=== PATIENT | male | born 1965 | race Caucasian/White ===

== ENCOUNTER → 2019-10-01 08:10 | Outpatient (BNVA) | payer OTHER, SELFPAY | PROVIDERS: Family Provider Family Medicine; PCP Emergency Medicine Emergency Medical Services; Visit Provider Internal Medicine Critical Care Medicine | DX: J45.909 Unspecified asthma, uncomplicated (principal); R91.1 Solitary pulmonary nodule | CPT/HCPCS: 80061; 82947; 83036 ==

== ENCOUNTER 2019-10-04 10:37 | Emergency (ER) | payer OTHER, SELFPAY ==
[2019-10-04 10:44] VITALS: BMI 28.1
[2019-10-04 10:47] VITALS: BP 113/90; PULSE 105; RESP 20; TEMP 37.3; O2SAT 94
[2019-10-04 11:00] VITALS: O2SAT 94
--- NOTE | 2019-10-04 11:06 | ED_ITS ---
HPI - General Adult General: Chief complaint: General Medical Stated complaint: cp/sob Time Seen by Provider: 10/04/19 10:46 History of Present Illness: HPI narrative: 54-year-old male comes in complaining of flulike symptoms for last couple days temp up to 100.9 he said nausea vomiting and diarrhea denies any hematochezia melena hematemesis or coffee-ground emesis is not had any ill contacts a little bit of pressure pressure associated with it as well. He has some asthma and states he has a chronic nocturnal cough but slightly worse the last few days but he has not been coughing anything up. He works in [employer] at [employer] [facility] [place]. Denies any radiation of chest pressure into the neck or arms. Onset (ago): day(s) Location: chest and abdomen Radiation: non-radiation Severity: mild Pain Consistency: intermittent Associated symptoms: Reports cough, decreased appetite, fevers/chills, malaise, nausea, vomiting and weakness; Deny chest pain, dyspnea or rash Treatments prior to arrival: none Review of Systems Const: Reports: malaise ENMT: Denies: throat pain, ear or mastoid pain, nasal discharge or nasal congestion Card: Denies: chest pain, edema, dyspnea on exertion or orthopnea Resp: Denies: dyspnea, productive cough or non-productive cough GI: Reports: nausea and vomiting : Denies: flank pain, dysuria, urinary frequency or urinary urgency Skin/Breast: Denies: rash or pruritus PFSH ED PFSH: Medical History Asthma Essential (primary) hypertension Hyperlipemia Lung nodule Major depressive disorder Pericarditis PTSD (post-traumatic stress disorder) Surgical History H/O eye surgery Social History Smoking and tobacco status: never smoked Alcohol intake: current Alcohol intake frequency: few times a month Alcohol type: beer Lives independently: Yes Household members: significant other and family Marital status: Single service: Yes Current occupational status: employed Current occupation: [employer] [place] History of recent travel: No Current gender identity: Male Physical Exam Const: COMMON NORMALS: no acute distress GENERAL APPEARANCE: cooperative and comfortable ORIENTATION/CONSCIOUSNESS: Yes awake, Yes oriented to person, Yes oriented to place and Yes oriented to time HENMT: COMMON NORMALS: normocephalic, atraumatic, hearing grossly normal bilaterally, external ears normal, EAC's normal, TM's normal bilaterally, Normal nasal mucous membranes and turbinates present, moist oral mucous membranes and oropharynx normal HEAD & SCALP: normocephalic and atraumatic NOSE: Normal nasal mucous membranes and turbinates present EXTERNAL EAR: Yes external ears normal EXTERNAL AUDITORY CANAL: EAC's normal TYMPANIC MEMBRANE: TM's normal bilaterally Eye: COMMON NORMALS: Equal, round and reactive pupils present, EOMs intact bilaterally, conjunctivae normal and no scleral icterus CONJUNCTIVA: Yes conjunctivae normal PUPIL: Yes Equal, round and reactive pupils present Neck/C-Spine: COMMON NORMALS: full ROM, no lymphadenopathy, supple and no JVD Lymph: LYMPHATIC: no lymphadenopathy noted and no lymphedema noted Resp: COMMON NORMALS: normal respiratory effort, No retractions, No use of accessory muscles and clear to auscultation bilaterally AUSCULTATION: clear to auscultation bilaterally Cardio: COMMON NORMALS: no JVD, regular rate, regular rhythm and No murmurs present (Cardio) RATE: regular rate RHYTHM: regular rhythm GI: COMMON NORMALS: Soft to palpation and No hepatosplenomegaly present AUSCULTATION: Yes normoactive bowel sounds PALPATION: Yes Soft to palpation, No Tenderness to palpation present (GI), No Guarding due to palpation present (GI) and Yes No hepatosplenomegaly present Extremity: COMMON NORMALS: normal to inspection, capillary refill normal, no clubbing, cyanosis or edema, no calf tenderness and no pedal edema Neuro: SENSORIUM/ORIENTATION: Yes oriented to person, Yes oriented to place and Yes oriented to time Skin: COMMON NORMALS: no rashes or lesions noted GENERAL SKIN EXAM: no rashes or lesions noted Course Vital Signs: Vital signs: Vital Signs Temperature 99.2 F 10/04/19 10:47 Pulse Rate 107 H 10/04/19 14:04 Respiratory Rate 20 H 10/04/19 10:47 Blood Pressure 107/71 10/04/19 14:04 Pulse Oximetry 93 10/04/19 14:04 MDM - General Adult MDM Narrative: Medical decision making narrative: Patient is of concern because 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 He is not been associated with anyone at home or any known positive cases of COVID. His sats are a little bit on the low side but he maintains and we did ambulate him and he maintained around the 93 to 95% range. Discussed it with him working to go ahead and discharge him home we will put him on doxycycline and have him use albuterol aggressively. Little bit concerned with his elevated white count but finding no other source. We did do a COVID swab on him we should have that back this evening and made arrangements for him to be contacted he is to remain in quarantine until he gets his results back. Lab Data: Labs: Lab Results 10/04/19 10/04/19 10/04/19 Range/Units 10:55 10:55 10:55 WBC 23.1 H (4.0-10.0) 10^3/ uL RBC 5.24 (4.1-5.3) 10^6/u L Hgb 16.1 (11.7-16.6) g/dL Hct 47.2 (42.0-52.0) % MCV 90.1 (80-94) fL MCH 30.7 (28.0-34.0) pg MCHC 34.1 (30.0-36.0) g/dL RDW 12.0 L (12.1-15.1) % Plt Count 231 (130-400) 10^3/c mm MPV 10.3 (7.4-10.4) fL Neut % (Auto) 93.3 % Lymph % (Auto) 1.3 % [place] % (Auto) 4.5 % Eos % (Auto) 0.0 % Baso % (Auto) 0.3 % Neut # (Auto) 21.5 H (1.8-7.7) 10^3/u L Lymph # (Auto) 0.3 L (0.8-4.8) 10^3/u L [place] # (Auto) 1.1 H (0.2-0.9) 10^3/u L Eos # (Auto) 0.0 (0.0-0.8) 10^3/u L Baso # (Auto) 0.1 (0.0-0.1) 10^3/u L Nucleated RBC % (a uto) 0 % Nucleated RBCs # 0.0 /100WBC Sodium 133 L (136-145) mmol/L Potassium 4.2 (3.5-5.1) mmol/L Chloride 95 L (98-107) mmol/L Carbon Dioxide 24 (22-29) mmol/L Anion Gap 18.2 (5-19) BUN 20 (6-20) mg/dL Creatinine 1.2 (0.7-1.2) mg/dL GFR Calculation 63.1 L (90-130) mL/min Glucose 137 H (65-115) mg/dL Calculated Osmolal ity 275 L (285-295) mOsm/k g Lactate 1.8 (0.5-2.2) mmol/L Calcium 10.1 (8.5-10.5) mg/dL Total Bilirubin 0.5 (0.15-1.2) mg/dL AST 20 (0-40) U/L ALT 25 (0-41) U/L Alkaline Phosphata se 96 (40-130) IU/L Total Protein 7.2 (6.6-8.7) g/dL Albumin 5.0 (3.5-5.2) g/dL Globulin 2.2 (1.3-4.6) g/dL Lipase 13 (13-60) U/L Urine Color (Yellow) Urine Appearance (CLEAR) Urine pH (5-7) Ur Specific Gravit y (1.005-1.030) Urine Protein (Negative) Urine Glucose (UA) (Normal) Urine Ketones (Negative) Urine Blood (Negative) Urine Nitrate (Negative) Urine Bilirubin (NEGATIVE) Urine Urobilinogen (Negative) mg/dL Ur Leukocyte Romina ase (Negative) Urine RBC (0-2) /hpf Urine WBC (0-5) /hpf Ur Squamous Epith Cells (0-5) Urine Bacteria (NONE) Urine Mucus Influenza Type A A g (Negative) Influenza Type B A g (Negative) 10/04/19 10/04/19 Range/Units 12:24 13:12 WBC (4.0-10.0) 10^3/ uL RBC (4.1-5.3) 10^6/u L Hgb (11.7-16.6) g/dL Hct (42.0-52.0) % MCV (80-94) fL MCH (28.0-34.0) pg MCHC (30.0-36.0) g/dL RDW (12.1-15.1) % Plt Count (130-400) 10^3/c mm MPV (7.4-10.4) fL Neut % (Auto) % Lymph % (Auto) % [place] % (Auto) % Eos % (Auto) % Baso % (Auto) % Neut # (Auto) (1.8-7.7) 10^3/u L Lymph # (Auto) (0.8-4.8) 10^3/u L [place] # (Auto) (0.2-0.9) 10^3/u L Eos # (Auto) (0.0-0.8) 10^3/u L Baso # (Auto) (0.0-0.1) 10^3/u L Nucleated RBC % (a uto) % Nucleated RBCs # /100WBC Sodium (136-145) mmol/L Potassium (3.5-5.1) mmol/L Chloride (98-107) mmol/L Carbon Dioxide (22-29) mmol/L Anion Gap (5-19) BUN (6-20) mg/dL Creatinine (0.7-1.2) mg/dL GFR Calculation (90-130) mL/min Glucose (65-115) mg/dL Calculated Osmolal ity (285-295) mOsm/k g Lactate (0.5-2.2) mmol/L Calcium (8.5-10.5) mg/dL Total Bilirubin (0.15-1.2) mg/dL AST (0-40) U/L ALT (0-41) U/L Alkaline Phosphata se (40-130) IU/L Total Protein (6.6-8.7) g/dL Albumin (3.5-5.2) g/dL Globulin (1.3-4.6) g/dL Lipase (13-60) U/L Urine Color Yellow (Yellow) Urine Appearance Clear (CLEAR) Urine pH 5 (5-7) Ur Specific Gravit y 1.020 (1.005-1.030) Urine Protein Neg (Negative) Urine Glucose (UA) Norm (Normal) Urine Ketones 1+ H (Negative) Urine Blood 2+ H (Negative) Urine Nitrate Negative (Negative) Urine Bilirubin 1+ H (NEGATIVE) Urine Urobilinogen Norm (Negative) mg/dL Ur Leukocyte Romina ase Negative (Negative) Urine RBC 0-4 H (0-2) /hpf Urine WBC None (0-5) /hpf Ur Squamous Epith Cells 0-4 H (0-5) Urine Bacteria 1+ H (NONE) Urine Mucus 1+ Influenza Type A A g Negative (Negative) Influenza Type B A g Negative (Negative) Discharge Plan Discharge Patient Disposition: Home, Self-Care Clinical Impression: Bronchitis Condition: Stable Prescriptions: New doxycycline hyclate 100 mg capsule 100 mg PO BID 10 Days Qty: 20 RF: 0 No Action albuterol sulfate [ProAir HFA] 90 mcg/actuation HFA aerosol inhaler 2 puff INHALATION Q6H PRN (Reason: Shortness Of Breath) RF: 0 Complete Multivitamin Tablet 1 tab PO DAILY RF: 0 Symbicort 160-4.5 mcg/actuation HFA aerosol inhaler 2 puff INHALATION BID RF: 0 trazodone 150 mg tablet 150 mg PO DAILY RF: 0 bupropion HCl 75 mg tablet 75 mg PO DAILY RF: 0 ibuprofen 200 mg tablet 800 mg PO Q6H PRN (Reason: Pain) RF: 0 montelukast [Singulair] 10 mg tablet 10 mg PO DAILY 90 Days Qty: 90 RF: 3 fluticasone propionate [Flonase Allergy Relief] 50 mcg/actuation spray,suspension 1 spray INTRANASAL BID 90 Days Qty: 18.2 RF: 3 Discharge Orders: Discharge Order (Routine); Ordered 10/04/19 Ordered By: Christ Almanza Discharge Diet: Advance as tolerated Discharge Activity: Increase activity as tolerated Activity Restrictions/Additional Instructions: You should self quarantine until the results of your COVID-19 test are available. Use albuterol as needed for shortness of breath or wheezing and start on the antibiotic doxycycline twice daily until it is resolved. Discharge Date/Time: 10/04/19 14:04 Coding Level of Care Code ED Business Reporting Developer for Tahir Fwd Exam Comprehensive
--- NOTE | 2019-10-04 11:08 | XR_ITS ---
WS: [id number] CHEST XRAY TECHNIQUE: Portable chest. CLINICAL INFORMATION: dyspnea/cough COMPARISON: March 17, 2019 FINDINGS: Heart: Normal cardiac silhouette. Lungs: Lungs are clear. No consolidation or pleural effusion. Bones: Normal visualized bony structures. XR/XR chest 1V portable [id number] IMPRESSION: No acute chest findings
[2019-10-04 11:24] LABS: Basophils # 0.1 10^3/uL (0.0-0.1); Basophils % 0.3 %; Hematocrit 47.2 % (42.0-52.0); Hemoglobin 16.1 g/dL (11.7-16.6); Lymphocytes # 0.3 10^3/uL (0.8-4.8); Lymphocytes % 1.3 %; Mean Corpuscular HGB Conc 34.1 g/dL (30.0-36.0); Mean Corpuscular Hemoglobin 30.7 pg (28.0-34.0); Mean Corpuscular Volume 90.1 fL (80-94); Mean Platelet Volume 10.3 fL (7.4-10.4); Monocytes # 1.1 10^3/uL (0.2-0.9); Monocytes % 4.5 %; Neutrophils # 21.5 10^3/uL (1.8-7.7); Neutrophils % 93.3 %; Nucleated Red Blood Cells % 0 %; Platelet Count 231 10^3/cmm (130-400); Red Blood Count 5.24 10^6/uL (4.1-5.3); White Blood Count 23.1 10^3/uL (4.0-10.0)
[2019-10-04 11:37] LABS: Alanine Aminotransferase 25 U/L (0-41); Alkaline Phosphatase 96 IU/L (40-130); Anion Gap 18.2 (5-19); Aspartate Amino Transferase 20 U/L (0-40); Blood Urea Nitrogen 20 mg/dL (6-20); Calcium 10.1 mg/dL (8.5-10.5); Carbon Dioxide 24 mmol/L (22-29); Chloride 95 mmol/L (98-107); Globulin 2.2 g/dL (1.3-4.6); Glomerular Filtration Rate 63.1 mL/min (90-130); Glucose 137 mg/dL (65-115); Lipase 13 U/L (13-60); Osmolality Calculated 275 mOsm/kg (285-295); Potassium 4.2 mmol/L (3.5-5.1); Sodium 133 mmol/L (136-145); Total Bilirubin 0.5 mg/dL (0.15-1.2); Total Protein 7.2 g/dL (6.6-8.7)
[2019-10-04 11:38] LABS: Lactate (Lactic Acid level) 1.8 mmol/L (0.5-2.2)
[2019-10-04] MEDS: ondansetron 2 mg/ML SDV 2 mL 4 MG IVP (11:47)
[2019-10-04 11:53] VITALS: BP 129/70; PULSE 98; O2SAT 96
[2019-10-04 12:54] LABS: Influenza A by IFA Negative (Negative); Influenza B by IFA Negative (Negative)
[2019-10-04] MEDS: sodium chloride 0.9% 1,000 ML 999 ML IV (13:11)
[2019-10-04 13:13] VITALS: BP 130/82; PULSE 119; O2SAT 93
--- NOTE | 2019-10-04 13:51 | PC.NURSE ---
pt ambulating in [place] with RT to complete Home O2 eval
[2019-10-04 13:59] LABS: Urine Appearance Clear (CLEAR); Urine Color Yellow (Yellow); pH Urine 5 (5-7)
[2019-10-04 14:00] LABS: Add Urine Microscopic? YES; Bilirubin Urine 1+ (NEGATIVE); Blood Urine 2+ (Negative); Glucose Urine UA Norm (Normal); Ketones Urine 1+ (Negative); Leukocyte Esterase Urine Negative (Negative); Nitrate Urine Negative (Negative); Protein Urine Neg (Negative); Urobilinogen Urine Norm (Negative)
[2019-10-04 14:04] VITALS: BP 107/71; PULSE 107; O2SAT 93
[2019-10-04 14:13] LABS: Add Urine Culture? No; Bacteria Urine 1+; Mucus Urine 1+; RBC Urine 0-4 /hpf (0-2); Squamous Epithelial Cell Urine 0-4 (0-5)
[2019-10-05 12:49] LABS: Coronavirus Lab Test PTC NOT DETECTED
--- NOTE | 2019-10-05 13:11 | PC.NURSE ---
pt was contacted by Lissa Medina and given the results of his COVID test
== END 2019-10-04 14:04 | disposition home or self-care (01) ==
PROVIDERS: Emergency Provider Family Medicine
DX: J40 Bronchitis, not specified as acute or chronic (principal); I10 Essential (primary) hypertension; E78.5 Hyperlipidemia, unspecified
CPT/HCPCS: 12345; 71045; 80053; 81001; 83605; 83690; 85025; 87635; 87804; 96360; 96361; 96374; 96375; 99283; 99284; J2405; J7030

== ENCOUNTER 2019-11-13 12:54 | Emergency (ER) | payer OTHER, SELFPAY ==
[2019-11-13 13:10] VITALS: BP 146/92; PULSE 80; RESP 14; TEMP 36.8; O2SAT 96; BMI 27.3
--- NOTE | 2019-11-13 14:46 | XRR_ITS ---
PROCEDURE INFORMATION: Exam: XR Chest, 1 View Exam date and time: 11/13/2019 3:01 PM Age: 54 years old Clinical indication: Dyspnea; Patient HX: Pain in chest and upper back with deep breath, dry cough TECHNIQUE: Imaging protocol: XR of the chest Views: 1 view. COMPARISON: CR XR chest 1V portable [id number] 10/04/2019 11:18 AM FINDINGS: Lungs: Unremarkable. No consolidation. Pleural space: Unremarkable. No pleural effusion. No pneumothorax. Heart/Mediastinum: Unremarkable. No cardiomegaly. Bones/joints: Unremarkable. XR/XR chest 1V portable [id number] IMPRESSION: No acute findings.
--- NOTE | 2019-11-13 14:48 | ECG_ITS ---
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 Measurements Intervals [place] Rate: 65 P: 42 NE: 209 QRS: 26 QRSD: 113 T: 35 QT: 406 QTc: 423 Interpretive Statements SINUS RHYTHM INDETERMINATE AXIS PATTERN CONSISTENT WITH PULMONARY DISEASE MODERATE INTRAVENTRICULAR CONDUCTION DELAY [110+ ms QRS DURATION] Compared to ECG 03/17/2019 20:12:05 Indeterminate axis now present Intraventricular conduction delay now present Electronically Signed On 11-13-2019 19:33:32 CDT by Johnnie Esposito M.D. [id number]
[2019-11-13 14:57] LABS: Basophils # 0.1 10^3/uL (0.0-0.1); Basophils % 0.5 %; Eosinophils # 0.5 10^3/uL (0.0-0.8); Eosinophils % 3.6 %; Hematocrit 40.9 % (42.0-52.0); Hemoglobin 13.8 g/dL (11.7-16.6); Lymphocytes # 1.3 10^3/uL (0.8-4.8); Lymphocytes % 10.7 %; Mean Corpuscular HGB Conc 33.7 g/dL (30.0-36.0); Mean Corpuscular Hemoglobin 30.6 pg (28.0-34.0); Mean Corpuscular Volume 90.7 fL (80-94); Mean Platelet Volume 10.1 fL (7.4-10.4); Monocytes # 0.9 10^3/uL (0.2-0.9); Monocytes % 7.5 %; Neutrophils # 9.6 10^3/uL (1.8-7.7); Neutrophils % 77.1 %; Nucleated Red Blood Cells % 0 %; Platelet Count 242 10^3/cmm (130-400); Red Blood Count 4.51 10^6/uL (4.1-5.3); Red Cell Distribution Width 12.2 % (12.1-15.1); White Blood Count 12.4 10^3/uL (4.0-10.0)
[2019-11-13 15:14] LABS: Alanine Aminotransferase 21 U/L (0-41); Albumin Level 4.7 g/dL (3.5-5.2); Alkaline Phosphatase 94 IU/L (40-130); Anion Gap 16.1 (5-19); Aspartate Amino Transferase 21 U/L (0-40); Blood Urea Nitrogen 16 mg/dL (6-20); Calcium 9.6 mg/dL (8.5-10.5); Carbon Dioxide 25 mmol/L (22-29); Chloride 101 mmol/L (98-107); Globulin 1.7 g/dL (1.3-4.6); Glomerular Filtration Rate 87.9 mL/min (90-130); Glucose 92 mg/dL (65-115); Osmolality Calculated 282 mOsm/kg (285-295); Potassium 4.1 mmol/L (3.5-5.1); Sodium 138 mmol/L (136-145); Total Bilirubin 0.2 mg/dL (0.15-1.2); Total Protein 6.4 g/dL (6.6-8.7)
--- NOTE | 2019-11-13 15:23 | W.ED.SOB ---
HPI - SOB/Dyspnea General: Chief Complaint: Shortness of Breath/Dyspnea Stated Complaint: sob Time Seen by Provider: 11/13/19 14:46 History of Present Illness: HPI Narrative: 54-year-old male comes in complaining of shortness of breath he said this popping sensation in his chest when he takes a deep breath for last 4 days. Is a cough at night that is nonproductive. He is not had a fever at all he is not had any chest pain really last couple days is just this popping sensation in the back of his chest states he feels like some is putting in the in his chest when he takes a deep breath he does get acid reflux at times time will wake him up middle of the night has not been taking anything for it. He has a known history of asthma is not been on any course of steroids or anything for exacerbation recently. MD elicited complaint: shortness of breath Pertinent past history: asthma Onset (ago): day(s) (4) Context: other (Occurs with deep breath) Timing: intermittent Severity: mild Exacerbating factors: inspiration Relieving factors: rest Known history of: asthma Associated symptoms: Reports no associated symptoms; Deny abdominal pain, chest pain, fever(s), nausea, orthopnea or vomiting Treatment prior to arrival: none Review of Systems Const: Denies: fever(s), chills, body aches, change in appetite, fatigue or malaise ENMT: Denies: throat pain, ear or mastoid pain, nasal discharge or nasal congestion Card: Denies: chest pain, edema, dyspnea on exertion or orthopnea Resp: Denies: dyspnea, productive cough or non-productive cough GI: Denies: abdominal pain, nausea, vomiting, hematemesis, coffee ground emesis, diarrhea, constipation, bloating, hematochezia or melena : Denies: flank pain, dysuria, urinary frequency or urinary urgency Skin/Breast: Denies: rash or pruritus PFSH ED PFSH: Medical History Asthma Essential (primary) hypertension Hyperlipemia Lung nodule Major depressive disorder Pericarditis PTSD (post-traumatic stress disorder) Surgical History H/O eye surgery Social History (Reviewed 11/16/19 @ 13:51 by LOW [place] Smoking and tobacco status: never smoked Alcohol intake: current Alcohol intake frequency: few times a month Alcohol type: beer Lives independently: Yes Household members: significant other and family Marital status: Single service: Yes Current occupational status: employed Current occupation: [employer] [place] History of recent travel: No Current gender identity: Male Physical Exam Const: COMMON NORMALS: no acute distress GENERAL APPEARANCE: cooperative and comfortable ORIENTATION/CONSCIOUSNESS: Yes awake, Yes oriented to person, Yes oriented to place and Yes oriented to time HENMT: COMMON NORMALS: normocephalic, atraumatic, hearing grossly normal bilaterally, external ears normal, EAC's normal, TM's normal bilaterally, Normal nasal mucous membranes and turbinates present, moist oral mucous membranes and oropharynx normal HEAD & SCALP: normocephalic and atraumatic NOSE: Normal nasal mucous membranes and turbinates present EXTERNAL EAR: Yes external ears normal EXTERNAL AUDITORY CANAL: EAC's normal TYMPANIC MEMBRANE: TM's normal bilaterally Eye: COMMON NORMALS: Equal, round and reactive pupils present, EOMs intact bilaterally, conjunctivae normal and no scleral icterus CONJUNCTIVA: Yes conjunctivae normal PUPIL: Yes Equal, round and reactive pupils present Neck/C-Spine: COMMON NORMALS: full ROM, no lymphadenopathy, supple and no JVD Lymph: LYMPHATIC: no lymphadenopathy noted and no lymphedema noted Resp: COMMON NORMALS: normal respiratory effort, No retractions, No use of accessory muscles and clear to auscultation bilaterally AUSCULTATION: clear to auscultation bilaterally Cardio: COMMON NORMALS: no JVD, regular rate, regular rhythm and No murmurs present (Cardio) RATE: regular rate RHYTHM: regular rhythm GI: COMMON NORMALS: Soft to palpation and No hepatosplenomegaly present AUSCULTATION: Yes normoactive bowel sounds PALPATION: Yes Soft to palpation, No Tenderness to palpation present (GI), No Guarding due to palpation present (GI) and Yes No hepatosplenomegaly present Extremity: COMMON NORMALS: normal to inspection, capillary refill normal, no clubbing, cyanosis or edema, no calf tenderness and no pedal edema Neuro: SENSORIUM/ORIENTATION: Yes oriented to person, Yes oriented to place and Yes oriented to time Skin: COMMON NORMALS: no rashes or lesions noted GENERAL SKIN EXAM: no rashes or lesions noted Course Vital Signs: Vital signs: Vital Signs Temperature 98.3 F 11/13/19 13:10 Pulse Rate 70 11/13/19 15:36 Respiratory Rate 15 11/13/19 15:36 Blood Pressure 144/85 11/13/19 15:36 Pulse Oximetry 98 11/13/19 15:36 MDM - SOB/Dyspnea MDM Narrative: Medical decision making narrative: Due to findings with the patient we will go and discharge home not really finding anything respiratory vale phlegm follow-up with primary care may need to refer to pulmonology for numbness start him on some PPI seems to have this mostly at night is waking him up. Lab Data: Labs: Lab Results 11/13/19 11/13/19 Range/Units 14:50 14:50 WBC 12.4 H (4.0-10.0) 10^3/ uL RBC 4.51 (4.1-5.3) 10^6/u L Hgb 13.8 (11.7-16.6) g/dL Hct 40.9 L (42.0-52.0) % MCV 90.7 (80-94) fL MCH 30.6 (28.0-34.0) pg MCHC 33.7 (30.0-36.0) g/dL RDW 12.2 (12.1-15.1) % Plt Count 242 (130-400) 10^3/c mm MPV 10.1 (7.4-10.4) fL Neut % (Auto) 77.1 % Lymph % (Auto) 10.7 % [place] % (Auto) 7.5 % Eos % (Auto) 3.6 % Baso % (Auto) 0.5 % Neut # (Auto) 9.6 H (1.8-7.7) 10^3/u L Lymph # (Auto) 1.3 (0.8-4.8) 10^3/u L [place] # (Auto) 0.9 (0.2-0.9) 10^3/u L Eos # (Auto) 0.5 (0.0-0.8) 10^3/u L Baso # (Auto) 0.1 (0.0-0.1) 10^3/u L Nucleated RBC % (a uto) 0 % Nucleated RBCs # 0.0 /100WBC Sodium 138 (136-145) mmol/L Potassium 4.1 (3.5-5.1) mmol/L Chloride 101 (98-107) mmol/L Carbon Dioxide 25 (22-29) mmol/L Anion Gap 16.1 (5-19) BUN 16 (6-20) mg/dL Creatinine 0.9 (0.7-1.2) mg/dL GFR Calculation 87.9 L (90-130) mL/min Glucose 92 (65-115) mg/dL Calculated Osmolal ity 282 L (285-295) mOsm/k g Calcium 9.6 (8.5-10.5) mg/dL Total Bilirubin 0.2 (0.15-1.2) mg/dL AST 21 (0-40) U/L ALT 21 (0-41) U/L Alkaline Phosphata se 94 (40-130) IU/L Total Protein 6.4 L (6.6-8.7) g/dL Albumin 4.7 (3.5-5.2) g/dL Globulin 1.7 (1.3-4.6) g/dL Discharge Plan Discharge Patient Disposition: Home, Self-Care Clinical Impression: Asthma, Gastro-esophageal reflux Condition: Stable Prescriptions: New omeprazole 20 mg capsule,delayed release(DR/EC) 20 mg PO DAILY 84 Days RF: 1 No Action montelukast [Singulair] 10 mg tablet 10 mg PO DAILY 30 Days Qty: 30 RF: 3 albuterol sulfate [ProAir HFA] 90 mcg/actuation HFA aerosol inhaler 2 puff INHALATION Q6H PRN (Reason: Shortness Of Breath) RF: 0 Complete Multivitamin Tablet 1 tab PO DAILY RF: 0 Symbicort 160-4.5 mcg/actuation HFA aerosol inhaler 2 puff INHALATION BID RF: 0 trazodone 150 mg tablet 300 mg PO BEDTIME RF: 0 bupropion HCl 150 mg tablet sustained-release 12 hr 150 mg PO DAILY RF: 0 Discharge Orders: Discharge Order (Routine); Ordered 11/13/19 Ordered By: Christ Almanza Referrals: Christiano Whitt DO [Primary Care Provider] - Discharge Date/Time: 11/13/19 15:37 Coding Level of Care Code ED 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
[2019-11-13 15:36] VITALS: BP 144/85; PULSE 70; RESP 15; O2SAT 98
== END 2019-11-13 15:37 | disposition home or self-care (01) ==
PROVIDERS: Emergency Provider Family Medicine; PCP Emergency Medicine Emergency Medical Services
DX: J45.909 Unspecified asthma, uncomplicated (principal); K21.9 Gastro-esophageal reflux disease without esophagitis; I10 Essential (primary) hypertension; E78.5 Hyperlipidemia, unspecified
CPT/HCPCS: 12345; 71045; 80053; 85025; 93005; 99283

== ENCOUNTER 2019-11-14 12:26 | Outpatient (CLI) | payer OTHER, SELFPAY ==
[2019-11-14 12:49] LABS: Basophils # 0.1 10^3/uL (0.0-0.1); Basophils % 0.5 %; Eosinophils # 0.5 10^3/uL (0.0-0.8); Eosinophils % 3.7 %; Hematocrit 43.8 % (42.0-52.0); Hemoglobin 14.9 g/dL (11.7-16.6); Lymphocytes # 1.2 10^3/uL (0.8-4.8); Lymphocytes % 9.7 %; Mean Corpuscular Hemoglobin 30.7 pg (28.0-34.0); Mean Corpuscular Volume 90.1 fL (80-94); Mean Platelet Volume 9.8 fL (7.4-10.4); Monocytes # 0.9 10^3/uL (0.2-0.9); Monocytes % 7.5 %; Neutrophils # 9.7 10^3/uL (1.8-7.7); Nucleated Red Blood Cells % 0 %; Platelet Count 282 10^3/cmm (130-400); Red Blood Count 4.86 10^6/uL (4.1-5.3); Red Cell Distribution Width 12.3 % (12.1-15.1); White Blood Count 12.5 10^3/uL (4.0-10.0)
== END 2019-11-14 12:27 | disposition home or self-care (01) ==
PROVIDERS: PCP Emergency Medicine Emergency Medical Services; Visit Provider Internal Medicine Critical Care Medicine
DX: J45.909 Unspecified asthma, uncomplicated (principal)
CPT/HCPCS: 85025

== ENCOUNTER 2020-02-17 06:57 | Emergency (ER) | payer OTHER, SELFPAY ==
--- NOTE | 2020-02-17 07:00 | XRR_ITS ---
PROCEDURE INFORMATION: Exam: XR Chest, 1 View Exam date and time: 02/17/2020 7:01 AM Age: 54 years old Clinical indication: Chest pain; Additional info: Cp TECHNIQUE: Imaging protocol: XR of the chest Views: 1 view. COMPARISON: Most recent CR XR chest 1V portable [id number] 11/13/2019 2:51 PM FINDINGS: Lungs: Mild diffuse interstitial prominence likely accentuated by low lung volumes. No focal consolidation. Subcentimeter right basilar nodule unchanged since at least July 27, 2018, most likely representing a granuloma. Pleural space: Unremarkable. No evidence of pleural effusion or pneumothorax. Heart/Mediastinum: Unremarkable. No cardiomegaly. Bones/joints: Unremarkable. XR/XR chest 1V portable [id number] IMPRESSION: No acute findings.
--- NOTE | 2020-02-17 07:00 | ECG_ITS ---
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 Measurements Intervals [place] Rate: 78 P: 63 GA: 191 QRS: 106 QRSD: 99 T: 35 QT: 358 QTc: 410 Interpretive Statements SINUS RHYTHM INDETERMINATE AXIS PATTERN CONSISTENT WITH PULMONARY DISEASE Compared to ECG 11/13/2019 15:13:56 Intraventricular conduction delay no longer present Electronically Signed On 02-17-2020 20:24:38 CDT by Daniel Ochoa M.D. [id number]
[2020-02-17 07:09] VITALS: BP 143/107; PULSE 88; RESP 18; O2SAT 94; BMI 28.1
--- NOTE | 2020-02-17 07:25 | W.ED.GENADLT ---
HPI - General Adult General: Chief complaint: General Medical Stated complaint: chest pressure/covid symptoms Time Seen by Provider: 02/17/20 07:04 Source: patient Mode of arrival: ambulatory Limitations: no limitations History of Present Illness: MD complaint: 54-year-old male patient presents to the emergency department complaining of chest pressure and shortness of breath. Patient states this is not chest pain more like a cold in his chest. 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 Patient complains of cough patient states he has this chest pressure when he coughs. Patient denies any fever patient denies any neck pain. Patient denies any body aches. Patient does state he feels rundown. Onset (ago): day(s) (2) Associated symptoms: Reports chest pain (Pt c/o chest pressure); Deny dyspnea, headache(s), nausea, rash or vomiting Review of Systems General: Reports: 10 or more systems reviewed and unremarkable except in HPI and below Const: Reports: fatigue; Denies: fever(s), chills or body aches Eyes: Denies: change in vision or blurry vision ENMT: Denies: throat pain, mouth pain or ear or mastoid pain Card: Reports: chest pain (Pt c/o chest pressure) Resp: Denies: dyspnea, non-productive cough, wheezing or stridor GI: Denies: abdominal pain, nausea, vomiting, diarrhea or constipation : Denies: flank pain, difficulty urinating, dysuria or urinary frequency Musc: Denies: neck pain, back pain or extremity pain Skin/Breast: Denies: rash Neuro: Denies: headache(s), numbness in extremities or weakness in extremities Psych: Denies: anxiety, suicidal ideation or homicidal ideation PFSH ED PFSH: Medical History Asthma Essential (primary) hypertension Hyperlipemia Lung nodule Major depressive disorder Pericarditis PTSD (post-traumatic stress disorder) Surgical History H/O eye surgery Social History Smoking and tobacco status: never smoked Alcohol intake: current Alcohol intake frequency: few times a month Alcohol type: beer Lives independently: Yes Household members: significant other and family Marital status: Single service: Yes Current occupational status: employed Current occupation: [employer] [place] History of recent travel: No Current gender identity: Male Physical Exam Const: COMMON NORMALS: no acute distress, average body habitus, patient oriented x3, no limitations, healthy appearing, alert and well nourished HENMT: COMMON NORMALS: normocephalic, atraumatic, hearing grossly normal bilaterally, external ears normal, EAC's normal, TM's normal bilaterally, Normal external nose present, Normal nasal mucous membranes and turbinates present, moist oral mucous membranes, oropharynx normal, dentition normal and gingiva normal HEAD & SCALP: normocephalic and atraumatic NOSE: Normal external nose present and Normal nasal mucous membranes and turbinates present EXTERNAL EAR: Yes external ears normal EXTERNAL AUDITORY CANAL: EAC's normal TYMPANIC MEMBRANE: TM's normal bilaterally Eye: COMMON NORMALS: Equal, round and reactive pupils present, EOMs intact bilaterally, conjunctivae normal, no scleral icterus, no papilledema, normal visual kumari by confrontation and fundi normal bilaterally CONJUNCTIVA: Yes conjunctivae normal PUPIL: Yes Equal, round and reactive pupils present DIRECT OPHTHALMOSCOPY: Yes no papilledema and Yes fundi normal bilaterally Neck/C-Spine: COMMON NORMALS: full ROM, no lymphadenopathy, supple, no meningeal signs, no JVD and Thyroid normal THYROID: Thyroid normal Chest: COMMONS NORMALS: normal inspection of the chest, normal palpation of entire chest wall, normal inspection of the breasts and normal palpation of the breasts Resp: COMMON NORMALS: normal respiratory effort, No retractions, No use of accessory muscles, clear to auscultation bilaterally and percussion normal AUSCULTATION: clear to auscultation bilaterally PERCUSSION: percussion normal Cardio: COMMON NORMALS: no JVD, regular rate and regular rhythm RATE: regular rate RHYTHM: regular rhythm GI: COMMON NORMALS: Normal to inspection, nondistended, normoactive bowel sounds present, Soft to palpation, non-tender, No hepatosplenomegaly present, no masses and no bruits PALPATION: Yes Soft to palpation and Yes No hepatosplenomegaly present : COMMON NORMALS: Yes no CVA tenderness BLADDER/KIDNEY EXAM: Yes no CVA tenderness Back/Pelvis: COMMON NORMALS: no CVA tenderness, thoracic and lumbar spine normal to inspection, no thoracic nor lumbar tenderness, thoraco-lumbar ROM normal and straight leg raise negative bilaterally Extremity: COMMON NORMALS: normal to inspection, full ROM, capillary refill normal, no joint enlargement, no clubbing, cyanosis or edema, no calf tenderness and no pedal edema Neuro: COMMON NORMALS: patient oriented x3, CN's II-XII intact bilaterally, moves all extremities, no focal motor deficits, no sensory deficits noted and gait normal SENSORIUM/ORIENTATION: Yes alert MENINGEAL SIGNS: Yes no meningeal signs Psych: COMMON NORMALS: mental status grossly normal, Normal thought process present, cooperative, normal affect, speech normal, activity/motor behavior normal, denies hallucinations, denies homicidal ideation and denies suicidal ideation SPEECH: Yes normal speech THOUGHT PROCESS: Normal thought process present Skin: COMMON NORMALS: no rashes or lesions noted, no wounds, turgor normal, no jaundice, no petechiae and no mottling GENERAL SKIN EXAM: no rashes or lesions noted and turgor normal Course Vital Signs: Vital signs: Vital Signs Temperature 98.2 F 02/17/20 12:22 Pulse Rate 81 02/17/20 12:22 Respiratory Rate 20 H 02/17/20 12:22 Blood Pressure 136/74 02/17/20 12:22 Pulse Oximetry 94 02/17/20 12:22 MDM - General Adult MDM Narrative: Medical decision making narrative: Patient is well-appearing nontoxic and in no acute distress. Patient's vital signs are stable. 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 Patient's chest x-ray is as follows [address] [address] XRay Report Signed Patient: Charles Looney #: [id number] : 1965Acct#:[id number] Age/Sex: 54 / MADM Date: 02/17/20 Loc: ERRoom/Bed: Attending Dr: Ordering Provider/Ordering MD: Josue Chaney MD Date of Service: 02/17/20 Procedure(s): XR chest 1V portable [id number] Accession Number(s): [id number] Report Number: [id number] PROCEDURE INFORMATION: Exam: XR Chest, 1 View Exam date and time: 02/17/2020 7:01 AM Age: 54 years old Clinical indication: Chest pain; Additional info: Cp TECHNIQUE: Imaging protocol: XR of the chest Views: 1 view. COMPARISON: Most recent CR XR chest 1V portable [id number] 11/13/2019 2:51 PM FINDINGS: Lungs: Mild diffuse interstitial prominence likely accentuated by low lung volumes. No focal consolidation. Subcentimeter right basilar nodule unchanged since at least July 27, 2018, most likely representing a granuloma. Pleural space: Unremarkable. No evidence of pleural effusion or pneumothorax. Heart/Mediastinum: Unremarkable. No cardiomegaly. Bones/joints: Unremarkable. XR/XR chest 1V portable [id number] IMPRESSION: No acute findings. Patient did have a slightly elevated troponin initially repeat troponin was normal patient's EKG showed sinus rhythm 78 bpm there is no ST elevation or depression noted given this cardiac ischemia is very unlikely. Patient was given an albuterol inhaler and states he did have some improvement with this. Patient does not have evidence of hypoxia. There is no evidence of respiratory distress. I have advised patient that he will need to self quarantine into the results of his COVID test is back. I advised patient to rest and hydrate. At this time I do not feel any further testing is needed. I have advised patient to follow-up with primary care physician return to the emergency department as needed patient is medically cleared and appropriate for discharge Lab Data: Labs: Lab Results 02/17/20 02/17/20 02/17/20 Range/Units 08:17 08:17 08:17 WBC 14.3 H (4.0-10.0) 10^3/ uL RBC 5.00 (4.1-5.3) 10^6/u L Hgb 15.4 (11.7-16.6) g/dL Hct 44.9 (42.0-52.0) % MCV 89.8 (80-94) fL MCH 30.8 (28.0-34.0) pg MCHC 34.3 (30.0-36.0) g/dL RDW 12.0 L (12.1-15.1) % Plt Count 241 (130-400) 10^3/c mm MPV 10.0 (7.4-10.4) fL Neut % (Auto) 83.5 % Lymph % (Auto) 6.7 % [place] % (Auto) 6.7 % Eos % (Auto) 2.2 % Baso % (Auto) 0.4 % Neut # (Auto) 11.98 H (1.8-7.7) 10^3/u L Lymph # (Auto) 1.0 (0.8-4.8) 10^3/u L [place] # (Auto) 1.0 H (0.2-0.9) 10^3/u L Eos # (Auto) 0.3 (0.0-0.8) 10^3/u L Baso # (Auto) 0.1 (0.0-0.1) 10^3/u L Nucleated RBC % (a uto) 0 % Nucleated RBCs # 0.0 /100WBC Sodium 139 (136-145) mmol/L Potassium 4.7 (3.5-5.1) mmol/L Chloride 100 (98-107) mmol/L Carbon Dioxide 27 (22-29) mmol/L Anion Gap 16.7 (5-19) BUN 23 H (6-20) mg/dL Creatinine 1.0 (0.7-1.2) mg/dL GFR Calculation 77.9 L (90-130) mL/min Glucose 88 (65-115) mg/dL Calculated Osmolal ity 291 (285-295) mOsm/k g Calcium 10.3 (8.5-10.5) mg/dL Total Bilirubin 0.4 (0.15-1.2) mg/dL AST 28 (0-40) U/L ALT 32 (0-41) U/L Alkaline Phosphata se 95 (40-130) IU/L Troponin T Gen 5 n g/L 18 H (0-15) ng/L Total Protein 6.2 L (6.6-8.7) g/dL Albumin 4.8 (3.5-5.2) g/dL Globulin 1.4 (1.3-4.6) g/dL 02/17/20 Range/Units 11:00 WBC (4.0-10.0) 10^3/ uL RBC (4.1-5.3) 10^6/u L Hgb (11.7-16.6) g/dL Hct (42.0-52.0) % MCV (80-94) fL MCH (28.0-34.0) pg MCHC (30.0-36.0) g/dL RDW (12.1-15.1) % Plt Count (130-400) 10^3/c mm MPV (7.4-10.4) fL Neut % (Auto) % Lymph % (Auto) % [place] % (Auto) % Eos % (Auto) % Baso % (Auto) % Neut # (Auto) (1.8-7.7) 10^3/u L Lymph # (Auto) (0.8-4.8) 10^3/u L [place] # (Auto) (0.2-0.9) 10^3/u L Eos # (Auto) (0.0-0.8) 10^3/u L Baso # (Auto) (0.0-0.1) 10^3/u L Nucleated RBC % (a uto) % Nucleated RBCs # /100WBC Sodium (136-145) mmol/L Potassium (3.5-5.1) mmol/L Chloride (98-107) mmol/L Carbon Dioxide (22-29) mmol/L Anion Gap (5-19) BUN (6-20) mg/dL Creatinine (0.7-1.2) mg/dL GFR Calculation (90-130) mL/min Glucose (65-115) mg/dL Calculated Osmolal ity (285-295) mOsm/k g Calcium (8.5-10.5) mg/dL Total Bilirubin (0.15-1.2) mg/dL AST (0-40) U/L ALT (0-41) U/L Alkaline Phosphata se (40-130) IU/L Troponin T Gen 5 n g/L 15 (0-15) ng/L Total Protein (6.6-8.7) g/dL Albumin (3.5-5.2) g/dL Globulin (1.3-4.6) g/dL Discharge Plan Discharge Patient Disposition: Home Clinical Impression: Close exposure to COVID-19 virus Condition: Stable Prescriptions: No Action nitroglycerin 0.4 mg tablet, sublingual 0.4 mg SUBLINGUAL Q5M PRN (Reason: chest pain) Qty: 25 RF: 3 albuterol sulfate [ProAir HFA] 90 mcg/actuation HFA aerosol inhaler 2 puff INHALATION Q6H PRN (Reason: Shortness Of Breath) RF: 0 Complete Multivitamin Tablet 1 tab PO DAILY RF: 0 Symbicort 160-4.5 mcg/actuation HFA aerosol inhaler 2 puff INHALATION BID RF: 0 trazodone 150 mg tablet 300 mg PO BEDTIME RF: 0 bupropion HCl 150 mg tablet sustained-release 12 hr 150 mg PO DAILY RF: 0 Discharge Orders: Discharge Order (Routine); Ordered 02/17/20 Ordered By: Melania Barragan Referrals: Christiano Whitt DO [Primary Care Provider] - Discharge Diet: Advance as tolerated Discharge Activity: Resume usual activity Activity Restrictions/Additional Instructions: Please self quarantine until Covid test results are known Please return to ER with Shortness of breath chest pain or any other concerning symptom Discharge Date/Time: 02/17/20 12:24 Coding Level of Care Code ED Licensed Marriage And Family Therapist for Anandg Fwd Exam Comprehensive
[2020-02-17 08:34] LABS: Basophils # 0.1 10^3/uL (0.0-0.1); Basophils % 0.4 %; Eosinophils # 0.3 10^3/uL (0.0-0.8); Eosinophils % 2.2 %; Hematocrit 44.9 % (42.0-52.0); Hemoglobin 15.4 g/dL (11.7-16.6); Lymphocytes % 6.7 %; Mean Corpuscular HGB Conc 34.3 g/dL (30.0-36.0); Mean Corpuscular Hemoglobin 30.8 pg (28.0-34.0); Mean Corpuscular Volume 89.8 fL (80-94); Monocytes % 6.7 %; Neutrophils # 11.98 10^3/uL (1.8-7.7); Neutrophils % 83.5 %; Nucleated Red Blood Cells % 0 %; Platelet Count 241 10^3/cmm (130-400); White Blood Count 14.3 10^3/uL (4.0-10.0)
[2020-02-17] MEDS: albuterol 8 gm MDI 2 PUFF INHALATION (08:53)
[2020-02-17 08:54] VITALS: PULSE 77; RESP 17; O2SAT 96
[2020-02-17 08:56] LABS: Alanine Aminotransferase 32 U/L (0-41); Albumin Level 4.8 g/dL (3.5-5.2); Alkaline Phosphatase 95 IU/L (40-130); Anion Gap 16.7 (5-19); Aspartate Amino Transferase 28 U/L (0-40); Blood Urea Nitrogen 23 mg/dL (6-20); Calcium 10.3 mg/dL (8.5-10.5); Carbon Dioxide 27 mmol/L (22-29); Chloride 100 mmol/L (98-107); Globulin 1.4 g/dL (1.3-4.6); Glomerular Filtration Rate 77.9 mL/min (90-130); Glucose 88 mg/dL (65-115); Osmolality Calculated 291 mOsm/kg (285-295); Potassium 4.7 mmol/L (3.5-5.1); Sodium 139 mmol/L (136-145); Total Bilirubin 0.4 mg/dL (0.15-1.2); Total Protein 6.2 g/dL (6.6-8.7)
[2020-02-17 09:00] LABS: Troponin T (5th) Once 18 ng/L (0-15)
[2020-02-17 11:42] LABS: Troponin T (5th) Once 15 ng/L (0-15)
[2020-02-17 12:21] VITALS: BP 136/74; PULSE 81; RESP 20; O2SAT 94
[2020-02-17 12:22] VITALS: BP 136/74; PULSE 81; RESP 20; TEMP 36.8; O2SAT 94
[2020-02-19 21:08] LABS: Quest SARS-CoV-2 RNA NOT DETECTED (NOT DETECTED)
--- NOTE | 2020-02-20 09:26 | PC.NURSE ---
Pt called and notified of negative COVID result.
== END 2020-02-17 12:24 | disposition home or self-care (01) ==
PROVIDERS: Emergency Provider Registered Nurse; PCP Emergency Medicine Emergency Medical Services
DX: Z20.828 Contact with and (suspected) exposure to other viral communicable diseases (principal); I10 Essential (primary) hypertension; E78.5 Hyperlipidemia, unspecified
CPT/HCPCS: 12345; 71045; 80053; 84484; 85025; 87635; 93005; 94640; 99283; J3535

== ENCOUNTER → 2020-03-14 12:44 | Outpatient (BNVA) | payer OTHER, SELFPAY | PROVIDERS: PCP Emergency Medicine Emergency Medical Services; Visit Provider Internal Medicine Critical Care Medicine | DX: J45.909 Unspecified asthma, uncomplicated (principal) | CPT/HCPCS: 87635 ==

== ENCOUNTER → 2020-08-28 09:58 | Outpatient (BNVA) | payer OTHER, SELFPAY | PROVIDERS: PCP Emergency Medicine Emergency Medical Services; Visit Provider Surgery | DX: Z20.822 Contact with and (suspected) exposure to COVID-19 (principal); Z11.52 Encounter for screening for COVID-19; R11.2 Nausea with vomiting, unspecified; R19.7 Diarrhea, unspecified | CPT/HCPCS: 87635 ==

== ENCOUNTER 2020-09-01 06:46 | Day surgery (SDC) | payer OTHER, SELFPAY ==
[2020-08-27 10:01] LABS: Basophils # 0.1 10^3/uL (0.0-0.1); Basophils % 0.5 %; Eosinophils # 0.3 10^3/uL (0.0-0.8); Eosinophils % 2.2 %; Hematocrit 40.1 % (42.0-52.0); Hemoglobin 13.4 g/dL (11.7-16.6); Lymphocytes # 0.9 10^3/uL (0.8-4.8); Lymphocytes % 7.1 %; Mean Corpuscular HGB Conc 33.4 g/dL (30.0-36.0); Mean Corpuscular Hemoglobin 30.6 pg (28.0-34.0); Mean Corpuscular Volume 91.6 fL (80-94); Mean Platelet Volume 9.8 fL (7.4-10.4); Monocytes % 7.6 %; Neutrophils # 10.18 10^3/uL (1.8-7.7); Neutrophils % 81.8 %; Nucleated Red Blood Cells % 0 %; Platelet Count 260 10^3/cmm (130-400); Red Blood Count 4.38 10^6/uL (4.1-5.3); Red Cell Distribution Width 12.2 % (12.1-15.1); White Blood Count 12.5 10^3/uL (4.0-10.0)
[2020-08-27 10:35] LABS: Alanine Aminotransferase 30 U/L (0-41); Albumin Level 4.3 g/dL (3.5-5.2); Alkaline Phosphatase 92 IU/L (40-130); Anion Gap 11.2 (5-19); Aspartate Amino Transferase 29 U/L (0-40); Blood Urea Nitrogen 17 mg/dL (6-20); C Reactive Protein 2.1 mg/L (0.0-4.9); Calcium 8.6 mg/dL (8.5-10.5); Carbon Dioxide 30 mmol/L (22-29); Chloride 104 mmol/L (98-107); Globulin 1.5 g/dL (1.3-4.6); Glomerular Filtration Rate 77.6 mL/min (90-130); Glucose 91 mg/dL (65-115); Osmolality Calculated 293 mOsm/kg (285-295); Potassium 4.2 mmol/L (3.5-5.1); Sodium 141 mmol/L (136-145); Thyroid Stimulating Hormone 2.23 uIU/mL (0.27-4.20); Total Bilirubin 0.4 mg/dL (0.15-1.2); Total Protein 5.8 g/dL (6.6-8.7)
[2020-08-27 10:55] LABS: Erythrocyte Sedimentation Rate 9 mm/hr (0-10)
[2020-08-28 14:15] VITALS: BMI 28.1
--- NOTE | 2020-09-01 07:04 | ANES.PREANE2 ---
Pre-Anesthetic Assessment Pre-Anesthetic Assessment: Height/Weight: Height 1.73 m Weight 83.915 kg Preop Diagnosis: Chronic diarrhea Proposed Procedure: Operation Date: 09/01/20 08:15 Proposed Procedures p EGD/colon [id number] R11.2 R19.7(Not Applicable) - Stepan Saldana MD s Colonoscopy(Not Applicable) - Stepan Saldana MD Was Beta Marilin taken within 24 hours: N/A Was Clonidine taken within 24 hours: N/A Social: Social History: No alcohol and No tobacco Exam: Pre-Anes Outpt Exam: alert, oriented x 3, clear to auscultation bilaterally and regular rate & rhythm Airway: Submandibular: WNL Cervical ROM: WNL MP: 2 Additional comments: Missing several Pulmonary: Pulmonary: Asthma Neuropsych: Neuropsych: Anxiety and Depression Anesthetic Plan: ASA status: 2 Anesthesia: MAC Risk of > 500 ml blood loss (7ml/kg in children): No PFSH Anesthesia PFSH: Medical History Asthma Essential (primary) hypertension Hyperlipemia Lung nodule Major depressive disorder Pericarditis PTSD (post-traumatic stress disorder) Surgical History H/O eye surgery Social History Smoking and tobacco status: never smoked Alcohol intake: current Alcohol intake frequency: few times a month Alcohol type: beer Lives independently: Yes Household members: significant other and family Marital status: Single service: Yes Current occupational status: employed Current [place]: [employer] [place] of recent travel: No Current gender identity: Male Data Anesthesia CBC & Chem 7: 08/27/20 09:50 08/27/20 09:50 Cardiac Studies: No Data to Display
[2020-09-01 07:36] VITALS: BP 110/83; PULSE 73; RESP 18; TEMP 36.7; O2SAT 95
[2020-09-01] MEDS: sodium chloride 0.9% 1,000 ML 30 ML IV (07:52)
--- NOTE | 2020-09-01 08:32 | W.PM.OPSUD ---
Surgery/Procedure H&P Update DATE OF PROCEDURE: September 01, 2020 DATE H&P PERFORMED: 08/13/20 H&P UPDATE INFORMATION: I have reviewed H&P completed within last 30 days, I have examined patient prior to procedure and No changes to prior documentation PREOP DIAGNOSIS: Chronic diarrhea PRIMARY INDICATION FOR PROCEDURE: The same PLANNED PROCEDURE: Operation Date: 09/01/20 08:15 Proposed Procedures p EGD/colon [id number] R11.2 R19.7(Not Applicable) - Stepan Saldana MD s Colonoscopy(Not Applicable) - Stepan Saldana MD
--- NOTE | 2020-09-01 08:35 | W.PM.OPSUD ---
Surgery/Procedure H&P Update DATE OF PROCEDURE: September 01, 2020 DATE H&P PERFORMED: 08/13/20 H&P UPDATE INFORMATION: I have reviewed H&P completed within last 30 days, I have examined patient prior to procedure and No changes to prior documentation PREOP DIAGNOSIS: Chronic diarrhea PRIMARY INDICATION FOR PROCEDURE: The same PLANNED PROCEDURE: Operation Date: 09/01/20 08:15 Proposed Procedures p EGD/colon [id number] R11.2 R19.7(Not Applicable) - Stepan Saldana MD s Colonoscopy(Not Applicable) - Stepan Saldana MD
[2020-09-01 09:03] VITALS: BP 117/78; PULSE 66; RESP 12; TEMP 36.2; O2SAT 98
--- NOTE | 2020-09-01 09:06 | ANE.PACU2 ---
Inpatient post-anesthesia follow up: Airway intact: Yes Vital signs: Temperature 98.1 F Pulse Rate 73 Respiratory Rate 18 Blood Pressure 110/83 Pulse Oximetry 95 Oxygen Delivery Me thod Room Air Oxygen Flow Rate Fraction of Inspir ed Oxygen Hydration adequate: Yes Nausea and vomiting: No Pain level: 1 Mental status: Baseline
[2020-09-01 09:18] VITALS: BP 122/85; PULSE 71; RESP 16; TEMP 36.6; O2SAT 96
[2020-09-02 14:10] LABS: H. Pylori / CLO Test Negative
== END 2020-09-01 09:50 | disposition home or self-care (01) ==
PROVIDERS: PCP Emergency Medicine Emergency Medical Services; Visit Provider Surgery
PROC: 0DJ08ZZ Inspection of Upper Intestinal Tract, Via Natural or Artificial Opening Endoscopic (ICD-10-PCS; CPT 43235; principal; 2020-09-01 08:15)
PROC: 0DJD8ZZ Inspection of Lower Intestinal Tract, Via Natural or Artificial Opening Endoscopic (ICD-10-PCS; CPT 45378; 2020-09-01 08:15)
DX: K52.9 Noninfective gastroenteritis and colitis, unspecified (principal); K21.00 Gastro-esophageal reflux disease with esophagitis, without bleeding; K29.70 Gastritis, unspecified, without bleeding; J45.909 Unspecified asthma, uncomplicated; E78.5 Hyperlipidemia, unspecified; I10 Essential (primary) hypertension; F32.9 Major depressive disorder, single episode, unspecified
CPT/HCPCS: 36415; 43239; 45380; 80053; 83630; 84311; 84443; 85025; 85651; 86140; 87077; 87493; 87506; 88305; 96360; 96361; J2704; J7030

== ENCOUNTER → 2020-10-31 16:29 | Outpatient (BNVA) | payer OTHER, SELFPAY | PROVIDERS: PCP Emergency Medicine Emergency Medical Services; Visit Provider Internal Medicine Critical Care Medicine | DX: Z01.812 Encounter for preprocedural laboratory examination (principal); Z20.822 Contact with and (suspected) exposure to COVID-19 | CPT/HCPCS: 87635 ==

== ENCOUNTER 2020-11-03 09:00 | Outpatient (CLI) | payer OTHER, SELFPAY ==
--- NOTE | 2020-11-03 10:54 | PFTS_ITS ---
Date of Study:11/03/20 Date of Dictation: MECHANICS: Forced vital capacity (FVC) is normal. Forced expiratory volume in one second (FEV1) is normal. FEV1/FVC is normal. FLOW VOLUME LOOP: Normal. LUNG VOLUMES: Total lung capacity (TLC) is normal. Residual volume (RV) is increased. DIFFUSING CAPACITY FOR CARBON MONOXIDE: Normal. INTERPRETATION: The prebronchodilator spirometry is normal. The postbronchodilator spirometry is also normal. There is no significant postbronchodilator response. Lung volumes are consistent with mild air trapping. Gas exchange (DLCO) is normal. MTDD
== END 2020-11-03 09:01 | disposition home or self-care (01) ==
PROVIDERS: PCP Emergency Medicine Emergency Medical Services; Visit Provider Internal Medicine Critical Care Medicine
DX: J45.909 Unspecified asthma, uncomplicated (principal)
CPT/HCPCS: 94060; 94726; 94729; J7611

== ENCOUNTER → 2021-03-20 16:17 | Outpatient (BNVA) | payer OTHER, SELFPAY | PROVIDERS: PCP Emergency Medicine Emergency Medical Services; Visit Provider Nurse Practitioner | DX: R53.83 Other fatigue (principal) | CPT/HCPCS: 85025 ==

== ENCOUNTER 2021-03-21 07:15 | Emergency (ER) | payer OTHER, SELFPAY ==
[2021-03-21 07:23] VITALS: BP 141/82; PULSE 94; RESP 28; TEMP 37.2; O2SAT 97; BMI 24.7
--- NOTE | 2021-03-21 07:28 | ED_ITS ---
HPI - Chest Pain General: Chief Complaint: Chest Pain Stated Complaint: cp, sob, cough Time Seen by Provider: 03/21/21 07:18 History of Present Illness: HPI narrative: Mr. Looney is a 55-year-old gentleman with significant past medical history of hypertension, hyperlipidemia, asthma who presents emergency department due to chest discomfort associated with respiratory symptoms. Symptom onset was gradual approximately 1 week ago. He endorses increased shortness of breath, cough with productive yellow sputum, and generalized malaise. He has mild associated congestion and sore throat from coughing. He describes chest pressure throughout his entire chest without other typical cardiac features. He has not measured fever but has had night sweats. In addition he has diarrhea with mild abdominal cramping but no nausea or vomiting. Overall the course of symptoms has been persistent. Intensity is moderate. He was seen at urgent care yesterday and told that he likely has a viral syndrome however continued to feel worse so he decided to come to the e mergency department. He denies sick contacts. He is vaccinated against Covid. No other specific exacerbating or relieving factors identified. Review of Systems General: Reports: 10 or more systems reviewed and unremarkable except in HPI and below PFSH ED PFSH: Medical History Asthma Chronic diarrhea Colitis Essential (primary) hypertension Hyperlipemia Lung nodule Major depressive disorder Pericarditis PTSD (post-traumatic stress disorder) Surgical History H/O eye surgery Social History Smoking and tobacco status: never smoked Alcohol intake: current Alcohol intake frequency: few times a month Alcohol type: beer Lives independently: Yes Household members: significant other and family Marital status: Single service: Yes Current occupational status: employed Current occupation: [employer] [place] History of recent travel: No Current gender identity: Male Physical Exam Narrative: EXAM NARRATIVE: GENERAL/CONSTITUTIONAL -mildly ill-appearing. No acute distress. Eyes -no scleral icterus, no conjunctival injection ENMT - Atraumatic external nose and ears. Moist mucous membranes NECK - supple. trachea midline CARDIOVASCULAR - regular rate and rhythm. No peripheral edema RESPIRATORY -coarse to auscultation bilaterally, left greater than right. Mild tachypnea no retractions or accessory muscle use. ABDOMEN/GI - Nontender/Nondistended. MSK - Extremities without obvious deformity or tenderness to palpation SKIN - Warm, Dry NEURO - alert and appropriately oriented. Moves all extremities equally. Course ED course: - Patient was seen and evaluated by me at bedside - Patient placed on cardiac monitors, IV access obtained - Initial evaluation notable for as noted above, no oxygen requirement. Chest pain mildly reproducible with physical exam maneuvers. -Symptom treatment ordered - Labs notable for leukocytosis, and increased from yesterday. No significant metabolic abnormalities to explain patient's symptoms. Delta troponin negative. Procalcitonin negative - Imaging notable for no lobar consolidation - Upon serial reexamination after treatment the patient was somewhat improved - Based on patient history, evaluation, labs, and imaging as interpreted the most likely cause of the patient's condition is viral versus atypical infectious pneumonia. Patient is low risk by heart score and has better explanation for symptoms - The results of ED evaluation were discussed with the patient including prescriptions and/or symptomatic cares (if applicable) including appropriate and responsible use, followup plan, and return precautions. The patient verbalized understanding and felt safe for discharge. - Patient discharged in satisfactory condition. Vital Signs: Vital signs: Vital Signs Temperature 98.9 F 03/21/21 07:23 Pulse Rate 68 03/21/21 10:32 Respiratory Rate 18 03/21/21 10:32 Blood Pressure 115/57 03/21/21 10:32 Pulse Oximetry 97 03/21/21 10:32 MDM - Chest Pain Medical Records: Attestation: I reviewed the patient's medical records. Lab Data: Attestation: I reviewed the patient's lab results. Labs: Lab Results 03/21/21 03/21/21 03/21/21 07:30 07:30 07:30 WBC 16.9 10^3/uL H 10 ^3/uL (4.0-10.0) RBC 4.22 10^6/uL 10^6 /uL (4.1-5.3) Hgb 12.4 g/dL g/dL (11.7-16.6) Hct 37.6 % L % (42.0-52.0) MCV 89.1 fl fl (80-94) MCH 29.4 pg pg (28.0-34.0) MCHC 33.0 g/dL g/dL (30.0-36.0) RDW 12.2 % % (12.1-15.1) Plt Count 358 10^3/cmm 10^3 /cmm (130-400) MPV 9.6 fL fL (7.4-10.4) Neut % (Auto) 84.9 % % Lymph % (Auto) 3.6 % % Dukes % (Auto) 8.6 % % Eos % (Auto) 1.7 % % Baso % (Auto) 0.5 % % Neut # (Auto) 14.34 10^3/uL H 1 0^3/uL (1.8-7.7) Lymph # (Auto) 0.6 10^3/uL L 10^ 3/uL (0.8-4.8) Dukes # (Auto) 1.5 10^3/uL H 10^ 3/uL (0.2-0.9) Eos # (Auto) 0.3 10^3/uL 10^3/ uL (0.0-0.8) Baso # (Auto) 0.1 10^3/uL 10^3/ uL (0.0-0.1) Nucleated RBC % (a uto) 0 % % Nucleated RBCs # 0.0 /100WBC /100W BC Sodium 136 mmol/L mmol/L (136-145) Potassium 3.8 mmol/L mmol/L (3.5-5.1) Chloride 101 mmol/L mmol/L (98-107) Carbon Dioxide 22 mmol/L mmol/L (22-29) Anion Gap 16.8 (5-19) BUN 16 mg/dL mg/dL (6-20) Creatinine 0.8 mg/dL mg/dL (0.7-1.2) GFR Calculation 100.4 mL/min mL/m in (90-130) Glucose 119 mg/dL H mg/dL (65-115) Calculated Osmolal ity 284 mOsm/kg L mOs m/kg (285-295) Calcium 8.7 mg/dL mg/dL (8.5-10.5) Total Bilirubin 0.3 mg/dL mg/dL (0.15-1.2) AST 19 U/L U/L (0-40) ALT 17 U/L U/L (0-41) Alkaline Phosphata se 117 IU/L IU/L (40-130) Troponin T Baselin e 17 ng/L H ng/L (0-15) Troponin T 120 Min [place] Delta Troponin T C-Reactive Protein 117.8 mg/L H mg/L (0.0-4.9) Total Protein 6.1 g/dL L g/dL (6.6-8.7) Albumin 3.8 g/dL g/dL (3.5-5.2) Globulin 2.3 g/dL g/dL (1.3-4.6) Lipase Procalcitonin 0.06 ng/mL ng/mL (0-0.5) Influenza Type A A g Influenza Type B A g SARS-CoV-2 Ag (Rap id) 03/21/21 03/21/21 03/21/21 07:30 07:55 07:55 WBC RBC Hgb Hct MCV MCH MCHC RDW Plt Count MPV Neut % (Auto) Lymph % (Auto) Dukes % (Auto) Eos % (Auto) Baso % (Auto) Neut # (Auto) Lymph # (Auto) Dukes # (Auto) Eos # (Auto) Baso # (Auto) Nucleated RBC % (a uto) Nucleated RBCs # Sodium Potassium Chloride Carbon Dioxide Anion Gap BUN Creatinine GFR Calculation Glucose Calculated Osmolal ity Calcium Total Bilirubin AST ALT Alkaline Phosphata se Troponin T Baselin e Troponin T 120 Min [place] Delta Troponin T C-Reactive Protein Total Protein Albumin Globulin Lipase 21 U/L U/L (13-60) Procalcitonin Influenza Type A A g Negative (Negative) Influenza Type B A g Negative (Negative) SARS-CoV-2 Ag (Rap id) Negative (Negative) 03/21/21 09:28 WBC RBC Hgb Hct MCV MCH MCHC RDW Plt Count MPV Neut % (Auto) Lymph % (Auto) Dukes % (Auto) Eos % (Auto) Baso % (Auto) Neut # (Auto) Lymph # (Auto) Dukes # (Auto) Eos # (Auto) Baso # (Auto) Nucleated RBC % (a uto) Nucleated RBCs # Sodium Potassium Chloride Carbon Dioxide Anion Gap BUN Creatinine GFR Calculation Glucose Calculated Osmolal ity Calcium Total Bilirubin AST ALT Alkaline Phosphata se Troponin T Baselin e Troponin T 120 Min [place] 12.88 ng/L ng/L (0-15) Delta Troponin T -4.12 ABS# L ABS# (0-10) C-Reactive Protein Total Protein Albumin Globulin Lipase Procalcitonin Influenza Type A A g Influenza Type B A g SARS-CoV-2 Ag (Rap id) EKG Data^: EKG 1: Attestation: I personally reviewed and interpreted this EKG as follows: EKG interpretation date: 03/21/21 EKG interpretation time: 07:26 Interpretation: Twelve-lead EKG shows an slightly irregular rhythm at a rate of 89. MT interval 186, QRS duration 92, QTc 400. Normal axis. Interpretation: Sinus rhythm. Ectopy. EKG 2: Attestation: I personally reviewed and interpreted this EKG as follows: EKG interpretation date: 03/21/21 EKG interpretation time: 09:30 Interpretation: Twelve-lead EKG shows a regular rhythm at a rate of 70. MT interval 200, QRS duration 81, QTc 399. Normal axis. Interpretation: Sinus rhythm. Discharge Plan Discharge Patient Disposition: Home Clinical Impression: Chest pain, Pneumonia Condition: Stable Prescriptions: New prednisone 20 mg tablet 40 mg PO DAILY 5 Days Qty: 10 RF: 0 Augmentin 875-125 mg tablet 1 tab PO BID Qty: 14 RF: 0 No Action Breo Ellipta 100-25 mcg/dose blister with device 1 inh inhalation DAILY 30 Days Qty: 60 RF: 2 venlafaxine [Effexor XR] 37.5 mg capsule,extended release 24hr 37.5 mg PO DAILY RF: 0 albuterol sulfate [ProAir HFA] 90 mcg/actuation HFA aerosol inhaler 2 puff INHALATION Q6H PRN (Reason: Shortness Of Breath) RF: 0 Complete Multivitamin Tablet 1 tab PO DAILY RF: 0 trazodone 150 mg tablet 300 mg PO BEDTIME RF: 0 Discharge Orders: Discharge ED (Routine); Ordered 03/21/21 Ordered By: Niko Noble Referrals: Christiano Whitt DO [Primary Care Provider] - Discharge Diet: Usual diet Discharge Activity: Resume usual activity Patient Instructions: Chest Pain (ED), Bacterial Pneumonia (ED), Wheezing (ED) Activity Restrictions/Additional Instructions: Thank you for visiting the emergency department. You were seen and evaluated for respiratory symptoms. The exact cause of your symptoms is unclear though is likely related to pneumonia. And additionally you have a component of wheezing which is likely secondary to your asthma. You will be given prescriptions for treatment of both. I would expect in the next few days that your symptoms improve. Please follow-up with your primary care provider. Please return to the emergency department for worsening symptoms or anything else that you are concerned about and feel needs emergency department evaluation. Stand Alone Forms: Work/School Release Coding Level of Care Code ED Sheet Finisher for Tahir Gloria
--- NOTE | 2021-03-21 07:34 | XRR_ITS ---
PROCEDURE INFORMATION: Exam: XR Chest Exam date and time: 03/21/2021 7:34 AM Age: 55 years old Clinical indication: Cough and shortness of breath; Additional info: Cough, SOB TECHNIQUE: Imaging protocol: XR of the chest. Views: 1 view. Total images: 1 COMPARISON: CR XR chest 1V portable [id number] 02/17/2020 7:23 AM FINDINGS: Lungs: Unremarkable. No consolidation. Pleural spaces: Unremarkable. No pleural effusion. No pneumothorax. Heart/Mediastinum: Unremarkable. No cardiomegaly. Bones/joints: Unremarkable. XR/XR chest 1V portable [id number] IMPRESSION: No acute findings. Radiation Dose CTDIVOL = (mGy): DLP = (mGy-cm)
--- NOTE | 2021-03-21 07:35 | ECG_ITS ---
[facility] Test Date: 2021-03-21 Pat Name: Charles Looney Department: Room: Gender: Male Manager Filter: : 1965 Requested By: Niko Noble Order Number: [id number] Mimi MD: Daniel Ochoa M.D. Measurements Intervals [place] Rate: 89 P: 65 NC: 186 QRS: 87 QRSD: 92 T: 32 QT: 353 QTc: 432 Interpretive Statements SINUS RHYTHM WITH OCCASIONAL VENTRICULAR PREMATURE COMPLEXES WITH OCCASIONAL SUPRAVENTRICULAR PREMATURE COMPLEXES Compared to ECG 02/17/2020 07:30:14 Ventricular premature complex(es) now present Indeterminate axis no longer present Electronically Signed On 03-22-2021 21:57:53 SURGERY AID by Daniel Ochoa M.D. [id number] f
[2021-03-21] MEDS: sodium chloride 0.9% 1,000 ML 999 ML IV (07:52)
[2021-03-21 07:53] LABS: Basophils # 0.1 10^3/uL (0.0-0.1); Basophils % 0.5 %; Eosinophils # 0.3 10^3/uL (0.0-0.8); Eosinophils % 1.7 %; Hematocrit 37.6 % (42.0-52.0); Hemoglobin 12.4 g/dL (11.7-16.6); Lymphocytes # 0.6 10^3/uL (0.8-4.8); Lymphocytes % 3.6 %; Mean Corpuscular Hemoglobin 29.4 pg (28.0-34.0); Mean Corpuscular Volume 89.1 fl (80-94); Mean Platelet Volume 9.6 fL (7.4-10.4); Monocytes # 1.5 10^3/uL (0.2-0.9); Monocytes % 8.6 %; Neutrophils # 14.34 10^3/uL (1.8-7.7); Neutrophils % 84.9 %; Nucleated Red Blood Cells % 0 %; Platelet Count 358 10^3/cmm (130-400); Red Blood Count 4.22 10^6/uL (4.1-5.3); Red Cell Distribution Width 12.2 % (12.1-15.1); White Blood Count 16.9 10^3/uL (4.0-10.0)
[2021-03-21 07:55] VITALS: BP 126/76; PULSE 87; RESP 18; O2SAT 98
[2021-03-21 07:57] LABS: Troponin(5th) Baseline 17 ng/L (0-15)
[2021-03-21 07:58] LABS: Alanine Aminotransferase 17 U/L (0-41); Albumin Level 3.8 g/dL (3.5-5.2); Alkaline Phosphatase 117 IU/L (40-130); Anion Gap 16.8 (5-19); Aspartate Amino Transferase 19 U/L (0-40); Blood Urea Nitrogen 16 mg/dL (6-20); C Reactive Protein 117.8 mg/L (0.0-4.9); Calcium 8.7 mg/dL (8.5-10.5); Carbon Dioxide 22 mmol/L (22-29); Chloride 101 mmol/L (98-107); Globulin 2.3 g/dL (1.3-4.6); Glomerular Filtration Rate 100.4 mL/min (90-130); Glucose 119 mg/dL (65-115); Osmolality Calculated 284 mOsm/kg (285-295); Potassium 3.8 mmol/L (3.5-5.1); Sodium 136 mmol/L (136-145); Total Bilirubin 0.3 mg/dL (0.15-1.2); Total Protein 6.1 g/dL (6.6-8.7)
[2021-03-21 08:00] VITALS: PULSE 80; RESP 18; O2SAT 96
[2021-03-21 08:05] LABS: Procalcitonin 0.06 ng/mL (0-0.5)
[2021-03-21] MEDS: ipratropium-albuterol 3 mL Neb INHALATION (08:24)
[2021-03-21 08:29] LABS: Influenza A by IFA Negative (Negative); Influenza B by IFA Negative (Negative); SARS Covid-2 Antigen Negative (Negative)
[2021-03-21 08:43] VITALS: BP 127/68; PULSE 78; RESP 20; O2SAT 97
[2021-03-21] MEDS: lidocaine 2% viscous 15 ML, aluminum-mag hydrox-simethicon 30 ML, sucralfate oral liq 1 GM PO (08:59)
[2021-03-21] MEDS: ketorolac 30 mg/mL INJ 15 MG IVP (09:00)
[2021-03-21 09:33] VITALS: BP 119/67; PULSE 72; RESP 17; O2SAT 97
[2021-03-21 09:34] LABS: Lipase 21 U/L (13-60)
--- NOTE | 2021-03-21 09:35 | ECG_ITS ---
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 Measurements Intervals [place] Rate: 70 P: 62 [place]: 200 QRS: 74 QRSD: 81 T: 32 QT: 379 QTc: 409 Interpretive Statements SINUS RHYTHM Compared to ECG 03/21/2021 07:24:21 Ventricular premature complex(es) no longer present Electronically Signed On 03-22-2021 22:00:19 ELECTRONIC TESTER by Daniel Ochoa M.D. [id number]
[2021-03-21 09:56] LABS: Troponin 5 2HR 12.88 ng/L (0-15)
[2021-03-21 10:14] LABS: Troponin 5 2HR Delta -4.12 ABS# (0-10)
[2021-03-21 10:32] VITALS: BP 115/57; PULSE 68; RESP 18; O2SAT 97
--- NOTE | 2021-03-23 12:27 | DCPLANNER ---
automotive internet sales manager had message to schedule a follow up appointment for patient with [facility]. automotive internet sales manager called [facility], spoke with Atiya, gave clinic patients information. A follow up appointment was scheduled for Tuesday, April 15, 2021 at 3;[address] Oswald. automotive internet sales manager called patient and gave patient the appointment information. Patient has [facility] insurance, patient case coordinator emailed patients information to August with [facility], so that the authorization process could be started.
--- NOTE | 2021-05-13 14:39 | DCPLANNER ---
Patient had a follow up appointment scheduled for 04.15.21 with [facility] - patient did attend appointment.
== END 2021-03-21 10:33 | disposition home or self-care (01) ==
PROVIDERS: Emergency Provider Emergency Medicine; PCP Emergency Medicine Emergency Medical Services
DX: J18.9 Pneumonia, unspecified organism (principal); R07.9 Chest pain, unspecified; I10 Essential (primary) hypertension; E78.5 Hyperlipidemia, unspecified; Z20.822 Contact with and (suspected) exposure to COVID-19
CPT/HCPCS: 71045; 80053; 83690; 84145; 84484; 85025; 86140; 87426; 87804; 93005; 94640; 96361; 96374; 99284; J1885; J7030

== ENCOUNTER 2021-04-24 12:37 | Inpatient (IN) | payer OTHER, SELFPAY ==
[2021-04-24] VITALS (11 sets, daily range): BP systolic 105–133; BP diastolic 63–95; PULSE 86–170; RESP 16–42; TEMP 36.7–37.2; O2SAT 91–96; BMI 26.1
--- NOTE | 2021-04-24 12:42 | PC.NURSE ---
PT TAKEN DIRECTLY TO ROOM 11.
--- NOTE | 2021-04-24 12:50 | ECG_ITS ---
[facility] Test Date: 2021-04-24 Pat Name: Charles Looney Department: Room: Gender: Male Clothing Consultant: : 1965 Requested By: Christ Mendoza Order Number: [id number] Mimi MD: Daniel Ochoa M.D. Measurements Intervals [place] Rate: 171 P: AL: QRS: 109 QRSD: 77 T: 38 QT: 244 QTc: 413 Interpretive Statements ATRIAL FIBRILLATION WITH RAPID VENTRICULAR RESPONSE POSSIBLE RIGHT VENTRICULAR HYPERTROPHY [SOME/ALL OF: PROMINENT R IN V1, LATE TRANSITION, RAD, FERMIN, SSS] CRITICAL TEST RESULT Compared to ECG 03/21/2021 09:29:12 Atrial abnormality now present Sinus rhythm no longer present Electronically Signed On 04-25-2021 7:37:33 BICYCLE I ASSEMBLER by Daniel Ochoa M.D. [id number]
--- NOTE | 2021-04-24 12:50 | XR_ITS ---
WS: [id number] Exam: XR chest 1V portable [id number] Date/Time of Exam: 04/24/2021 1:03 PM Reason For Exam: chest pain Comparison 03/21/2021. Left lower lobe infiltrate in the left pleural effusion noted. Right lung is clear. Normal cardiomedi astinal silhouette. Bony structures are intact. Monitoring leads superimpose the chest. XR/XR chest 1V portable [id number] IMPRESSION: 1. Left lower lobe infiltrate suggesting pneumonia. Left basal pleural effusion .
[2021-04-24] MEDS: aspirin 81 mg Chew Tablet 324 MG PO (13:02)
[2021-04-24 13:08] LABS: Hematocrit 42.4 % (42.0-52.0); Hemoglobin 13.8 g/dL (11.7-16.6); Mean Corpuscular HGB Conc 32.5 g/dL (30.0-36.0); Mean Corpuscular Hemoglobin 28.8 pg (28.0-34.0); Mean Corpuscular Volume 88.3 fl (80-94); Mean Platelet Volume 9.7 fL (7.4-10.4); Platelet Count 352 10^3/cmm (130-400); Red Cell Distribution Width 13.6 % (12.1-15.1)
[2021-04-24 13:21] LABS: INR 1.25 (0.8-1.2)
[2021-04-24 13:22] LABS: Partial Thromboplastin Time 32.3 SECONDS (23.9-36.7)
[2021-04-24 13:29] LABS: Troponin(5th) Baseline 26 ng/L (0-15)
[2021-04-24 13:37] LABS: Alanine Aminotransferase 18 U/L (0-41); Albumin Level 4.2 g/dL (3.5-5.2); Alkaline Phosphatase 97 IU/L (40-130); Anion Gap 18.6 (5-19); Aspartate Amino Transferase 21 U/L (0-40); Blood Urea Nitrogen 20 mg/dL (6-20); Calcium 8.3 mg/dL (8.5-10.5); Carbon Dioxide 24 mmol/L (22-29); Chloride 95 mmol/L (98-107); Creatine Phosphokinase 256 U/L (39-308); Globulin 1.8 g/dL (1.3-4.6); Glomerular Filtration Rate 69.5 mL/min (90-130); Glucose 182 mg/dL (65-115); NT Pro B Type Natriuretic Pept 2582 pg/mL (0-125); Osmolality Calculated 285 mOsm/kg (285-295); Potassium 3.6 mmol/L (3.5-5.1); Sodium 134 mmol/L (136-145); Total Bilirubin 0.8 mg/dL (0.15-1.2)
[2021-04-24 13:42] LABS: White Blood Count 39.6 10^3/uL (4.0-10.0)
[2021-04-24 13:44] LABS: Absolute Neutrophil 37.6 10^3/cmm (1.4-6.5); Absolute Segmented Neutrophil 36.8 10/cmm (1.6-7.1); Band Neutrophils Absolute 0.8 10^3/cmm (0.0-1.2); Eosinophils 0 %; Lymphocytes 0 %; Lymphocytes Absolute 0.4 10^3/cmm (1.2-3.4); Monocytes Absolute 1.6 10^3/cmm (0.1-0.6); Platelet Estimate Normal (Normal); Segmented Neutrophils 93 %; Total Cells Counted 100 (0-100)
--- NOTE | 2021-04-24 13:56 | ED_ITS ---
HPI - Chest Pain General: Chief Complaint: Chest Pain Stated Complaint: cp Time Seen by Provider: 04/24/21 12:50 History of Present Illness: HPI narrative: 55-year-old male presents emergency room complaining of chest discomfort (worse with deep inspiration was (and rapid heart rate and palpitations. This is evidently been going on for some time. He has been seen for previously was not any any arrhythmias at the time. Today represents his heart rate is in the 170 and 80 range and irregularly irregular. He has never had an episode quite this intense. Previous evaluations for similar symptoms but less intense were negative. This current episode is been ongoing for several days. Patient denies any anosmia or diarrhea. MD complaint: chest discomfort Onset (ago): day(s) Timing of current episode: episodic and increasing Onset: during rest Pain location: substernal and left chest Pain radiation: right arm and left arm Quality: tightness and aching Relieving factors: nothing Exacerbating factors: nothing Associated symptoms: Reports diaphoresis and palpitations; Deny abdominal pain, dyspnea, fever(s), leg edema or sense of impending doom Treatment prior to arrival: none Review of Systems Const: Reports: diaphoresis; Denies: fever(s) ENMT: Denies: throat pain, ear or mastoid pain, nasal discharge or nasal congestion Card: Reports: palpitations Resp: Denies: dyspnea GI: Denies: abdominal pain or diarrhea : Denies: flank pain, dysuria, urinary frequency or urinary urgency Skin/Breast: Denies: rash or pruritus PFSH ED PFSH: Medical History Asthma Chronic diarrhea Colitis Essential (primary) hypertension Hyperlipemia Lung nodule Major depressive disorder Pericarditis PTSD (post-traumatic stress disorder) Surgical History H/O eye surgery Family History Father CAD (coronary artery disease), Onset Age: 59 Sister Arrhythmia Family/Other CAD (coronary artery disease) Social History (Updated 04/24/21 @ 17:52 by Dnoald Miguel MD) Smoking and tobacco status: never smoked Alcohol intake: current Alcohol intake frequency: few times a month Alcohol type: beer Substance/Drug Use: never Lives independently: Yes Household members: significant other and family Marital status: Single service: Yes Current occupational status: employed Current occupation: [employer] [place] History of recent travel: No Current gender identity: Male Physical Exam Const: COMMON NORMALS: no acute distress GENERAL APPEARANCE: cooperative and comfortable ORIENTATION/CONSCIOUSNESS: Yes awake, Yes oriented to person, Yes oriented to place and Yes oriented to time HENMT: COMMON NORMALS: normocephalic and atraumatic HEAD & SCALP: normocephalic and atraumatic Neck/C-Spine: COMMON NORMALS: full ROM, no lymphadenopathy, supple and no JVD Lymph: LYMPHATIC: no lymphadenopathy noted and no lymphedema noted Resp: COMMON NORMALS: normal respiratory effort, No retractions, No use of accessory muscles and clear to auscultation bilaterally AUSCULTATION: clear to auscultation bilaterally Cardio: COMMON NORMALS: no JVD and No murmurs present (Cardio) RATE: tachycardic RHYTHM: abnormal rhythm irregularly irregular GI: COMMON NORMALS: Soft to palpation and No hepatosplenomegaly present AUSCULTATION: Yes normoactive bowel sounds PALPATION: Yes Soft to palpation, No Tenderness to palpation present (GI), No Guarding due to palpation present (GI) and Yes No hepatosplenomegaly present Extremity: COMMON NORMALS: normal to inspection, capillary refill normal, no clubbing, cyanosis or edema, no calf tenderness and no pedal edema Neuro: SENSORIUM/ORIENTATION: Yes oriented to person, Yes oriented to place and Yes oriented to time Skin: COMMON NORMALS: no rashes or lesions noted GENERAL SKIN EXAM: no rashes or lesions noted Course Vital Signs: Vital signs: Vital Signs Temperature 98.9 F 04/24/21 19:11 Pulse Rate 84 04/25/21 08:00 Respiratory Rate 20 H 04/25/21 08:00 Blood Pressure 115/87 04/25/21 08:00 Pulse Oximetry 97 04/25/21 08:00 MDM - Chest Pain MDM Narrative: Medical decision making narrative: New onset A. fib with RVR. Initially responded somewhat to Cardizem with digoxin resolved. Patient also has a left lower lobe pneumonia leukocytosis. Antibiotics started the cultures done we added digoxin that seem to have improved with rate continue on a Cardizem drip at this time. He does have some chest discomfort but it seems more pleuritic waiting troponins discussed with hospitalist orders written Lab Data: Labs: Lab Results 04/24/21 04/24/21 04/24/21 12:50 12:50 12:50 WBC 39.6 10^3/uL H* 1 0^3/uL (4.0-10.0) RBC 4.80 10^6/uL 10^6 /uL (4.1-5.3) Hgb 13.8 g/dL g/dL (11.7-16.6) Hct 42.4 % % (42.0-52.0) MCV 88.3 fl fl (80-94) MCH 28.8 pg pg (28.0-34.0) MCHC 32.5 g/dL g/dL (30.0-36.0) RDW 13.6 % % (12.1-15.1) Plt Count 352 10^3/cmm 10^3 /cmm (130-400) MPV 9.7 fL fL (7.4-10.4) Neut % (Auto) Patient Accounting Representative Lymph % (Auto) Patient Accounting Representative [place] % (Auto) Patient Accounting Representative Eos % (Auto) Patient Accounting Representative Baso % (Auto) Patient Accounting Representative Neut # (Auto) Patient Accounting Representative Lymph # (Auto) Patient Accounting Representative [place] # (Auto) Patient Accounting Representative Eos # (Auto) Patient Accounting Representative Baso # (Auto) Patient Accounting Representative Nucleated RBC % (a uto) Patient Accounting Representative Total Counted 100 (0-100) Atypical Lymphs % 1.0 % % (0-5) Absolute Neutrophi ls 37.6 10^3/cmm H 1 0^3/cmm (1.4-6.5) Segmented Neutroph ils 93 % % Abs Segm Neuts (Ma n) 36.8 10/cmm H 10/ cmm (1.6-7.1) Band Neutrophils 2.0 % % Abs Band Neuts (Ma n) 0.8 10^3/cmm 10^3 /cmm (0.0-1.2) Absolute Lymphocyt es 0.4 10^3/cmm L 10 ^3/cmm (1.2-3.4) Lymphocytes (Manua l) 0 % % Monocytes (Manual) 4.0 % % Absolute Monocytes 1.6 10^3/cmm H 10 ^3/cmm (0.1-0.6) Eosinophils (Manua l) 0 % % Absolute Eosinophi ls 0.0 10^3/cmm 10^3 /cmm (0.0-0.7) Basophils (Manual) 0.0 % % Absolute Basophils 0.0 10^3/cmm 10^3 /cmm (0.0-0.2) Nucleated RBCs # Patient Accounting Representative Platelet Estimate Normal (Normal) PT 16.10 SECONDS H S ECONDS (12.1-14.9) INR 1.25 H (0.8-1.2) APTT 32.3 SECONDS SECO NDS (23.9-36.7) Sodium 134 mmol/L L mmol /L (136-145) Potassium 3.6 mmol/L mmol/L (3.5-5.1) Chloride 95 mmol/L L mmol/ L (98-107) Carbon Dioxide 24 mmol/L mmol/L (22-29) Anion Gap 18.6 (5-19) BUN 20 mg/dL mg/dL (6-20) Creatinine 1.1 mg/dL mg/dL (0.7-1.2) GFR Calculation 69.5 mL/min L mL/ min (90-130) Glucose 182 mg/dL H mg/dL (65-115) Calculated Osmolal ity 285 mOsm/kg mOsm/ kg (285-295) Calcium 8.3 mg/dL L mg/dL (8.5-10.5) Total Bilirubin 0.8 mg/dL mg/dL (0.15-1.2) AST 21 U/L U/L (0-40) ALT 18 U/L U/L (0-41) Alkaline Phosphata se 97 IU/L IU/L (40-130) Creatine Kinase 256 U/L U/L (39-308) Troponin T Baselin e Troponin T 120 Min [place] Delta Troponin T NT-Pro-B Natriuret Pep 2582 pg/mL H pg/m L (0-125) Total Protein 6.0 g/dL L g/dL (6.6-8.7) Albumin 4.2 g/dL g/dL (3.5-5.2) Globulin 1.8 g/dL g/dL (1.3-4.6) 04/24/21 04/24/21 12:50 15:24 WBC RBC Hgb Hct MCV MCH MCHC RDW Plt Count MPV Neut % (Auto) Lymph % (Auto) [place] % (Auto) Eos % (Auto) Baso % (Auto) Neut # (Auto) Lymph # (Auto) [place] # (Auto) Eos # (Auto) Baso # (Auto) Nucleated RBC % (a uto) Total Counted Atypical Lymphs % Absolute Neutrophi ls Segmented Neutroph ils Abs Segm Neuts (Ma n) Band Neutrophils Abs Band Neuts (Ma n) Absolute Lymphocyt es Lymphocytes (Manua l) Monocytes (Manual) Absolute Monocytes Eosinophils (Manua l) Absolute Eosinophi ls Basophils (Manual) Absolute Basophils Nucleated RBCs # Platelet Estimate PT INR APTT Sodium Potassium Chloride Carbon Dioxide Anion Gap BUN Creatinine GFR Calculation Glucose Calculated Osmolal ity Calcium Total Bilirubin AST ALT Alkaline Phosphata se Creatine Kinase Troponin T Baselin e 26 ng/L H ng/L (0-15) Troponin T 120 Min [place] 20.74 ng/L H ng/L (0-15) Delta Troponin T -5.26 ABS# L ABS# (0-10) NT-Pro-B Natriuret Pep Total Protein Albumin Globulin Discharge Plan Discharge Patient Disposition: Admitted As Inpatient Admit Provider: Donald Miguel Coding Level of Care Code ED Supervisor Vendor Quality for Chg Fwd Exam Comprehensive
[2021-04-24] MEDS: digoxin 250 mcg/ml INJ 2 mL 500 MCG IVP (14:10)
[2021-04-24] MEDS: sodium chloride 0.9% 500 ML 999 ML IV (14:11)
--- NOTE | 2021-04-24 14:50 | ECG_ITS ---
[facility] Test Date: 2021-04-24 Pat Name: Charles Looney Department: Room: Gender: Male Photonics Engineering Technician: : 1965 Requested By: Christ Mendoza Order Number: [id number] Mimi MD: Daniel Ochoa M.D. Measurements Intervals [place] Rate: 105 P: ND: QRS: 12 QRSD: 97 T: 30 QT: 341 QTc: 452 Interpretive Statements ATRIAL FIBRILLATION WITH RAPID VENTRICULAR RESPONSE ABNORMAL RHYTHM ECG Compared to ECG 04/24/2021 12:43:04 Atrial abnormality no longer present Electronically Signed On 04-25-2021 7:45:25 RETAIL LOSS PREVENTION SPECIALIST by Daniel Ochoa M.D. [id number]
[2021-04-24] MEDS: levofloxacin-dextrose 5 % 750 MG/150 ML PREMIX 100 MG IV (15:12)
[2021-04-24 15:50] LABS: Troponin 5 2HR 20.74 ng/L (0-15)
[2021-04-24 15:52] LABS: Troponin 5 2HR Delta -5.26 ABS# (0-10)
--- NOTE | 2021-04-24 17:36 | PC.NURSE ---
This Rn attempted to call report, advised by floor physician office secretary there are no nurses available to take report. Adelia advised
--- NOTE | 2021-04-24 17:47 | PM.HP ---
Providers/Chief Complaint Admitting Physician: Donald Miguel Primary Care Provider: Christiano Whitt DO Chief Complaint: cp History of Present Illness Pleasant 55-year-old gentleman with history of asthma, remote history of atrial fibrillation, remote history of pericarditis, has been dealing with left chest pain with inspiration, cough, feeling congestion in his chest, but unable to bring up phlegm. Also reports headache, and diarrhea. Denies any immobilization, in fact has been working up until today when he finally told his employer he had to go to the hospital. Denies any lower extremity edema. Denies hemoptysis. History of VTE. In ER was noted to be in atrial fibrillation with RVR presentation, heart rates into the 160s-170s. Troponin 26-20.74. NT proBNP 2582. Chest x-ray with left lower lobe infiltrate suggestive of pneumonia. Left basal pleural effusion. Noted leukocytosis 39.6. Review of Systems Const: Reports: malaise; Denies: fever(s), chills or body aches Eyes: Denies: change in vision or eye redness ENMT: Denies: throat pain, oral sores or ear or mastoid pain Card: Reports: chest pain; Denies: edema, pre-syncope or dyspnea on exertion Resp: Reports: dyspnea, non-productive cough, pain on inspiration and chest congestion; Denies: hemoptysis GI: Denies: abdominal pain, nausea, vomiting, diarrhea, constipation, hematochezia or melena : Denies: flank pain, difficulty urinating, urinary frequency or hematuria Musc: Denies: back pain, joint swelling or joint redness Skin/Breast: Denies: rash, sores or new lesions Neuro: Denies: headache(s), numbness in extremities, weakness in extremities, dizziness, confusion or seizure-like activity Endo: Denies: polyuria or polydipsia Shady/Lymph: Denies: easy bleeding or purpura All/Imm: Denies: urticaria, throat swelling or tongue swelling Medications/Allergies Home Medications Medication Instructions Recorded Confirmed Last Taken Type albuterol sulfate 90 mcg/actuation 2 puff INHALATION Q6H PRN 08/08/19 04/24/21 Unknown History aerosol inhaler multivitamin,gc-rekc-mjcrgnux 1 tab PO DAILY 08/08/19 04/24/21 04/23/21 History trazodone 150 mg tablet 300 mg PO BEDTIME tab 08/08/19 04/24/21 04/23/21 History fluticasone furoate 100 1 inh INHALATION DAILY 30 Days #60 07/07/20 04/24/21 08/31/20 Rx mcg-vilanterol 25 mcg/dose ea inhalation powder venlafaxine 37.5 mg 37.5 mg PO DAILY 03/20/21 04/24/21 04/23/21 History capsule,extended release 24 hr Allergies Allergy/AdvReac Type Severity Reaction Status Date / Time No Known Allergies Allergy Verified 04/15/21 15:31 PFSH Acute PFSH: Medical History Asthma Chronic diarrhea Colitis Essential (primary) hypertension Hyperlipemia Lung nodule Major depressive disorder Pericarditis PTSD (post-traumatic stress disorder) Surgical History H/O eye surgery Family History Father CAD (coronary artery disease), Onset Age: 59 Sister Arrhythmia Family/Other CAD (coronary artery disease) Social History (Updated 04/24/21 @ 17:52 by Donald Miguel MD) Smoking and tobacco status: never smoked Alcohol intake: current Alcohol intake frequency: few times a month Alcohol type: beer Substance/Drug Use: never Lives independently: Yes Household members: significant other and family Marital status: Single service: Yes Current occupational status: employed Current occupation: [employer] [place] History of recent travel: No Current gender identity: Male Vitals/I&O/Wt Last Vital Signs Temp 98.1 F 04/24/21 12:55 Pulse 88 04/24/21 17:33 Resp 31 H 04/24/21 17:33 BP 113/73 04/24/21 17:33 Pulse Ox 96 04/24/21 17:33 Weight last 48 hrs Weight 78.018 kg Physical Exam Const: COMMON NORMALS: no acute distress, patient oriented x3 and alert GENERAL APPEARANCE: cooperative; not comfortable ORIENTATION/CONSCIOUSNESS: Yes awake HENMT: COMMON NORMALS: oropharynx normal Neck/C-Spine: COMMON NORMALS: no JVD Resp: COMMON NORMALS: normal respiratory effort and clear to auscultation bilaterally AUSCULTATION: clear to auscultation bilaterally, wheezes left lower and diminished lung sounds on the left in the lower lung kumari Cardio: COMMON NORMALS: no JVD, regular rhythm, S1 normal heart sound present, S2 normal heart sound present and No murmurs present (Cardio) RHYTHM: abnormal rhythm irregularly irregular HEART SOUNDS: S1 normal heart sound present and S2 normal heart sound present GI: COMMON NORMALS: Normal to inspection, nondistended, normoactive bowel sounds present, Soft to palpation and non-tender PALPATION: Yes Soft to palpation Extremity: COMMON NORMALS: no joint enlargement and no pedal edema Neuro: COMMON NORMALS: patient oriented x3 and moves all extremities Skin: COMMON NORMALS: no rashes or lesions noted GENERAL SKIN EXAM: no rashes or lesions noted Data : 04/24/21 12:50 04/24/21 12:50 Micro: Microbiology 04/24/21 16:06 Blood Culture - Preliminary Blood SPECIMEN COLLECTED 04/24/21 16:06 Blood Culture - Preliminary Blood SPECIMEN COLLECTED A&P Assessment and plan (1) Pneumonia: Left lower lobe pneumonia. Continue to biotic coverage with Levaquin, vancomycin. Collect sputum cultures, bacterial antigens including Legionella, given also headache, diarrhea, check COVID-19 PCR. Oxygen support. Status: Acute (2) Leukocytosis: Has a leukocytosis, 39.6. Possibly leukemoid reaction secondary to infection. Will request peripheral smear. Will also check C. difficile given diarrhea. Status: Acute (3) Paroxysmal atrial fibrillation with RVR: With Cardizem drip heart rates improving down to low 100s. Continue drip. Start p.o. Cardizem. Monitor on telemetry. Treat pneumonia. Check magnesium, TSH. At this time chest pain very clearly pleuritic, not suggestive of pericarditis, but will obtain CRP, ESR, monitor for any changes in symptoms. Complete troponin EKG series. Status: Acute Additional A&P Information Hx asthma Hx pericarditis HTN PTSD Attestations Medical Necessity Statement*: Admission of over 2 midnights is anticipated for assessment management of pneumonia with atrial fibrillation with RVR, severe leukocytosis, possible leukemoid reaction, in a gentleman with underlying asthma. Coding Level of Care Code Acute Physiotherapy Practice Manager for [facility] Fwd Diagnoses Pneumonia J18.9 Leukocytosis D72.829 Paroxysmal atrial fibrillation with RVR I48.0
--- NOTE | 2021-04-24 18:47 | PC.NURSE ---
Report called ot zaki, given to MAURY Bacon.
--- NOTE | 2021-04-24 18:50 | ECG_ITS ---
[facility] Test Date: 2021-04-24 Pat Name: Charles Looney Department: Room: 102 Gender: Male Preparer Samples And Repairs: : 1965 Requested By: Christ Mendoza Order Number: [id number] Mimi MD: Daniel Ochoa M.D. Measurements Intervals [place] Rate: 103 P: SC: QRS: 0 QRSD: 86 T: 28 QT: 321 QTc: 422 Interpretive Statements ATRIAL FIBRILLATION WITH RAPID VENTRICULAR RESPONSE Compared to ECG 04/24/2021 14:52:45 No significant changes Electronically Signed On 04-25-2021 7:44:09 CONSTRUCTION MANAGEMENT ASSISTANT by Daniel Ochoa M.D. [email or web address] medical [id number]
--- NOTE | 2021-04-24 19:16 | PC.NURSE ---
this nurse arrived on shift and escorted pt to [facility] after last ekg was performed by chicho davila
[2021-04-24 19:21] LABS: Troponin 5 6HR 18.52 ng/L (0-15)
[2021-04-24 19:22] LABS: Troponin 5 6HR Delta -7.48 ng/L (0-12)
[2021-04-24 19:26] LABS: LAB Peripheral Smear Sent for Review
[2021-04-24 20:03] LABS: Magnesium 1.8 mg/dL (1.7-2.3)
[2021-04-24 20:16] LABS: C Reactive Protein 548.2 mg/L (0.0-4.9)
[2021-04-24] MEDS: enoxaparin 40 mg/0.4 mL Syringe SUBCUT (20:57)
[2021-04-24] MEDS: sodium chloride 0.9% 1,000 ML 100 ML IV (20:58)
[2021-04-24] MEDS: vancomycin 1,500 MG/300 ML PIGGYBACK 200 MG IV (20:59)
[2021-04-24] MEDS: trazodone 150 mg Tablet 300 MG PO (21:00)
[2021-04-24] MEDS: dilTIAZem 60 mg Tablet PO (21:00)
[2021-04-24] MEDS: budesonide 0.5 mg/2 mL Neb INHALATION (21:27)
[2021-04-25] VITALS (14 sets, daily range): BP systolic 115–123; BP diastolic 70–87; PULSE 79–105; RESP 18–21; TEMP 36.7–37.2; O2SAT 93–97
--- NOTE | 2021-04-25 02:23 | PC.NURSE ---
Patient heartrate now 71. Turned off nitro gtt. Will monitor
[2021-04-25 05:21] LABS: Basophils # 0.1 10^3/uL (0.0-0.1); Basophils % 0.2 %; Eosinophils % 0.2 %; Hematocrit 38.6 % (42.0-52.0); Hemoglobin 12.7 g/dL (11.7-16.6); Lymphocytes # 0.5 10^3/uL (0.8-4.8); Lymphocytes % 2.1 %; Mean Corpuscular HGB Conc 32.9 g/dL (30.0-36.0); Mean Corpuscular Hemoglobin 28.8 pg (28.0-34.0); Mean Corpuscular Volume 87.5 fl (80-94); Mean Platelet Volume 9.7 fL (7.4-10.4); Monocytes # 1.2 10^3/uL (0.2-0.9); Monocytes % 5.2 %; Neutrophils # 21.23 10^3/uL (1.8-7.7); Neutrophils % 91.3 %; Nucleated Red Blood Cells % 0 %; Platelet Count 257 10^3/cmm (130-400); Red Blood Count 4.41 10^6/uL (4.1-5.3); Red Cell Distribution Width 13.7 % (12.1-15.1); White Blood Count 23.3 10^3/uL (4.0-10.0)
[2021-04-25 05:42] LABS: Alanine Aminotransferase 15 U/L (0-41); Albumin Level 3.6 g/dL (3.5-5.2); Alkaline Phosphatase 94 IU/L (40-130); Anion Gap 16.7 (5-19); Aspartate Amino Transferase 14 U/L (0-40); Blood Urea Nitrogen 17 mg/dL (6-20); Calcium 8.5 mg/dL (8.5-10.5); Carbon Dioxide 26 mmol/L (22-29); Chloride 97 mmol/L (98-107); Creatinine Clr Calc Pharmacy 106.6148; Globulin 2.8 g/dL (1.3-4.6); Glomerular Filtration Rate 100.4 mL/min (90-130); Glucose 152 mg/dL (65-115); Osmolality Calculated 287 mOsm/kg (285-295); Potassium 3.7 mmol/L (3.5-5.1); Sodium 136 mmol/L (136-145); Total Bilirubin 0.6 mg/dL (0.15-1.2); Total Protein 6.4 g/dL (6.6-8.7)
[2021-04-25] MEDS: sodium chloride 0.9% 1,000 ML 100 ML IV ×2 (05:52→16:18)
--- NOTE | 2021-04-25 06:06 | PC.NURSE ---
Frequent safety and comfort rounds continue. Orders and/or nursing care completed as indicated. Patient monitored for response to intervention and treatment(s). Education provided includes not to unhook IV.. Patient and/or promotions representative verbalizes understanding. Will continue to monitor.
[2021-04-25] MEDS: dilTIAZem 60 mg Tablet PO ×3 (08:22→21:08)
[2021-04-25] MEDS: venlafaxine ER (24HR) 37.5 mg Capsule PO (08:22)
[2021-04-25] MEDS: budesonide 0.5 mg/2 mL Neb INHALATION ×2 (09:24→19:51)
[2021-04-25] MEDS: vancomycin 1,500 MG/300 ML PIGGYBACK 200 MG IV (12:22)
[2021-04-25 15:44] LABS: Free T4 Free Thyroxine 1.16 ng/dL (0.82-1.77)
[2021-04-25] MEDS: enoxaparin 40 mg/0.4 mL Syringe SUBCUT (16:19)
[2021-04-25] MEDS: levofloxacin-dextrose 5 % 750 MG/150 ML PREMIX 100 MG IV (16:19)
--- NOTE | 2021-04-25 17:48 | CTR_ITS ---
PROCEDURE INFORMATION: Exam: CTA Chest With Contrast Exam date and time: 04/25/2021 5:48 PM Age: 55 years old Clinical indication: Pain; Dyspnea; Chest pressure; Additional info: Chest pain, hypoxia TECHNIQUE: Imaging protocol: Computed tomographic angiography of the chest with contrast. 3D rendering (Not supervised by radiologist): MIP and/or 3D reconstructed images were created by the technologist. Radiation optimization: All CT scans at this facility use at least one of these dose optimization techniques: automated exposure control; mA and/or kV adjustment per patient size (includes targeted exams where dose is matched to clinical indication); or iterative reconstruction. Contrast material: OMNI 350; Contrast volume: 95 ml; Contrast route: INTRAVENOUS (IV); COMPARISON: CT chest wo con [id number] 10/13/2017 11:18 AM RADIATION DOSE METRICS: Total DLP (mGy-cm): 617.12 FINDINGS: Pulmonary arteries: There is no evidence of filling defects within the pulmonary arterial circulation to suggest pulmonary embolism. Aorta: There is mild ectasia of the ascending thoracic aorta which measures 4 cm in diameter. Lungs: There is calcified granuloma in the right lower lobe. There is consolidation with air bronchograms involving almost all of the left lower lobe sparing some of the superior segment. These findings are worrisome for left lower lobe lobar pneumonia. Follow-up imaging is recommended after the patient's condition improves to document resolution of the findings. There is some masslike scarring in the posterior segment of the right upper lobe measuring up to 18 x 20 cm not significantly changed from 10/13/2017. This likely represents some benign scarring. There is some mild focal tree-in-bud type centrilobular nodular opacity in the periphery of the left upper lobe such as an image number 187 of series 3 and also laterally at the right lung base. This may represent some infectious bronchitis. There is some volume loss and infiltrate in the medial aspect of the right lower lobe abutting the paraspinous region and as ago esophageal recess worrisome for additional pneumonia. Follow-up suggested after treatment to document complete clearing. Pleural spaces: There is small left pleural effusion partly loculated within the upper end of the fissure. Heart: Not enlarged. There is some pericardial calcification along the right heart border not significantly changed Lymph nodes: There are calcified hilar mediastinal lymph nodes in keeping with old granulomatous disease. There are mildly prominent AP window lymph nodes measuring up to with 14 x 28 mm size node abutting the trachea previously measuring 8 x 21 mm there also some mildly prominent prevascular lymph nodes more prominent than on the previous examination and right paratracheal lymph node measuring 12 x 15 mm, previously 12 x 12 mm. Bones/joints: Unremarkable. No acute fracture. Soft tissues: Unremarkable. CT/CT angio chest PE protcl [id number] IMPRESSION: 1. No evidence of pulmonary embolism. 2. Lobar pneumonia left lower lobe 3. Findings of infectious bronchiolitis right upper lobe and right lower lobe. 4. Focal atelectasis and pneumonia medially at the right lung base. 5. Scarring in the right upper lobe not changed from 10/13/2017. 6. Mild mediastinal adenopathy possibly reactive. 7. Old granulomatous disease.
--- NOTE | 2021-04-25 17:48 | P.PN_ITS ---
Subjective Subjective: Interval history: Still having symptoms of left-sided chest pain with inspiration. Cough. Discussed with him 2/3 blood cultures positive for gram-positive cocci. Discussed possible translocation secondary to pneumonia. He denies any IV drug use. Vitals/I&O/Wt Last Vital Signs Temp 98.9 F 04/25/21 12:00 Pulse 97 04/25/21 16:00 Resp 21 H 04/25/21 16:00 BP 123/80 04/25/21 16:00 Pulse Ox 95 04/25/21 16:00 04/25/21 04/25/21 04/25/21 06:59 14:59 22:59 Intake Total 1315 / 1965 500 / 500 1300 / 1800 Balance 1315 / 1965 500 / 500 1300 / 1800 Weight last 48 hrs Weight 78.018 kg Weight 78.018 kg Physical Exam Const: COMMON NORMALS: no acute distress, patient oriented x3 and alert GENERAL APPEARANCE: cooperative; not comfortable (Appears slightly more comfortable today.) ORIENTATION/CONSCIOUSNESS: Yes awake HENMT: COMMON NORMALS: oropharynx normal Neck/C-Spine: COMMON NORMALS: no JVD Resp: COMMON NORMALS: normal respiratory effort and clear to auscultation bilaterally AUSCULTATION: clear to auscultation bilaterally, no wheezes and diminished lung sounds on the left in the lower lung kumari Cardio: COMMON NORMALS: no JVD, regular rhythm, S1 normal heart sound present, S2 normal heart sound present and No murmurs present (Cardio) RHYTHM: regular rhythm and abnormal rhythm irregularly irregular HEART SOUNDS: S1 normal heart sound present and S2 normal heart sound present GI: COMMON NORMALS: Normal to inspection, nondistended, normoactive bowel courtney nds present, Soft to palpation and non-tender PALPATION: Yes Soft to palpation Extremity: COMMON NORMALS: no joint enlargement and no pedal edema Neuro: COMMON NORMALS: patient oriented x3 and moves all extremities SENSORIUM/ORIENTATION: Yes alert Skin: COMMON NORMALS: no rashes or lesions noted GENERAL SKIN EXAM: no rashes or lesions noted Data : 04/25/21 05:13 04/25/21 05:13 Micro: Microbiology 04/25/21 17:25 Blood Culture - Preliminary Blood SPECIMEN COLLECTED 04/25/21 17:22 Blood Culture - Preliminary Blood SPECIMEN COLLECTED 04/24/21 16:06 Blood Culture - Preliminary Blood Gram positive cocci 04/24/21 16:06 Blood Culture - Preliminary Blood Gram positive cocci 04/25/21 04:40 Gram Stain - Final Sputum - Expectorated Sputum A&P Assessment and plan (1) Pneumonia: 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 Discussed with him possible sepsis with high leukocytosis, although difficult to say given tachycardia secondary to atrial fibrillation. Appears to be showing improvement in leukocytosis. Continue to biotics. In light of bacteremia we will additionally assessed by CT. With persistent le ft-sided chest pain, hypoxia will assess CTA. Discussed risk of contrast nephropathy. Continue to biotic coverage with Levaquin, vancomycin. Follow-up blood, sputum cultures, COVID-19 PCR still pending. Oxygen support. Status: Acute (2) Leukocytosis: Improving. Suspected secondary to infection. Continue treatment of pneumonia as above. Will request peripheral smear. Will also check C. difficile given diarrhea. Status: Acute (3) Paroxysmal atrial fibrillation with RVR: Wean off Cardizem drip. Continue oral Cardizem. Continue to treat pneumonia. TSH mildly elevated, 5.2. Free T4 checked and normal. K3.7, mag 1.8. Will give additional potassium, give magnesium. Monitor on telemetry. Treat pneumonia. At this time chest pain very clearly pleuritic, not suggestive of pericarditis. CRP elevated 548.2. ESR pending. Additional assessment by CT to assess pneumonia, pleural effusion. Troponin mildly elevated, without rise. Status: Acute Additional A&P Information Hx asthma Hx pericarditis HTN PTSD Attestations Medical Necessity Statement*: Continue admission for additional assessment and management of pneumonia with pleuritic chest pain, pleural effusion, bacteremia. Coding Level of Care Code Acute Compounding Pharmacy Technician for [facility] Fwd Diagnoses Pneumonia J18.9 Leukocytosis D72.829 Paroxysmal atrial fibrillation with RVR I48.0
--- NOTE | 2021-04-25 18:52 | PC.NURSE ---
Pt sitting up in bed watching tv. Pt resp even and non-labored no s/s of distress or sob noted. Pt had no c/o pain or discomfort at the present time. no needs voiced. Call light in reach.
[2021-04-25] MEDS: potassium chloride ER 20 mEq Tablet PO (19:26)
[2021-04-25] MEDS: iohexol 350 mg/mL 100 mL Btl IV (21:04)
[2021-04-25] MEDS: trazodone 150 mg Tablet 300 MG PO (21:08)
[2021-04-26] VITALS (33 sets, daily range): BP systolic 103–135; BP diastolic 77–89; PULSE 69–96; RESP 18–25; TEMP 36.1–36.4; O2SAT 93–98
[2021-04-26 06:10] LABS: Basophils % 0.3 %; Eosinophils # 0.3 10^3/uL (0.0-0.8); Eosinophils % 2.2 %; Hematocrit 33.4 % (42.0-52.0); Lymphocytes # 0.7 10^3/uL (0.8-4.8); Lymphocytes % 6.4 %; Mean Corpuscular HGB Conc 32.9 g/dL (30.0-36.0); Mean Corpuscular Hemoglobin 28.8 pg (28.0-34.0); Mean Corpuscular Volume 87.4 fl (80-94); Mean Platelet Volume 10.2 fL (7.4-10.4); Monocytes # 0.8 10^3/uL (0.2-0.9); Monocytes % 7.3 %; Neutrophils # 9.39 10^3/uL (1.8-7.7); Neutrophils % 82.9 %; Nucleated Red Blood Cells % 0 %; Platelet Count 256 10^3/cmm (130-400); Red Blood Count 3.82 10^6/uL (4.1-5.3); Red Cell Distribution Width 13.9 % (12.1-15.1); White Blood Count 11.3 10^3/uL (4.0-10.0)
[2021-04-26] MEDS: vancomycin 1,500 MG/300 ML PIGGYBACK 200 MG IV (06:15)
[2021-04-26] MEDS: sodium chloride 0.9% 1,000 ML 100 ML IV ×2 (06:17→17:12)
[2021-04-26 06:36] LABS: Alanine Aminotransferase 15 U/L (0-41); Albumin Level 3.3 g/dL (3.5-5.2); Alkaline Phosphatase 87 IU/L (40-130); Anion Gap 15.7 (5-19); Aspartate Amino Transferase 13 U/L (0-40); Blood Urea Nitrogen 14 mg/dL (6-20); Calcium 8.1 mg/dL (8.5-10.5); Carbon Dioxide 22 mmol/L (22-29); Chloride 106 mmol/L (98-107); Creatinine Clr Calc Pharmacy 106.6148; Globulin 2.1 g/dL (1.3-4.6); Glomerular Filtration Rate 100.4 mL/min (90-130); Glucose 99 mg/dL (65-115); Osmolality Calculated 291 mOsm/kg (285-295); Potassium 3.7 mmol/L (3.5-5.1); Sodium 140 mmol/L (136-145); Total Bilirubin 0.3 mg/dL (0.15-1.2); Total Protein 5.4 g/dL (6.6-8.7)
[2021-04-26] MEDS: venlafaxine ER (24HR) 37.5 mg Capsule PO (08:04)
[2021-04-26] MEDS: guaiFENesin-dextromethorphan UDC 10 mL PO ×2 (08:04→14:59)
[2021-04-26] MEDS: dilTIAZem 60 mg Tablet PO ×3 (08:04→20:13)
[2021-04-26] MEDS: acetaminophen 325 mg Tablet 650 MG PO (08:04)
[2021-04-26] MEDS: budesonide 0.5 mg/2 mL Neb INHALATION ×2 (09:17→19:10)
[2021-04-26] MEDS: levofloxacin-dextrose 5 % 750 MG/150 ML PREMIX 100 MG IV (14:59)
[2021-04-26] MEDS: enoxaparin 40 mg/0.4 mL Syringe SUBCUT (17:12)
--- NOTE | 2021-04-26 18:46 | PC.NURSE ---
Shift Note Frequent safety and comfort rounds continue. Orders and/or nursing care completed as indicated. Patient monitored for response to intervention and treatment(s). Education provided includes disease process. Patient and/or business representative verbalized understanding. Will continue to monitor.
[2021-04-26] MEDS: trazodone 150 mg Tablet 300 MG PO (20:14)
--- NOTE | 2021-04-26 20:21 | PM.PN ---
Subjective Subjective: Interval history: He is feeling perhaps mildly better, not significantly so. Pleuritic discomfort persists. Coughing slightly less. Vitals/I&O/Wt Last Vital Signs Temp 97.2 F L 04/26/21 19:56 Pulse 83 04/26/21 19:56 Resp 20 H 04/26/21 19:56 BP 128/78 04/26/21 19:56 Pulse Ox 95 04/26/21 19:56 04/26/21 04/26/21 04/26/21 06:59 14:59 22:59 Intake Total 1202 / 3402 1020 / 1020 1510 / 2530 Output Total 1500 / 1500 800 / 2300 Balance 1202 / 3402 -480 / -480 710 / 230 Weight last 48 hrs Weight 78.018 kg Physical Exam Const: COMMON NORMALS: no acute distress, patient oriented x3 and alert GENERAL APPEARANCE: cooperative; not comfortable (Appears slightly more comfortable today.) ORIENTATION/CONSCIOUSNESS: Yes awake HENMT: COMMON NORMALS: oropharynx normal Neck/C-Spine: COMMON NORMALS: no JVD Resp: COMMON NORMALS: normal respiratory effort and clear to auscultation bilaterally AUSCULTATION: clear to auscultation bilaterally, crackles Laterality: left (lower), wheezes left lower and diminished lung sounds on the left in the lower lung kumari Cardio: COMMON NORMALS: no JVD, regular rhythm, S1 normal heart sound present, S2 normal heart sound present and No murmurs present (Cardio) RHYTHM: regular rhythm and abnormal rhythm irregularly irregular HEART SOUNDS: S1 normal heart sound present and S2 normal heart sound present GI: COMMON NORMALS: Normal to inspection, nondistended, normoactive bowel sounds present, Soft to palpation and non-tender PALPATION: Yes Soft to palpation Extremity: COMMON NORMALS: no joint enlargement and no pedal edema Neuro: COMMON NORMALS: patient oriented x3 and moves all extremities SENSORIUM/ORIENTATION: Yes alert Skin: COMMON NORMALS: no rashes or lesions noted GENERAL SKIN EXAM: no rashes or lesions noted Data : 04/26/21 05:40 04/26/21 05:40 Micro: Microbiology 04/25/21 17:22 Blood Culture - Preliminary Blood NEGATIVE TO DATE 04/25/21 04:40 Gram Stain - Final Sputum - Expectorated Sputum Sputum Culture - Preliminary 04/24/21 16:06 Blood Culture - Preliminary Blood Strep species, alpha hemolytic 04/24/21 16:06 Blood Culture - Preliminary Blood Strep species, alpha hemolytic 04/25/21 21:50 Legionella Urinary Antigen - Final Urine,Voided Bacterial Antigens - Final 04/26/21 05:40 Blood Culture - Preliminary Blood SPECIMEN COLLECTED A&P Assessment and plan (1) Pneumonia: Discussed with him results of CTA. Left lower lobe findings suggestive of lobar pneumonia. Also chronic scarring. Noted additional findings suggestive of other foci of pneumonia and infectious bronchitis. Symptomatically not much better. Follow-up microbiologic studies. No significant effusion to drain. Follow-up blood, sputum cultures, COVID-19 PCR still pending. With possible bacterial translocation to blood. Discussed with him possible sepsis with high leukocytosis, although difficult to say given tachycardia secondary to atrial fibrillation. Appears to be showing improvement in leukocytosis with treatment. Urine bacterial antigens unremarkable. Continue Levaquin, vancomycin. Oxygen support. Status: Acute (2) Leukocytosis: Improving. Suspected secondary to infection. Continue treatment of pneumonia as above. Peripheral smear was requested on presentation due to severity of leukocytosis. C. difficile was requested given diarrhea on presentation, but not collected so far. Status: Acute (3) Paroxysmal atrial fibrillation with RVR: Converted to sinus rhythm. For now continue oral Cardizem. Continue to treat pneumonia. TSH mildly elevated, 5.2. Free T4 checked and normal. K3.7, mag 1.8. Will give additional potassium, give magnesium. Monitor on telemetry. Treat pneumonia. At this time chest pain very clearly pleuritic, not suggestive of pericarditis. CRP elevated 548.2. ESR pending. Additional assessment by CT to assess pneumonia, pleural effusion. Troponin mildly elevated, without rise. Status: Acute Additional A&P Information Hx asthma Hx pericarditis HTN PTSD Attestations Medical Necessity Statement*: Continue admission for assessment of management of complicated pneumonia with gram-positive cocci bacteremia. Coding Level of Care Code Acute Client Hr Manager for [facility] Fw Diagnoses Pneumonia J18.9 Leukocytosis D72.829 Paroxysmal atrial fibrillation with RVR I48.0
[2021-04-27] VITALS (13 sets, daily range): BP systolic 107–153; BP diastolic 64–107; PULSE 70–96; RESP 18–20; TEMP 36.7–37.1; O2SAT 94–97
[2021-04-27 01:00] LABS: Vancomycin Trough 5.2 ug/mL (10-15)
--- NOTE | 2021-04-27 01:15 | PC.PHAR ---
Vancomycin trough on dosage of 1500mg IVPB every 18 hours is 5.2 Increase to 1500mg IVPB every 12 hours with another trough to be obtained before the fourth dose.
[2021-04-27] MEDS: sodium chloride 0.9% 1,000 ML 100 ML IV (01:41)
[2021-04-27] MEDS: vancomycin 1,500 MG/300 ML PIGGYBACK 150 MG IV ×2 (01:51→14:29)
[2021-04-27] MEDS: guaiFENesin-dextromethorphan UDC 10 mL PO (01:56)
[2021-04-27 03:19] LABS: Basophils # 0.1 10^3/uL (0.0-0.1); Basophils % 0.4 %; Eosinophils # 0.3 10^3/uL (0.0-0.8); Eosinophils % 2.3 %; Hematocrit 31.8 % (42.0-52.0); Hemoglobin 10.4 g/dL (11.7-16.6); Lymphocytes # 0.7 10^3/uL (0.8-4.8); Lymphocytes % 6.1 %; Mean Corpuscular HGB Conc 32.7 g/dL (30.0-36.0); Mean Corpuscular Volume 88.6 fl (80-94); Monocytes % 8.5 %; Neutrophils # 9.07 10^3/uL (1.8-7.7); Neutrophils % 81.2 %; Nucleated Red Blood Cells % 0 %; Platelet Count 246 10^3/cmm (130-400); Red Blood Count 3.59 10^6/uL (4.1-5.3); Red Cell Distribution Width 14.3 % (12.1-15.1); White Blood Count 11.2 10^3/uL (4.0-10.0)
[2021-04-27 03:41] LABS: Alanine Aminotransferase 18 U/L (0-41); Albumin Level 3.1 g/dL (3.5-5.2); Alkaline Phosphatase 83 IU/L (40-130); Anion Gap 16.9 (5-19); Aspartate Amino Transferase 13 U/L (0-40); Blood Urea Nitrogen 15 mg/dL (6-20); Calcium 8.1 mg/dL (8.5-10.5); Carbon Dioxide 21 mmol/L (22-29); Chloride 104 mmol/L (98-107); Glomerular Filtration Rate 117.1 mL/min (90-130); Glucose 113 mg/dL (65-115); Osmolality Calculated 288 mOsm/kg (285-295); Potassium 3.9 mmol/L (3.5-5.1); Sodium 138 mmol/L (136-145); Total Bilirubin 0.2 mg/dL (0.15-1.2); Total Protein 5.1 g/dL (6.6-8.7)
[2021-04-27] MEDS: budesonide 0.5 mg/2 mL Neb INHALATION (08:22)
--- NOTE | 2021-04-27 08:53 | USCV_ITS ---
Charles Looney Age: 55 Gender: M : 1965 Exam Date: 04/27/2021 09:20 Ordering Phys: Harry Mina MD Technologist: Tata Gallegos [place] [facility] [place]ication: HX OF PERICARDITIS AND NOW COVID BP: 153 / 96 HR: 85 Rhythm: Sinus Technical Quality: Adequate MEASUREMENTS (Male / Female) Normal Values 2D ECHO LV Diastolic Diameter PLAX 3.1 cm 4.2 - 5.9 / 3.9 - 5.3 cm LV Systolic Diameter PLAX 1.9 cm LV Chamber Size 4.1 cm IVS Diastolic Thickness 1.1 cm 0.6 - 1.0 / 0.6 - 0.9 cm IVS Systolic Thickness 1.3 cm LVPW Diastolic Thickness 1.3 cm 0.6 - 1.0 / 0.6 - 0.9 cm LVPW Systolic Thickness 1.5 cm RV Chamber Size 3.0 cm LVOT Diameter 2.0 cm LV Ejection Fraction 2D Teich 68.9 % LV Ejection Fraction MOD 2C 53.4 % LV Ejection Fraction 2C AL 52.5 % LA Diameter 3.6 cm LA Width 3.5 cm LA Height 4.1 cm RA Width 3.8 cm RA Height 4.5 cm Aorta at Sinotubular Diameter 2.7 cm M-MODE Aortic Annulus Diameter 3.4 cm LA Ao Ratio MM 1.2 MV E Point Septal Separation 0.1 cm DOPPLER AV Peak Velocity 149.0 cm/s LVOT Peak Velocity 89.0 cm/s AV Area Cont Eq vti 2.0 cm squared AV Area Cont Eq pk 1.9 cm squared MV Area PHT 4.1 cm squared Mitral E to A Ratio 1.6 MV E' Velocity 56.0 cm/s Mitral E to MV E' Ratio 6.2 Mitral E to LV E' Lateral Ratio 5.1 Mitral E to LV E' Septal Ratio 8.1 TR Peak Velocity 202.5 cm/s TR Peak Gradient 16.4 mmHg TR Mean Velocity 153.2 cm/s TR Mean Gradient 10.6 mmHg TR Velocity Time Integral 54.3 cm TV Peak E Velocity 84.0 cm/s Right Atrial Pressure 3.0 mmHg Pulmonary Artery Systolic Pressu 19.4 mmHg PV Peak Velocity 81.0 cm/s RV Acceleration Time 0.1 s RV Ejection Time 0.3 s RV AcT/ET 0.4 FINDINGS Left Ventricle Normal left ventricular size and systolic function, EF 56 %. No regional wall motion abnormalities. Right Ventricle Possibly of normal size and ejection fraction Right Atrium Mildly increased right atrial size. Left Atrium Mildly increased left atrial size. Mitral Valve Thickened mitral valve. Aortic Valve Thickened aortic valve. Tricuspid Valve Could not be visualized well Pulmonic Valve Pulmonic valve not well visualized. Pericardium Normal pericardium without effusion. Aorta Normal ascending aorta dimension. CONCLUSIONS Normal left ventricular size and systolic function, EF 56 %. No regional wall motion abnormalities. Mild biatrial enlargement Minimally thickened aortic and mitral valves. The right-sided chambers could not be visualized well There is no pericardial effusion. There are no intracardiac masses. No previous study is available for comparison. Dr Ranjeet Acosta MD FACC (Electronically Signed) Final Date: 27 April 2021 20:28 S
--- NOTE | 2021-04-27 08:55 | XR_ITS ---
WS: [id number] XR chest 1V portable [id number] REASON FOR EXAM: pna FINDINGS: Vague increased density in the right upper lung medially which corresponds to the parenchymal abnorma lity in the right lung seen on the previous CT scan 04/25/2021. Continued consolidation in the left lower lung with left pleural effusion. Increasing loss of volume and density in the left lower hemithorax compared to 04/24/2021. No other interval change or new finding. XR/XR chest 1V portable [id number] IMPRESSION: Abnormal chest with interval change as above.
[2021-04-27 09:24] LABS: Chol HDL Ratio 12.91 mg/dL (1.0-5.00); Cholesterol 142 mg/dL (0-200); HDL Cholesterol 11 mg/dL (60-100); Iron 35 ug/dL (59-158); LDL Cholesterol Calculated 101 mg/dL (50-129); Percent Saturation 17.2 % (20-50); Total Iron Binding Capacity 203 mcg/dl; Triglycerides 151 mg/dL (0-150); Unsaturated Iron Binding 168 ug/dL (112-347); VLDL Cholestrol Calculation 30 mg/dL (0-30)
[2021-04-27] MEDS: venlafaxine ER (24HR) 37.5 mg Capsule PO (09:24)
[2021-04-27] MEDS: dilTIAZem 60 mg Tablet PO ×3 (09:24→21:34)
[2021-04-27 09:27] LABS: Troponin T (5th) Once 17 ng/L (0-15)
[2021-04-27 09:50] LABS: Estmated Average Glucose 97
--- NOTE | 2021-04-27 16:30 | P.PN_ITS ---
Subjective Subjective: Interval history: Hospital course, labs appreciated. Examination patient lying comfortably in bed on 1 L oxygen supplementation currently 94%. States he is doing well. Does not seem Giurgius. On having cough which is distressing to him. Denies any nausea vomiting, headache. Has remained hemodynamically stable and afebrile. Vitals/I&O/Wt Last Vital Signs Temp 98.7 F 04/27/21 10:16 Pulse 83 04/27/21 10:16 Resp 19 H 04/27/21 08:24 BP 153/96 04/27/21 10:16 Pulse Ox 94 04/27/21 10:16 04/27/21 04/27/21 04/27/21 06:59 14:59 22:59 Intake Total 1148.333 / 3678.333 236 / 236 Output Total 500 / 500 Balance 1148.333 / 1378.333 -264 / -264 Physical Exam Const: COMMON NORMALS: no acute distress, patient oriented x3 and alert GENERAL APPEARANCE: cooperative; not comfortable (Appears slightly more comfortable today.) ORIENTATION/CONSCIOUSNESS: Yes awake HENMT: COMMON NORMALS: oropharynx normal Neck/C-Spine: COMMON NORMALS: no JVD Resp: COMMON NORMALS: normal respiratory effort and clear to auscultation bilaterally AUSCULTATION: clear to auscultation bilaterally, crackles Laterality: left (lower), wheezes left lower and diminished lung sounds on the left in the lower lung kumari Cardio: COMMON NORMALS: no JVD, regular rhythm, S1 normal heart sound present, S2 normal heart sound present and No murmurs present (Cardio) RHYTHM: regular rhythm and abnormal rhythm irregularly irregular HEART SOUNDS: S1 normal heart sound present and S2 normal heart sound present GI: COMMON NORMALS: Normal to inspection, nondistended, normoactive bowel sounds present, Soft to palpation and non-tender PALPATION: Yes Soft to palpation Extremity: COMMON NORMALS: no joint enlargement and no pedal edema Neuro: COMMON NORMALS: patient oriented x3 and moves all extremities SEN SORIUM/ORIENTATION: Yes alert Skin: COMMON NORMALS: no rashes or lesions noted GENERAL SKIN EXAM: no rashes or lesions noted Data : 04/27/21 02:40 04/27/21 02:40 Micro: Microbiology 04/24/21 16:06 Blood Culture - Preliminary Blood Streptococcus pneumoniae 04/24/21 16:06 Blood Culture - Preliminary Blood Streptococcus pneumoniae 04/25/21 04:40 Gram Stain - Final Sputum - Expectorated Sputum Sputum Culture - Final 04/26/21 05:40 Blood Culture - Preliminary Blood NEGATIVE TO DATE 04/25/21 17:22 Blood Culture - Preliminary Blood NEGATIVE TO DATE A&P Assessment and plan (1) Bacteremia due to Streptococcus: Blood cultures from admission positive for streptococcal pneumonia. Repeat blood cultures so far negative. For now continue with IV vancomycin. Patient will most likely require antib iotics for overall 14 days since last positive blood cultures. Depending on the culture sensitivity we will plan to switch over to oral antibiotics. Status: Acute (2) Pneumonia: CT results appreciated. Suggestive of left lower lobe pneumonia along with chronic scarring. Continue with oral Levaquin for 5 days with last dose on 04/28. Continue with IV vancomycin. Follow-up sputum cultures. COVID-19 PCR still pending. Continue with isolation precautions. Oxygen supplementation keeping saturation over 88%. Status: Acute (3) Paroxysmal atrial fibrillation with RVR: Converted to sinus rhythm. Continue with oral Cardizem. Patient gives history of A. fib in the past. Juanito vas score 1 for hypertension. Start patient on aspirin 325 mg daily. Check echocardiogram to evaluate for EF, valvular abnormalities. TSH elevated, free T4 normal. Status: Acute (4) Close exposure to COVID-19 virus: Status: Acute (5) Asthma: Status: Acute Qualifiers: Asthma severity: unspecified severity (6) Essential (primary) hypertension: Goal blood pressure less than 140/90 mmHg. Depending on the blood pressure will add further antihypertensives. Status: Acute (7) Leukocytosis: Improving. Suspected secondary to infection. Continue treatment of pneumonia as above. Peripheral smear was requested on presentation due to severity of leukocytosis. C. difficile was requested given diarrhea on presentation, but not collected so far. Status: Acute Additional A&P Information Chest pain: Secondary to pericarditis versus pleuritic chest pain from pneumonia. Add troponin levels to morning blood samples to evaluate for troponin cycle as compared to on admission. Check iron panel, HbA1c, lipid panel. Hx asthma Hx pericarditis HTN PTSD Full code. Lovenox for DVT prophylaxis. Famotidine for PUD prophylaxis. Attestations Medical Necessity Statement*: Requires further hospitalization for streptococcal bacteremia, pneumonia, atrial fibrillation. Time Spent in Patient Care: Greater than 35 minutes (>than 50% of time spent in counselling and/or direct pt care on unit) . Coding Level of Care Code Acute Healthcare Technician for Chg Fwd Diagnoses Bacteremia due to Streptococcus R78.81; B95.5 Pneumonia J18.9 Paroxysmal atrial fibrillation with RVR I48.0 Close exposure to COVID-19 virus Z20.828 Asthma J45.909 Asthma severity: unspecified severity Essential (primary) hypertension I10 Leukocytosis D72.829
[2021-04-27 16:33] LABS: SARS Covid-2 Antigen Negative (Negative)
[2021-04-27] MEDS: benzonatate 100 mg Capsule 200 MG PO ×2 (17:05→22:26)
[2021-04-27] MEDS: enoxaparin 40 mg/0.4 mL Syringe SUBCUT (17:05)
[2021-04-27] MEDS: aspirin 325 mg EC Tablet PO (17:06)
[2021-04-27] MEDS: levofloxacin-dextrose 5 % 750 MG/150 ML PREMIX 100 MG IV (17:06)
[2021-04-27] MEDS: famotidine 20 mg Tablet PO (17:06)
--- NOTE | 2021-04-27 17:39 | PC.NURSE ---
Patient had reaction to IV Levaquin. One minute after IV therapy was initiated patient began complaining of burning and itching above IV site. Rash was present and appeared to be hives. Levaquin stopped, IV removed. Physician notified.
[2021-04-27] MEDS: trazodone 150 mg Tablet 300 MG PO (21:34)
[2021-04-28] VITALS (9 sets, daily range): BP systolic 98–131; BP diastolic 60–84; PULSE 72–87; RESP 16–18; TEMP 36.6–37.1; O2SAT 93–96
[2021-04-28] MEDS: vancomycin 1,500 MG/300 ML PIGGYBACK 150 MG IV (01:44)
--- NOTE | 2021-04-28 02:19 | PC.NURSE ---
Shift Note Frequent safety and comfort rounds continue. Orders and/or nursing care completed as indicated. Patient monitored for response to intervention and treatment(s). Education provided includes isolation precautions, oxygen safety. 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 Will continue to monitor.
[2021-04-28 03:47] LABS: Basophils # 0.1 10^3/uL (0.0-0.1); Basophils % 0.5 %; Eosinophils # 0.4 10^3/uL (0.0-0.8); Hematocrit 32.9 % (42.0-52.0); Hemoglobin 10.9 g/dL (11.7-16.6); Lymphocytes % 6.8 %; Mean Corpuscular HGB Conc 33.1 g/dL (30.0-36.0); Mean Corpuscular Hemoglobin 29.2 pg (28.0-34.0); Mean Corpuscular Volume 88.2 fl (80-94); Mean Platelet Volume 11.6 fL (7.4-10.4); Monocytes # 1.6 10^3/uL (0.2-0.9); Monocytes % 10.9 %; Neutrophils # 10.98 10^3/uL (1.8-7.7); Neutrophils % 74.5 %; Nucleated Red Blood Cells % 0 %; Platelet Count 320 10^3/cmm (130-400); Red Blood Count 3.73 10^6/uL (4.1-5.3); Red Cell Distribution Width 14.5 % (12.1-15.1); White Blood Count 14.8 10^3/uL (4.0-10.0)
[2021-04-28 04:11] LABS: Alanine Aminotransferase 18 U/L (0-41); Alkaline Phosphatase 95 IU/L (40-130); Anion Gap 15.8 (5-19); Aspartate Amino Transferase 11 U/L (0-40); Blood Urea Nitrogen 11 mg/dL (6-20); Calcium 8.2 mg/dL (8.5-10.5); Carbon Dioxide 21 mmol/L (22-29); Chloride 106 mmol/L (98-107); Globulin 2.3 g/dL (1.3-4.6); Glomerular Filtration Rate 117.1 mL/min (90-130); Glucose 100 mg/dL (65-115); Osmolality Calculated 287 mOsm/kg (285-295); Potassium 3.8 mmol/L (3.5-5.1); Sodium 139 mmol/L (136-145); Total Bilirubin 0.3 mg/dL (0.15-1.2); Total Protein 5.3 g/dL (6.6-8.7)
[2021-04-28] MEDS: dilTIAZem 60 mg Tablet PO ×2 (08:14→15:43)
[2021-04-28] MEDS: venlafaxine ER (24HR) 37.5 mg Capsule PO (08:14)
[2021-04-28] MEDS: famotidine 20 mg Tablet PO (08:14)
[2021-04-28] MEDS: aspirin 325 mg EC Tablet PO (08:16)
--- NOTE | 2021-04-28 11:22 | P.DS_ITS ---
Discharge Providers Date of Admission: 04/24/21 15:43 Date of Discharge: April 28, 2021 Attending Provider at Admission: Donald Miguel Attending Provider at Discharge: Harry Mina MD Primary Care Provider: Christiano Whitt DO Diagnoses at Discharge Discharge Diagnosis (1) Bacteremia due to Streptococcus: Status: Acute (2) Pneumonia: Status: Acute (3) Paroxysmal atrial fibrillation with RVR: Status: Acute (4) Close exposure to COVID-19 virus: Status: Acute (5) Asthma: Status: Acute Qualifiers: Asthma severity: unspecified severity (6) Essential (primary) hypertension: Status: Acute (7) Leukocytosis: Status: Acute Reason for Visit Reason for Visit: cp Hospital Course Hospital Course Pleasant 55-year-old gentleman with history of asthma, remote history of atrial fibrillation, remote history of pericarditis, has been dealing with left chest pain with inspiration, cough, feeling congestion in his chest, but unable to bring up phlegm. Also reports headache, and diarrhea. Denies any immobilization, in fact has been working up until today when he finally told his employer he had to go to the hospital. Denies any lower extremity edema. Denies hemoptysis. History of VTE. In ER was noted to be in atrial fibrillation with RVR presentation, heart rates into the 160s-170s. Troponin 26-20.74. NT proBNP 2582. Patient went to the hospital for further management of atrial fibrillation with rapid ventricular response and left lower lobe pneumonia. Patient was started on IV Cardizem which was later transitioned over to oral Cardizem. He was started on aspirin 325 mg daily for stroke prevention for Juanito vas score of 1. Echocardiogram was done which showed a normal EF with mildly dilated LA. CT chest was done which was consistent with left lower lobe pneumonia along with chronic scarring. COVID-19 PCR has been sent out and is pending. Patient has shown improvement in his symptoms on IV antibiotics. He has remained hemodynamically stable. His blood cultures from day of admission came back positive for streptococcal pneumonia. Repeat blood cultures from 04/25 has been negative. He has been discharged in hemodynamically stable condition with advised to take IV ceftriaxone for next 10 days for streptococcal bacteremia. He is to take oral Cardizem 180 mg daily along with aspirin 325 mg daily for stroke prevention. He is to follow-up with his primary care provider within next 1 week. Physical Exam Const: COMMON NORMALS: no acute distress, patient oriented x3 and alert GENERAL APPEARANCE: cooperative; not comfortable (Appears slightly more comfortable today.) ORIENTATION/CONSCIOUSNESS: Yes awake HENMT: COMMON NORMALS: oropharynx normal Neck/C-Spine: COMMON NORMALS: no JVD Resp: COMMON NORMALS: normal respiratory effort and clear to auscultation bilaterally AUSCULTATION: clear to auscultation bilaterally, crackles Laterality: left (lower), wheezes left lower and diminished lung sounds on the left in the lower lung kumari Cardio: COMMON NORMALS: no JVD, regular rhythm, S1 normal heart sound present, S2 normal heart sound present and No murmurs present (Cardio) RHYTHM: regular rhythm and abnormal rhythm irregularly irregular HEART SOUNDS: S1 normal heart sound present and S2 normal heart sound present GI: COMMON NORMALS: Normal to inspection, nondistended, normoactive bowel sounds present, Soft to palpation and non-tender PALPATION: Yes Soft to palpation Extremity: COMMON NORMALS: no joint enlargement and no pedal edema Neuro: COMMON NORMALS: patient oriented x3 and moves all extremities SENSORIUM/ORIENTATION: Yes alert Skin: COMMON NORMALS: no rashes or lesions noted GENERAL SKIN EXAM: no rashes or lesions noted Discharge Data Data Completed and Pending: Completed Studies During Hospitalization Category Date Time Status CT angio chest PE protcl [id number] Rout ine Cat Scan 04/25/21 17:48 Completed XR chest 1V raina ble [id number] Routine Exams 04/27/21 08:55 Completed XR chest 1V raina ble [id number] Stat Exams 04/24/21 12:50 Completed CV. echo complete * [id number] Routine Ultrasound 04/27/21 08:53 Completed Pending at discharge Category Date Time Status Blood Culture Rou gutierrez Lab 04/25/21 19:30 Results Blood Culture Sta t Lab 04/24/21 16:06 Results Blood Culture Sta t Lab 04/25/21 17:25 Results COVID [Coronaviru s Test Green Count y] Routine Lab 04/27/21 14:43 Received Clostridioides Di fficile PCR Routin e Lab 04/24/21 18:25 Uncollected Erythrocyte Sedim entation Rate Rout ine Lab 04/24/21 18:25 Received [facility] SARS-CoV-2 RNA Routine Lab 04/24/21 19:37 Received Vancomycin Trough Timed Lab 04/28/21 13:00 Ordered Labs from last 24 hours 04/28/21 04/28/21 04/27/21 02:53 02:53 Unknown WBC 14.8 H RBC 3.73 L Hgb 10.9 L Hct 32.9 L MCV 88.2 MCH 29.2 MCHC 33.1 RDW 14.5 Plt Count 320 D MPV 11.6 H Neut % (Auto) 74.5 Lymph % (Auto) 6.8 [place] % (Auto) 10.9 Eos % (Auto) 3.0 Baso % (Auto) 0.5 Neut # (Auto) 10.98 H Lymph # (Auto) 1.0 [place] # (Auto) 1.6 H Eos # (Auto) 0.4 Baso # (Auto) 0.1 Nucleated RBC % (a uto) 0 Nucleated RBCs # 0.0 Sodium 139 Potassium 3.8 Chloride 106 Carbon Dioxide 21 L Anion Gap 15.8 BUN 11 Creatinine 0.7 GFR Calculation 117.1 Glucose 100 Calculated Osmolal ity 287 Calcium 8.2 L Total Bilirubin 0.3 AST 11 ALT 18 Alkaline Phosphata se 95 Total Protein 5.3 L Albumin 3.0 L Globulin 2.3 Nasal/Oral COVID-1 9 PCR SARS-CoV-2 Ag (Rap id) Negative 04/27/21 14:43 WBC RBC Hgb Hct MCV MCH MCHC RDW Plt Count MPV Neut % (Auto) Lymph % (Auto) [place] % (Auto) Eos % (Auto) Baso % (Auto) Neut # (Auto) Lymph # (Auto) [place] # (Auto) Eos # (Auto) Baso # (Auto) Nucleated RBC % (a uto) Nucleated RBCs # Sodium Potassium Chloride Carbon Dioxide Anion Gap BUN Creatinine GFR Calculation Glucose Calculated Osmolal ity Calcium Total Bilirubin AST ALT Alkaline Phosphata se Total Protein Albumin Globulin Nasal/Oral COVID-1 9 PCR Pending SARS-CoV-2 Ag (Rap id) Addt'l Data from Hospital Stay: Laboratory Results WBC 14.8 10^3/uL (4.0 -10.0) H 04/28/21 02:53 RBC 3.73 10^6/uL (4.1 -5.3) L 04/28/21 02:53 Hgb 10.9 g/dL (11.7-1 6.6) L 04/28/21 02:53 Hct 32.9 % (42.0-52.0 ) L 04/28/21 02:53 MCV 88.2 fl (80-94) 04/28/21 02:53 MCH 29.2 pg (28.0-34. 0) 04/28/21 02:53 MCHC 33.1 g/dL (30.0-3 6.0) 04/28/21 02:53 RDW 14.5 % (12.1-15.1 ) 04/28/21 02:53 Plt Count 320 10^3/cmm (130 -400) D 04/28/21 02:53 MPV 11.6 fL (7.4-10.4 ) H 04/28/21 02:53 Neut % (Auto) 74.5 % 04/28/21 02:53 Lymph % (Auto) 6.8 % 04/28/21 02:53 [place] % (Auto) 10.9 % 04/28/21 02:53 Eos % (Auto) 3.0 % 04/28/21 02:53 Baso % (Auto) 0.5 % 04/28/21 02:53 Neut # (Auto) 10.98 10^3/uL (1. 8-7.7) H 04/28/21 02:53 Lymph # (Auto) 1.0 10^3/uL (0.8- 4.8) 04/28/21 02:53 [place] # (Auto) 1.6 10^3/uL (0.2- 0.9) H 04/28/21 02:53 Eos # (Auto) 0.4 10^3/uL (0.0- 0.8) 04/28/21 02:53 Baso # (Auto) 0.1 10^3/uL (0.0- 0.1) 04/28/21 02:53 Nucleated RBC % (a uto) 0 % 04/28/21 02:53 Total Counted 100 (0-100) 04/24/21 12:50 Atypical Lymphs % 1.0 % (0-5) 04/24/21 12:50 Absolute Neutrophi ls 37.6 10^3/cmm (1. 4-6.5) H 04/24/21 12:50 Segmented Neutroph ils 93 % 04/24/21 12:50 Abs Segm Neuts (Ma n) 36.8 10/cmm (1.6- 7.1) H 04/24/21 12:50 Band Neutrophils 2.0 % 04/24/21 12:50 Abs Band Neuts (Ma n) 0.8 10^3/cmm (0.0 -1.2) 04/24/21 12:50 Absolute Lymphocyt es 0.4 10^3/cmm (1.2 -3.4) L 04/24/21 12:50 Lymphocytes (Manua l) 0 % 04/24/21 12:50 Monocytes (Manual) 4.0 % 04/24/21 12:50 Absolute Monocytes 1.6 10^3/cmm (0.1 -0.6) H 04/24/21 12:50 Eosinophils (Manua l) 0 % 04/24/21 12:50 Absolute Eosinophi ls 0.0 10^3/cmm (0.0 -0.7) 04/24/21 12:50 Basophils (Manual) 0.0 % 04/24/21 12:50 Absolute Basophils 0.0 10^3/cmm (0.0 -0.2) 04/24/21 12:50 Nucleated RBCs # 0.0 /100WBC 04/28/21 02:53 Platelet Estimate Normal (Normal) 04/24/21 12:50 PT 16.10 SECONDS (12 .1-14.9) H 04/24/21 12:50 INR 1.25 (0.8-1.2) H 04/24/21 12:50 APTT 32.3 SECONDS (23. 9-36.7) 04/24/21 12:50 Sodium 139 mmol/L (136-1 45) 04/28/21 02:53 Potassium 3.8 mmol/L (3.5-5 .1) 04/28/21 02:53 Chloride 106 mmol/L (98-10 7) 04/28/21 02:53 Carbon Dioxide 21 mmol/L (22-29) L 04/28/21 02:53 Anion Gap 15.8 (5-19) 04/28/21 02:53 BUN 11 mg/dL (6-20) 04/28/21 02:53 Creatinine 0.7 mg/dL (0.7-1. 2) 04/28/21 02:53 GFR Calculation 117.1 mL/min (90- 130) 04/28/21 02:53 Glucose 100 mg/dL (65-115 ) 04/28/21 02:53 Estimat Average Gl ucose 97 04/27/21 02:40 Hemoglobin A1c 5.0 % (4.0-6.0) 04/27/21 02:40 Calculated Osmolal ity 287 mOsm/kg (285- 295) 04/28/21 02:53 Calcium 8.2 mg/dL (8.5-10 .5) L 04/28/21 02:53 Magnesium 1.8 mg/dL (1.7-2. 3) 04/24/21 18:50 Iron 35 ug/dL (59-158) L 04/27/21 02:40 TIBC 203 mcg/dl 04/27/21 02:40 % Saturation 17.2 % (20-50) L 04/27/21 02:40 Unsat Iron Binding 168 ug/dL (112-34 7) 04/27/21 02:40 Total Bilirubin 0.3 mg/dL (0.15-1 .2) 04/28/21 02:53 AST 11 U/L (0-40) 04/28/21 02:53 ALT 18 U/L (0-41) 04/28/21 02:53 Alkaline Phosphata se 95 IU/L (40-130) 04/28/21 02:53 Creatine Kinase 256 U/L (39-308) 04/24/21 12:50 Troponin T Gen 5 n g/L 17 ng/L (0-15) H 04/27/21 02:40 Troponin T Baselin e 26 ng/L (0-15) H 04/24/21 12:50 Troponin T 120 Min hoh 20.74 ng/L (0-15) H 04/24/21 15:24 Delta Troponin T -5.26 ABS# (0-10) L 04/24/21 15:24 Troponin T Hi Sens 6Hr 18.52 ng/L (0-15) H 04/24/21 18:50 Troponin T Hi Sens 6Hr Delta -7.48 ng/L (0-12) L 04/24/21 18:50 C-Reactive Protein 548.2 mg/L (0.0-4 .9) H 04/24/21 18:50 NT-Pro-B Natriuret Pep 2582 pg/mL (0-125 ) H 04/24/21 12:50 Total Protein 5.3 g/dL (6.6-8.7 ) L 04/28/21 02:53 Albumin 3.0 g/dL (3.5-5.2 ) L 04/28/21 02:53 Globulin 2.3 g/dL (1.3-4.6 ) 04/28/21 02:53 Triglycerides 151 mg/dL (0-150) H 04/27/21 02:40 Cholesterol 142 mg/dL (0-200) 04/27/21 02:40 LDL Cholesterol, C alc 101 mg/dL (50-129 ) 04/27/21 02:40 Total VLDL Cholest felipe 30 mg/dL (0-30) 04/27/21 02:40 HDL Cholesterol 11 mg/dL (60-100) L 04/27/21 02:40 Cholesterol/HDL Ra gaurang 12.91 mg/dL (1.0- 5.00) H 04/27/21 02:40 TSH 5.20 uIU/mL (0.27 -4.20) H 04/24/21 18:50 Free T4 1.16 ng/dL (0.82- 1.77) 04/25/21 05:13 Vancomycin Trough 5.2 ug/mL (10-15) L 04/27/21 00:24 SARS-CoV-2 Ag (Rap id) Negative (Negati ve) 04/27/21 Unknown Impressions Chest CTA 04/25/21 17:48 IMPRESSION: 1. No evidence of pulmonary embolism. 2. Lobar pneumonia left lower lobe 3. Findings of infectious bronchiolitis right upper lobe and right lower lobe. 4. Focal atelectasis and pneumonia medially at the right lung base. 5. Scarring in the right upper lobe not changed from 10/13/2017. 6. Mild mediastinal adenopathy possibly reactive. 7. Old granulomatous disease. Chest X-Ray 04/27/21 08:55 IMPRESSION: Abnormal chest with interval change as above. Microbiology 04/24/21 16:06 Blood Blood Culture - Preliminary Streptococcus pneumoniae 04/24/21 16:06 Blood Blood Culture - Preliminary Streptococcus pneumoniae 04/25/21 04:40 Sputum - Expectorated Sputum Gram Stain - Final 04/25/21 04:40 Sputum - Expectorated Sputum Sputum Culture - Final 04/26/21 05:40 Blood Blood Culture - Preliminary NEGATIVE TO DATE 04/25/21 17:22 Blood Blood Culture - Preliminary NEGATIVE TO DATE 04/25/21 21:50 Urine,Voided Legionella Urinary Antigen - Final 04/25/21 21:50 Urine,Voided Bacterial Antigens - Final Echocardiogram: CONCLUSIONS Normal left ventricular size and systolic function, EF 56 %. No regional wall motion abnormalities. Mild biatrial enlargement Minimally thickened aortic and mitral valves. The right-sided chambers could not be visualized well There is no pericardial effusion. There are no intracardiac masses. No previous study is available for comparison. Dr Ranjeet Acosta MD [facility] (Electronically Signed) Final Date: 27 April 2021 20:28 S Vitals: Last Vital Signs Temp 97.8 F 04/28/21 10:31 Pulse 79 04/28/21 10:31 Resp 18 04/28/21 10:31 BP 131/84 04/28/21 10:31 Pulse Ox 96 04/28/21 10:31 Discharge Plan Discharge Patient Disposition: Home Condition: Stable Prescriptions: New aspirin 325 mg Tablet,Delayed Release (Dr/Ec) 325 mg PO DAILY 30 Days Qty: 30 RF: 0 benzonatate 100 mg Capsule 200 mg PO TID PRN (Reason: cough) 10 Days Qty: 14 RF: 0 Cardizem CD 180 mg capsule,extended release 24hr 180 mg PO Q24H 30 Days Qty: 30 RF: 0 famotidine 20 mg Tablet 20 mg PO BID 30 Days Qty: 60 RF: 0 Continued Breo Ellipta 100-25 mcg/dose blister with device 1 inh inhalation DAILY 30 Days Qty: 60 RF: 2 venlafaxine [Effexor XR] 37.5 mg capsule,extended release 24hr 37.5 mg PO DAILY RF: 0 albuterol sulfate [ProAir HFA] 90 mcg/actuation HFA aerosol inhaler 2 puff INHALATION Q6H PRN (Reason: Shortness Of Breath) RF: 0 Complete Multivitamin Tablet 1 tab PO DAILY RF: 0 trazodone 150 mg tablet 300 mg PO BEDTIME RF: 0 Discharge Orders: Discharge Order (Routine); Ordered 04/28/21 Ordered By: Harry Mina Referrals: Christiano Whitt, DO [Primary Care Provider] - 7-10 days Discharge Diet: Cardiac Discharge Activity: Resume usual activity Patient Instructions: Opioid Safety Activity Restrictions/Additional Instructions: Please continue IV antibiotics with ceftriaxone once daily for next 10 days. Please recheck BMP at the end of treatment. Take Cardizem 180 mg once a day daily. Aspirin 325 mg daily once a day. Please follow-up with your primary care provider within next 10 days. Discharge Attestations Time Spent in Discharge Care*: greater than 30 min Specific Discharge Activities: educating patient, discussing with pcp/other providers, discussing with rn field case manager/social workers/dc planners, documenting/other paperwork and evaluating patient/reviewing data Status at Discharge: Cognitive status at discharge: cognitively intact , Behavioral status at discharge: cooperative , Functional status at discharge: independent ambulation Overall status at discharge: patient is back to baseline Quality Metrics Clinical Quality Measures During this hospital stay, did patient experience: None Coding Level of Care Code Acute [facility] DC note Diagnoses Bacteremia due to Streptococcus R78.81; B95.5 Pneumonia J18.9 Paroxysmal atrial fibrillation with RVR I48.0 Close exposure to COVID-19 virus Z20.828 Asthma J45.909 Asthma severity: unspecified severity Essential (primary) hypertension I10 Leukocytosis D72.829
[2021-04-28] MEDS: cefTRIAXone 1,000 MG in sodium chloride 0.9% (plus) 50 ML 100 MG IV (11:55)
[2021-04-28 14:23] LABS: Coronavirus Test Green County Detected
[2021-04-28] MEDS: benzonatate 100 mg Capsule 200 MG PO (15:44)
--- NOTE | 2021-04-28 16:58 | PC.NURSE ---
education provided, outpatient infusions scheduled. no questions or concerns. VS sable upon departure
[2021-04-29 09:43] LABS: Erythrocyte Sedimentation Rate 34 mm/hr (0-10)
== END 2021-04-28 16:59 | disposition home or self-care (01) | DRG 193 ==
LOC: ER 13:29 → CSU 17:14
PROVIDERS: Admitting Provider Internal Medicine; Emergency Provider Family Medicine; PCP Emergency Medicine Emergency Medical Services; Visit Provider Student in an Organized Health Care Education/Training Program
DX: J15.9 Unspecified bacterial pneumonia (principal); U07.1 COVID-19; R78.81 Bacteremia; J90 Pleural effusion, not elsewhere classified; B95.3 Streptococcus pneumoniae as the cause of diseases classified elsewhere; I48.0 Paroxysmal atrial fibrillation; D72.829 Elevated white blood cell count, unspecified; J45.909 Unspecified asthma, uncomplicated; I10 Essential (primary) hypertension; E78.5 Hyperlipidemia, unspecified; F43.10 Post-traumatic stress disorder, unspecified; Z86.79 Personal history of other diseases of the circulatory system
CPT/HCPCS: 36415; 71045; 71275; 80053; 80061; 80202; 80500; 82550; 83036; 83540; 83550; 83735; 83880; 84439; 84443; 84484; 85007; 85025; 85610; 85651; 85730; 86140; 86403; 87040; 87070; 87077; 87205; 87426; 87449; 87635; 93005; 93306; 94640; 94664; 96365; 96366; 96367; 96372; 96375; 99285; J0696; J1160; J1650; J1956; J3370; J3475; J3490; J7030; J7040; J7611; J7626; Q9967

== ENCOUNTER 2021-05-08 10:30 | Outpatient (RCR) | payer OTHER, SELFPAY ==
--- NOTE | 2021-04-29 12:15 | PC.NURSE ---
Pt to OPS for Rocepin IV infusion for next 10 days. Pt positive for COVID. Placed in isolation room 12 in OPS. IV started to left forearm and to remain in place for infusions as ordered. Pt ambulatory with Sao2 98% on RA. No difficulty breathing or SOB. Tolerated infusion without difficulty.
[2021-04-29] MEDS: cefTRIAXone 1,000 MG in sodium chloride 0.9% (plus) 50 ML 100 MG IV (12:26)
[2021-04-29 12:29] VITALS: BP 120/79; PULSE 74; RESP 18; TEMP 36.9; O2SAT 94
[2021-04-30 12:10] VITALS: BP 141/82; PULSE 77; RESP 19; TEMP 36.2; O2SAT 96
[2021-04-30] MEDS: cefTRIAXone 1,000 MG in sodium chloride 0.9% (plus) 50 ML 100 MG IV (12:20)
[2021-05-01 12:10] VITALS: BP 125/78; PULSE 58; RESP 20; TEMP 37.2; O2SAT 97
[2021-05-01] MEDS: cefTRIAXone 1,000 MG in sodium chloride 0.9% (plus) 50 ML 100 MG IV (12:20)
[2021-05-02] MEDS: cefTRIAXone 1,000 MG in sodium chloride 0.9% (plus) 50 ML 100 MG IV (10:25)
[2021-05-02 10:39] VITALS: BP 150/80; PULSE 69; RESP 18; TEMP 36.6; O2SAT 95
[2021-05-03] MEDS: cefTRIAXone 1,000 MG in sodium chloride 0.9% (plus) 50 ML 100 MG IV (10:52)
[2021-05-03 11:01] VITALS: BP 138/76; PULSE 72; RESP 20; TEMP 36.7; O2SAT 97
[2021-05-04 11:55] VITALS: BP 143/84; PULSE 73; RESP 16; TEMP 36.9; O2SAT 95
[2021-05-04] MEDS: cefTRIAXone 1,000 MG in sodium chloride 0.9% (plus) 50 ML 100 MG IV (12:20)
[2021-05-05 12:00] VITALS: BP 148/74; PULSE 75; RESP 17; TEMP 36.6; O2SAT 97
[2021-05-05] MEDS: cefTRIAXone 1,000 MG in sodium chloride 0.9% (plus) 50 ML 100 MG IV (12:05)
[2021-05-06 07:08] VITALS: BP 124/82; PULSE 72; RESP 18; TEMP 36.3; O2SAT 93
[2021-05-06] MEDS: cefTRIAXone 1,000 MG in sodium chloride 0.9% (plus) 50 ML 100 MG IV (07:14)
[2021-05-07] MEDS: cefTRIAXone 1,000 MG in sodium chloride 0.9% (plus) 50 ML 100 MG IV (12:05)
[2021-05-07 12:21] VITALS: BP 135/83; PULSE 71; RESP 16; TEMP 36.6; O2SAT 96
[2021-05-08 10:30] VITALS: BP 137/89; PULSE 75; RESP 18; TEMP 36.8; O2SAT 97
[2021-05-08] MEDS: cefTRIAXone 1,000 MG in sodium chloride 0.9% (plus) 50 ML 100 MG IV (10:39)
== END 2021-05-15 23:59 | disposition home or self-care (01) ==
LOC: OPS 10:30
PROVIDERS: PCP Emergency Medicine Emergency Medical Services; Visit Provider Student in an Organized Health Care Education/Training Program
DX: R78.81 Bacteremia (principal)
CPT/HCPCS: 96365; J0696

== ENCOUNTER 2021-06-05 12:28 | Outpatient (CLI) | payer OTHER, SELFPAY ==
--- NOTE | 2021-06-05 12:40 | XR_ITS ---
WS: [id number] Exam: XR chest 2V* [id number] Date/Time of Exam: 06/05/2021 12:44 PM Reason For Exam: Pneumonia Comparison 04/24/2021. The lungs are fully expanded and clear. No pleural effusions. Mild left basal plaque atelectasis. Nor mal cardiomediastinal silhouette. Bony structures are unremarkable. XR/XR chest 2V* [id number] IMPRESSION: 1. No acute cardiopulmonary finding.
== END 2021-06-05 12:29 | disposition home or self-care (01) ==
LOC: RAD 12:38
PROVIDERS: PCP Emergency Medicine Emergency Medical Services; Visit Provider Internal Medicine Critical Care Medicine
DX: J18.9 Pneumonia, unspecified organism (principal)
CPT/HCPCS: 71046

== ENCOUNTER → 2021-11-05 09:08 | Outpatient (BNVA) | payer OTHER, SELFPAY | PROVIDERS: PCP Emergency Medicine Emergency Medical Services; Visit Provider Internal Medicine Critical Care Medicine | DX: J45.909 Unspecified asthma, uncomplicated (principal); I48.0 Paroxysmal atrial fibrillation; E78.5 Hyperlipidemia, unspecified; J18.9 Pneumonia, unspecified organism; I10 Essential (primary) hypertension; R91.1 Solitary pulmonary nodule | CPT/HCPCS: 99214 ==

== ENCOUNTER 2022-02-09 10:43 | Emergency (ER) | payer OTHER, SELFPAY ==
[2022-02-09] VITALS (8 sets, daily range): BP systolic 128–155; BP diastolic 60–90; PULSE 50–68; RESP 5–22; TEMP 36.5; O2SAT 95–99; BMI 27.0
--- NOTE | 2022-02-09 11:59 | CT_ITS ---
WS: [id number] CT HEAD NONCONTRAST HISTORY: headache TECHNIQUE: Contiguous axial imaging performed through the brain in 2.5 mm imaging. Bone and soft tiss ue windows. Sagittal and coronal reformats reviewed. All CT scans at [facility] use at least one of these dose optimization techniques: automated exposure control; mA and/or kV adjustment per pa tient size (includes targeted exams where dose is matched to clinical indication); or iterative recon struction. DLP: 1098.04 mGy.cm COMPARISON: None available. No acute intracranial hemorrhage, midline shift or mass effect. Very mild atrophy and small vessel ischemic disease. No prior infarcts. No inferior displacement of c erebellar tonsils. Ventricles: Normal size with no hydrocephalus. Paranasal sinuses: As visualized are clear. Mastoid air cells: Well pneumatized. Calvarium and scalp: Skull is intact with no soft tissue edema or swelling. CT/CT head wo con* [id number] IMPRESSION: 1. No acute intracranial hemorrhage or edema. 2. Very minimal atrophy and small vessel ischemic disease.
--- NOTE | 2022-02-09 12:01 | ED_ITS ---
HPI - Headache General: Chief Complaint: Headache Stated Complaint: Extreme pain across his head Time Seen by Provider: 02/09/22 11:17 Source: patient Mode of arrival: ambulatory History of Present Illness: 56-year-old male presents emergency room with complaints of sudden onset of headache at 9:30 PM and on the right side of his head radiating across to frontal region. It is decreased since its initial onset he still has her sense of pressure and lightheadedness. No vomiting. Initially had some photophobia that has resolved. Speech swallowing and gait were all normal. MD elicited complaint: headache Onset (ago): hour(s) Onset description: suddenly Location: right, frontal and temporal Quality & Timing: sharp Exacerbating factors: none Relieving factors: nothing Context: occurred at rest Associated symptoms: Reports lightheadedness; Deny chest pain, confusion, cough, diaphoresis, eye pain, eye redness, fever(s), loss of vision, malaise, nausea, neck stiffness, numbness, paresthesias, photophobia, pre-syncope, rash, seizures, short of breath, sound sensitivity, syncope, vomiting or weakness Treatments prior to arrival: none Review of Systems Const: Denies: fever(s), chills, malaise or diaphoresis ENMT: Denies: throat pain, ear or mastoid pain, nasal discharge or nasal congestion Card: Reports: lightheadedness; Denies: chest pain, syncope or pre-syncope Resp: Denies: dyspnea, productive cough or non-productive cough GI: Denies: nausea or vomiting : Denies: flank pain, dysuria, urinary frequency or urinary urgency Skin/Breast: Denies: rash Neuro: Denies: confusion PFSH ED PFSH: Medical History Asthma Chronic diarrhea Close exposure to COVID-19 virus Colitis Essential (primary) hypertension Gastritis Hyperlipemia Leukocytosis Lung nodule Major depressive disorder Pericarditis PTSD (post-traumatic stress disorder) Tailor's bunion of right foot Surgical History H/O eye surgery Family History Father CAD (coronary artery disease), Onset Age: 59 Sister Arrhythmia Family/Other CAD (coronary artery disease) Social History Smoking and tobacco status: never smoked Alcohol intake: current Alcohol intake frequency: few times a month Alcohol type: beer Lives independently: Yes Household members: significant other and family Marital status: Single service: Yes Current occupational status: employed Current occupation: [employer] [place] of recent travel: No Current gender identity: Male Physical Exam Const: GENERAL APPEARANCE: cooperative and comfortable ORIENTATION/CONSCIOUSNESS: Yes awake, Yes oriented to person, Yes oriented to place and Yes oriented to time HENMT: COMMON NORMALS: normocephalic, atraumatic, hearing grossly normal bilaterally, external ears normal, EAC's normal, TM's normal bilaterally, Normal nasal mucous membranes and turbinates present, moist oral mucous membranes and oropharynx normal HEAD & SCALP: normocephalic and atraumatic NOSE: Normal nasal mucous membranes and turbinates present EXTERNAL EAR: Yes external ears normal EXTERNAL AUDITORY CANAL: EAC's normal TYMPANIC MEMBRANE: TM's normal bilaterally Eye: COMMON NORMALS: Equal, round and reactive pupils present, EOMs intact bilaterally, conjunctivae normal and no scleral icterus CONJUNCTIVA: Yes conjunctivae normal PUPIL: Yes Equal, round and reactive pupils present DIRECT OPHTHALMOSCOPY: No photophobia Neck/C-Spine: COMMON NORMALS: full ROM, no lymphadenopathy, supple and no JVD Resp: COMMON NORMALS: normal respiratory effort, No retractions, No use of accessory muscles and clear to auscultation bilaterally AUSCULTATION: clear to auscultation bilaterally Cardio: COMMON NORMALS: no JVD, regular rate, regular rhythm and No murmurs present (Cardio) RATE: regular rate RHYTHM: regular rhythm GI: COMMON NORMALS: Soft to palpation and No hepatosplenomegaly present AUSCULTATION: Yes normoactive bowel sounds PALPATION: Yes Soft to palpation, No Tenderness to palpation present (GI), No Guarding due to palpation present (GI) and Yes No hepatosplenomegaly present Extremity: COMMON NORMALS: normal to inspection, capillary refill normal, no clubbing, cyanosis or edema, no calf tenderness and no pedal edema Neuro: SENSORIUM/ORIENTATION: Yes oriented to person, Yes oriented to place and Yes oriented to time Skin: COMMON NORMALS: no rashes or lesions noted GENERAL SKIN EXAM: no rashes or lesions noted Course Vital Signs: Vital signs: Vital Signs Temperature 97.7 F 02/09/22 10:50 Pulse Rate 55 L 02/09/22 15:00 Respiratory Rate 22 H 02/09/22 15:00 Blood Pressure 155/60 02/09/22 15:00 Pulse Oximetry 98 02/09/22 15:00 Oxygen Delivery Me thod 02/09/22 10:50 MDM - Headache Medical Decision Making Labs imaging and EKG reviewed. No significant findings patient's headache is improved discharge home follow-up with primary care return if has further problems. Also recommend following up to recheck blood pressure with primary within the week. Medical Records I reviewed the patient's medical records. Lab Data I reviewed the patient's lab results. : 02/09/22 11:20 02/09/22 11:[address] 02/09/22 11:59 IMPRESSION: 1. No acute intracranial hemorrhage or edema. 2. Very minimal atrophy and small vessel ischemic disease. Laboratory Results WBC 8.7 10^3/uL (4.0-10.0) 02/09/22 11:20 RBC 4.67 10^6/uL (4.1-5.3) 02/09/22 11:20 Hgb 14.3 g/dL (11.7-16.6) 02/09/22 11:20 Hct 42.3 % (42.0-52.0) 02/09/22 11:20 MCV 90.6 fl (80-94) 02/09/22 11:20 MCH 30.6 pg (28.0-34.0) 02/09/22 11:20 MCHC 33.8 g/dL (30.0-36.0) 02/09/22 11:20 RDW 12.5 % (12.1-15.1) 02/09/22 11:20 Plt Count 226 10^3/cmm (130-400) 02/09/22 11:20 MPV 10.9 fL (7.4-10.4) H 02/09/22 11:20 Neut % (Auto) 75.2 % 02/09/22 11:20 Lymph % (Auto) 11.3 % 02/09/22 11:20 [place] % (Auto) 7.9 % 02/09/22 11:20 Eos % (Auto) 4.5 % 02/09/22 11:20 Baso % (Auto) 0.6 % 02/09/22 11:20 Neut # (Auto) 6.58 10^3/uL (1.8-7.7) 02/09/22 11:20 Lymph # (Auto) 1.0 10^3/uL (0.8-4.8) 02/09/22 11:20 [place] # (Auto) 0.7 10^3/uL (0.2-0.9) 02/09/22 11:20 Eos # (Auto) 0.4 10^3/uL (0.0-0.8) 02/09/22 11:20 Baso # (Auto) 0.1 10^3/uL (0.0-0.1) 02/09/22 11:20 Nucleated RBC % (auto) 0 % 02/09/22 11:20 Nucleated RBCs # 0.0 /100WBC 02/09/22 11:20 Sodium 141 mmol/L (136-145) 02/09/22 11:20 Potassium 4.5 mmol/L (3.5-5.1) 02/09/22 11:20 Chloride 103 mmol/L (98-107) 02/09/22 11:20 Carbon Dioxide 30 mmol/L (22-29) H 02/09/22 11:20 Anion Gap 12.5 (5-19) 02/09/22 11:20 BUN 16 mg/dL (6-20) 02/09/22 11:20 Creatinine 1.1 mg/dL (0.7-1.2) 02/09/22 11:20 GFR Calculation 69.2 mL/min (90-130) L 02/09/22 11:20 Glucose 88 mg/dL (65-115) 02/09/22 11:20 Calculated Osmolality 293 mOsm/kg (285-295) 02/09/22 11:20 Calcium 9.6 mg/dL (8.5-10.5) 02/09/22 11:20 Total Bilirubin 0.3 mg/dL (0.15-1.2) 02/09/22 11:20 AST 22 U/L (0-40) 02/09/22 11:20 ALT 24 U/L (0-41) 02/09/22 11:20 Alkaline Phosphatase 115 U/L (40-130) 02/09/22 11:20 Total Protein 6.5 g/dL (6.6-8.7) L 02/09/22 11:20 Albumin 4.6 g/dL (3.5-5.2) 02/09/22 11:20 Globulin 1.9 g/dL (1.3-4.6) 02/09/22 11:20 Discharge Plan Discharge Patient Disposition: Home Clinical Impression: Headache, Elevated blood pressure reading Condition: Stable Prescriptions: No Action Breo Ellipta 100-25 mcg/dose blister with device 1 inh inhalation DAILY 30 Days Qty: 60 2RF venlafaxine [Effexor XR] 37.5 mg capsule,extended release 24hr 37.5 mg PO DAILY albuterol sulfate [ProAir HFA] 90 mcg/actuation HFA aerosol inhaler 2 puff INHALATION Q6H PRN (Reason: Shortness Of Breath) Complete Multivitamin Tablet 1 tab PO DAILY trazodone 150 mg tablet 300 mg PO BEDTIME cholecalciferol (vitamin D3) 25 mcg (1,000 unit) capsule 25 mcg PO DAILY ascorbic acid (vitamin C) [Vitamin C] 500 mg capsule, extended release 500 mg PO DAILY Qty: 14 0RF zinc 50 mg tablet 50 mg PO DAILY Qty: 14 0RF Discharge Orders: Discharge ED (Routine); Ordered 02/09/22 Ordered By: Christ Almanza Referrals: Christiano Whitt DO [Primary Care Provider] - Discharge Diet: Usual diet Discharge Activity: Increase activity as tolerated Patient Instructions: Opioid Safety, Pain Management Activity Restrictions/Additional Instructions: Follow-up to review your blood pressure with your primary care doctor in outpatient setting. Coding Level of Care Code ED Developmental Writing Instructor for Anandg Fwd Exam Problem Focused
--- NOTE | 2022-02-09 12:13 | ECG_ITS ---
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 Measurements Intervals [place] Rate: 63 P: 66 NH: 222 QRS: 108 QRSD: 103 T: 19 QT: 430 QTc: 442 Interpretive Statements SINUS RHYTHM WITH SINUS ARRHYTHMIA WITH FIRST DEGREE AV BLOCK RIGHT AXIS DEVIATION [QRS AXIS > 100] NONSPECIFIC T-WAVE ABNORMALITY Compared to ECG 04/24/2021 18:57:28 First degree AV block now present Right-axis deviation now present T-wave abnormality now present Atrial fibrillation no longer present Electronically Signed On 02-09-2022 12:17:09 CDT by Yoselin Oswald M.D. [email or web address] [email or web address] regional [email or web address] Media Entertainmentmar[facility] [email or web address]/store/OM/[id number]
[2022-02-09 12:15] LABS: Basophils # 0.1 10^3/uL (0.0-0.1); Basophils % 0.6 %; Eosinophils # 0.4 10^3/uL (0.0-0.8); Eosinophils % 4.5 %; Hematocrit 42.3 % (42.0-52.0); Hemoglobin 14.3 g/dL (11.7-16.6); Lymphocytes % 11.3 %; Mean Corpuscular HGB Conc 33.8 g/dL (30.0-36.0); Mean Corpuscular Hemoglobin 30.6 pg (28.0-34.0); Mean Corpuscular Volume 90.6 fl (80-94); Mean Platelet Volume 10.9 fL (7.4-10.4); Monocytes # 0.7 10^3/uL (0.2-0.9); Monocytes % 7.9 %; Neutrophils # 6.58 10^3/uL (1.8-7.7); Neutrophils % 75.2 %; Nucleated Red Blood Cells % 0 %; Platelet Count 226 10^3/cmm (130-400); Red Blood Count 4.67 10^6/uL (4.1-5.3); Red Cell Distribution Width 12.5 % (12.1-15.1); White Blood Count 8.7 10^3/uL (4.0-10.0)
[2022-02-09 12:28] LABS: Alanine Aminotransferase 24 U/L (0-41); Albumin Level 4.6 g/dL (3.5-5.2); Alkaline Phosphatase 115 U/L (40-130); Anion Gap 12.5 (5-19); Aspartate Amino Transferase 22 U/L (0-40); Blood Urea Nitrogen 16 mg/dL (6-20); Calcium 9.6 mg/dL (8.5-10.5); Carbon Dioxide 30 mmol/L (22-29); Chloride 103 mmol/L (98-107); Globulin 1.9 g/dL (1.3-4.6); Glomerular Filtration Rate 69.2 mL/min (90-130); Glucose 88 mg/dL (65-115); Osmolality Calculated 293 mOsm/kg (285-295); Potassium 4.5 mmol/L (3.5-5.1); Sodium 141 mmol/L (136-145); Total Bilirubin 0.3 mg/dL (0.15-1.2); Total Protein 6.5 g/dL (6.6-8.7)
[2022-02-09] MEDS: ketorolac 30 mg/mL INJ IVP (13:00)
[2022-02-09] MEDS: promethazine 25 mg/mL SDV 1 mL IM (13:00)
== END 2022-02-09 15:12 | disposition home or self-care (01) ==
PROVIDERS: Emergency Provider Family Medicine; PCP Emergency Medicine Emergency Medical Services
DX: R51.9 Headache, unspecified (principal); I10 Essential (primary) hypertension
CPT/HCPCS: 70450; 80053; 85025; 93005; 96372; 96374; 99285; J1885; J2550

== ENCOUNTER → 2022-09-30 15:11 | Outpatient (BNVA) | payer OTHER, SELFPAY | PROVIDERS: PCP Emergency Medicine Emergency Medical Services; Referring Provider Family Medicine; Visit Provider Student in an Organized Health Care Education/Training Program | DX: S52.602A Unspecified fracture of lower end of left ulna, initial encounter for closed fracture (principal); W21.07XA Struck by softball, initial encounter | CPT/HCPCS: 73090 ==

== ENCOUNTER 2022-09-30 16:04 | Outpatient (CLI) | payer OTHER, SELFPAY | END 2022-09-30 16:05 | disposition home or self-care (01) | LOC: SPT 16:04 | PROVIDERS: PCP Emergency Medicine Emergency Medical Services; Visit Provider Student in an Organized Health Care Education/Training Program | DX: Z46.89 Encounter for fitting and adjustment of other specified devices (principal); S52.692D Other fracture of lower end of left ulna, subsequent encounter for closed fracture with routine healing; X58.XXXD Exposure to other specified factors, subsequent encounter | CPT/HCPCS: 25600; 97760; 99204; L3982 ==

== ENCOUNTER → 2022-11-04 13:20 | Outpatient (BNVA) | payer OTHER, SELFPAY | PROVIDERS: PCP Emergency Medicine Emergency Medical Services; Visit Provider Student in an Organized Health Care Education/Training Program | DX: S52.602A Unspecified fracture of lower end of left ulna, initial encounter for closed fracture (principal); X58.XXXA Exposure to other specified factors, initial encounter | CPT/HCPCS: 73110 ==

== ENCOUNTER 2022-11-04 15:17 | Outpatient (CLI) | payer OTHER, SELFPAY | END 2022-11-04 15:18 | disposition home or self-care (01) | LOC: SPT 15:17 | PROVIDERS: PCP Emergency Medicine Emergency Medical Services; Visit Provider Student in an Organized Health Care Education/Training Program | DX: Z46.89 Encounter for fitting and adjustment of other specified devices (principal); S52.692D Other fracture of lower end of left ulna, subsequent encounter for closed fracture with routine healing; X58.XXXD Exposure to other specified factors, subsequent encounter | CPT/HCPCS: 97760; 99213; L3908 ==

== ENCOUNTER → 2022-11-24 11:29 | Outpatient (BNVA) | payer OTHER, SELFPAY | PROVIDERS: PCP Emergency Medicine Emergency Medical Services; Visit Provider Internal Medicine Cardiovascular Disease | DX: I48.0 Paroxysmal atrial fibrillation (principal); E78.5 Hyperlipidemia, unspecified | CPT/HCPCS: 99213 ==

== ENCOUNTER 2022-12-07 10:12 | Inpatient (IN) | payer OTHER, SELFPAY ==
[2022-12-07] VITALS (57 sets, daily range): BP systolic 95–148; BP diastolic 63–96; PULSE 80–130; RESP 1–37; TEMP 36.9–37.8; O2SAT 88–98; BMI 30.1
--- NOTE | 2022-12-07 10:44 | XRR_ITS ---
PROCEDURE INFORMATION: Exam: XR Chest Exam date and time: 12/07/2022 10:50 AM Age: 57 years old Clinical indication: Pain; Angina pectoris; Additional info: Chest pain TECHNIQUE: Imaging protocol: Radiologic exam of the chest. Views: 1 view. COMPARISON: CR XR chest 2V* [id number] 06/05/2021 12:46 PM FINDINGS: Lungs: Right lower lobe airspace opacity suggestive of pneumonia. Pleural spaces: Unremarkable. No pleural effusion. No pneumothorax. Heart/Mediastinum: Unremarkable. No cardiomegaly. Bones/joints: Unremarkable. XR/XR chest 1V portable [id number] IMPRESSION: Right lower lobe airspace opacity. Findings are suggestive of pneumonia. Follow-up to resolution is recommended
--- NOTE | 2022-12-07 10:48 | ECG_ITS ---
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 Measurements Intervals [place] Rate: 137 P: 0 [place]: 0 QRS: 90 QRSD: 94 T: 72 QT: 290 QTc: 439 Interpretive Statements ATRIAL FIBRILLATION WITH RAPID VENTRICULAR RESPONSE Compared to ECG 02/09/2022 12:13:12 Sinus rhythm no longer present Sinus arrhythmia no longer present First degree AV block no longer present Right-axis deviation no longer present T-wave abnormality no longer present Electronically Signed On 12-07-2022 17:32:14 CDT by Daniel Ochoa M.D. [email or web address] [employer] [email or web address]/[id number] rani
[2022-12-07 11:04] LABS: Basophils # 0.1 10^3/uL (0.0-0.1); Basophils % 0.3 %; Hematocrit 47.9 % (42.0-52.0); Hemoglobin 16.3 g/dL (11.7-16.6); Lymphocytes # 0.6 10^3/uL (0.8-4.8); Lymphocytes % 1.5 %; Mean Corpuscular Volume 91.2 fl (80-94); Mean Platelet Volume 10.4 fL (7.4-10.4); Monocytes # 1.8 10^3/uL (0.2-0.9); Monocytes % 4.9 %; Neutrophils # 33.35 10^3/uL (1.8-7.7); Neutrophils % 90.4 %; Nucleated Red Blood Cells % 0 %; Platelet Count 266 10^3/cmm (130-400); Red Blood Count 5.25 10^6/uL (4.1-5.3); Red Cell Distribution Width 14.3 % (12.1-15.1)
[2022-12-07] MEDS: aspirin 81 mg Chew Tablet 324 MG PO (11:05)
--- NOTE | 2022-12-07 11:06 | ED_ITS ---
HPI - Chest Pain General: Chief Complaint: Chest Pain Stated Complaint: Chest pain Time Seen by Provider: 12/07/22 10:17 Source: patient Mode of arrival: ambulatory History of Present Illness: 57-year-old male presents emergency room with complaint of chest discomfort and rapid heart rate and palpitations. He has had this intermittently since yesterday. He has no known history of atrial fibrillation. He is not on any anticoagulants or negative Golden tropes. Denies any recent new medications. He did receive aspirin Zofran sublingual and topical nitro in route his chest discomfort is slightly improved but still present. On arrival at the bedside to see him he is noted to be in A-fib with RVR. ARELLANO complaint: chest pain Onset (ago): day(s) Onset: during rest Pain location: substernal and left chest Severity: mild Relieving factors: rest Exacerbating factors: exertion Associated symptoms: Deny abdominal pain, diaphoresis, dyspnea, fever(s), leg edema, nausea, palpitations, sense of impending doom, syncope or vomiting Review of Systems Const: Denies: fever(s) or diaphoresis Card: Denies: palpitations or syncope Resp: Denies: dyspnea GI: Denies: abdominal pain, nausea or vomiting : Denies: dysuria, urinary frequency or urinary urgency Musc: Denies: neck pain or back pain PFSH ED PFSH: Medical History Asthma Chronic diarrhea Close exposure to COVID-19 virus Colitis Essential (primary) hypertension Gastritis Hyperlipemia Leukocytosis Lung nodule Major depressive disorder Pericarditis PTSD (post-traumatic stress disorder) Tailor's bunion of right foot Surgical History H/O eye surgery Family History Father CAD (coronary artery disease), Onset Age: 59 Sister Arrhythmia Family/Other CAD (coronary artery disease) Social History Smoking and tobacco status: never smoked Alcohol intake: current Alcohol intake frequency: few times a month Alcohol type: beer Substance/Drug Use: never Lives independently: Yes Household members: significant other and family Marital status: Single service: Yes Current occupational status: employed 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 Do you think of yourself as: Straight/Heterosexual Current gender identity: Male Physical Exam Const: GENERAL APPEARANCE: cooperative and comfortable ORIENTATION/CONSCIOUSNESS: Yes awake, Yes oriented to person, Yes oriented to place and Yes oriented to time HENMT: COMMON NORMALS: normocephalic, atraumatic and hearing grossly normal bilaterally HEAD & SCALP: normocephalic and atraumatic Resp: COMMON NORMALS: normal respiratory effort, No retractions, No use of accessory muscles and clear to auscultation bilaterally AUSCULTATION: clear to auscultation bilaterally Cardio: COMMON NORMALS: No murmurs present (Cardio) RATE: tachycardic RHYTHM: abnormal rhythm irregularly irregular GI: COMMON NORMALS: Soft to palpation and No hepatosplenomegaly present AUSCULTATION: Yes normoactive bowel sounds PALPATION: Yes Soft to palpation, No Tenderness to palpation present (GI), No Guarding due to palpation present (GI) and Yes No hepatosplenomegaly present Extremity: COMMON NORMALS: normal to inspection, capillary refill normal, no clubbing, cyanosis or edema, no calf tenderness and no pedal edema Neuro: SENSORIUM/ORIENTATION: Yes oriented to person, Yes oriented to place and Yes oriented to time Skin: COMMON NORMALS: no rashes or lesions noted GENERAL SKIN EXAM: no rashes or lesions noted Course Vital Signs: Vital signs: Vital Signs Temperature 97.6 F 12/10/22 07:39 Pulse Rate 66 12/10/22 09:32 Respiratory Rate 16 12/10/22 07:57 Blood Pressure 147/89 12/10/22 07:39 Pulse Oximetry 96 12/10/22 10:15 Oxygen Delivery Me thod Room Air 12/10/22 07:57 Oxygen Flow Rate 30 12/09/22 11:26 Fraction of Inspir ed Oxygen 30 12/09/22 16:00 MDM - Chest Pain Medical Decision Making Patient had similar presentation several years ago with A-fib with a markedly elevated white count. Does appear to have pneumonia sputum and blood cultures antibiotics discussed with hospitalist orders written. Does not meet criteria for septic shock. Medical Records I reviewed the patient's medical records. Lab Data I reviewed the patient's lab results. 12/10/22 04:15 12/10/22 04:15 Radiology Impressions Chest CTA 12/07/22 13:03 IMPRESSION: 1. No CT findings to indicate pulmonary embolus. 2. Infiltrate with consolidation and partial air bronchograms lower right lung and lung base mid to posteriorly and within the posterior left lung base. Findings suggest pneumonia. Follow-up chest radiograph with treatment. 3. Chronic changes otherwise when correlated with 2020 exam as noted above. Chest X-Ray 12/07/22 19:05 IMPRESSION: Opacity or partially consolidated infiltrate lower right lung with trace effusion along with small amount of left basilar opacity and/or atelectasis. Findings suggest pneumonia, with similar appearance to exam earlier same date. Laboratory Results WBC 37.0 10^3/uL (4.0-10.0) H* 12/07/22 10:00 RBC 5.25 10^6/uL (4.1-5.3) 12/07/22 10:00 Hgb 16.3 g/dL (11.7-16.6) 12/07/22 10:00 Hct 47.9 % (42.0-52.0) 12/07/22 10:00 MCV 91.2 fl (80-94) 12/07/22 10:00 MCH 31.0 pg (28.0-34.0) 12/07/22 10:00 MCHC 34.0 g/dL (30.0-36.0) 12/07/22 10:00 RDW 14.3 % (12.1-15.1) 12/07/22 10:00 Plt Count 266 10^3/cmm (130-400) 12/07/22 10:00 MPV 10.4 fL (7.4-10.4) 12/07/22 10:00 Neut % (Auto) 90.4 % 12/07/22 10:00 Lymph % (Auto) 1.5 % 12/07/22 10:00 [place] % (Auto) 4.9 % 12/07/22 10:00 Eos % (Auto) 0.0 % 12/07/22 10:00 Baso % (Auto) 0.3 % 12/07/22 10:00 Neut # (Auto) 33.35 10^3/uL (1.8-7.7) H 12/07/22 10:00 Lymph # (Auto) 0.6 10^3/uL (0.8-4.8) L 12/07/22 10:00 [place] # (Auto) 1.8 10^3/uL (0.2-0.9) H 12/07/22 10:00 Eos # (Auto) 0.0 10^3/uL (0.0-0.8) 12/07/22 10:00 Baso # (Auto) 0.1 10^3/uL (0.0-0.1) 12/07/22 10:00 Nucleated RBC % (auto) 0 % 12/07/22 10:00 Nucleated RBCs # 0.0 /100WBC 12/07/22 10:00 PT 13.80 SECONDS (12.1-14.9) 12/07/22 10:00 INR 1.03 (0.8-1.2) 12/07/22 10:00 APTT 27.0 SECONDS (23.9-36.7) 12/07/22 10:00 Fibrinogen 516 mg/dL (174-498) H 12/07/22 10:00 Fibrin Degrad Products ug/mL (NEG) 12/07/22 10:00 D-Dimer 0.31 ug/mIFEU (0-0.59) 12/07/22 10:00 Specimen Type Arterial 12/07/22 13:26 Sample Site Radial, left 12/07/22 13:26 ABG pH 7.48 (7.35-7.45) H 12/07/22 13:26 ABG pCO2 36.2 mmHg (35-45) 12/07/22 13:26 ABG pO2 53.3 mmHg (80.0-100.0) L 12/07/22 13:26 ABG HCO3 26.7 mmol/L (22-26) H 12/07/22 13:26 ABG Base Excess 3.3 mmol/L (-2.0-2.0) H 12/07/22 13:26 Ronny Test Pos 12/07/22 13:26 Hematocrit 48.3 % (42-52) 12/07/22 13:26 O2 Delivery Device Room air 12/07/22 13:26 FiO2 21.0 % 12/07/22 13:26 Motor Builder Assembler ID [place] 12/07/22 13:26 Sodium 138 mmol/L (136-145) 12/07/22 10:00 Potassium 4.1 mmol/L (3.5-5.1) 12/07/22 10:00 Chloride 95 mmol/L (98-107) L 12/07/22 10:00 Carbon Dioxide 25 mmol/L (22-29) 12/07/22 10:00 Anion Gap 22.1 (5-19) H 12/07/22 10:00 BUN 18 mg/dL (6-20) 12/07/22 10:00 Creatinine 1.5 mg/dL (0.7-1.2) H 12/07/22 10:00 GFR Calculation 48.2 mL/min (90-130) L 12/07/22 10:00 Glucose 119 mg/dL (65-115) H 12/07/22 10:00 Estimat Average Glucose 94 12/07/22 10:00 Hemoglobin A1c 4.9 % (4.0-6.0) 12/07/22 10:00 Calculated Osmolality 289 mOsm/kg (285-295) 12/07/22 10:00 Lactic Acid 2.5 mmol/L (0.5-2.2) H 12/07/22 13:44 Lactic Acid (Sepsis) Cancelled 12/07/22 13:44 Calcium 9.3 mg/dL (8.5-10.5) 12/07/22 10:00 Magnesium 1.7 mg/dL (1.7-2.3) 12/07/22 10:00 Total Bilirubin 0.9 mg/dL (0.15-1.2) 12/07/22 10:00 AST 32 U/L (0-40) 12/07/22 10:00 ALT 31 U/L (0-41) 12/07/22 10:00 Alkaline Phosphatase 101 U/L (40-130) 12/07/22 10:00 Troponin T Baseline 21 ng/L (0-15) H 12/07/22 10:00 Troponin T 120 Minute 22.08 ng/L (0-15) H 12/07/22 12:08 Delta Troponin T 1.08 ABS# (0-10) 12/07/22 12:08 C-Reactive Protein 124.2 mg/L (0.0-4.9) H 12/07/22 10:00 NT-Pro-B Natriuret Pep 349 pg/mL (0-125) H 12/07/22 10:00 Total Protein 6.5 g/dL (6.6-8.7) L 12/07/22 10:00 Albumin 5.0 g/dL (3.5-5.2) 12/07/22 10:00 Globulin 1.5 g/dL (1.3-4.6) 12/07/22 10:00 Triglycerides 46 mg/dL (0-150) 12/07/22 10:00 Cholesterol 182 mg/dL (0-200) 12/07/22 10:00 LDL Cholesterol, Calc 115 mg/dL (50-129) 12/07/22 10:00 HDL Cholesterol 58 mg/dL (60-100) L 12/07/22 10:00 LDL/HDL Ratio 1.98 RATIO (0.00-3.22) 12/07/22 10:00 Cholesterol/HDL Ratio 3.14 mg/dL (1.0-5.00) 12/07/22 10:00 Procalcitonin 2.51 ng/mL (0-0.5) H 12/07/22 10:00 TSH 1.92 uIU/mL (0.27-4.20) 12/07/22 10:00 Hepatitis A IgM Ab Non-reactive (Nonreactive) 12/07/22 10:00 Hep Bs Antigen Non-reactive (Nonreactive) 12/07/22 10:00 Hep B Core IgM Ab Non-reactive (Nonreactive) 12/07/22 10:00 Hepatitis C Antibody Non-reactive (Nonreactive) 12/07/22 10:00 HIV 1&2 Ab & HIV 1 Ag Non-reactive (Non-Reactiv) 12/07/22 10:00 HIV 1&2 Antibody Non-reactive (Non-Reactiv) 12/07/22 10:00 Discharge Plan Discharge Patient Disposition: Admitted As Inpatient Admit Provider: Jeffrey Hector Clinical Impression: Atrial fibrillation with RVR, Chest pain at rest, Pneumonia, Sepsis Condition: Stable Discharge Diet: Cardiac Discharge Activity: Resume usual activity Coding Level of Care Code ED State Highway Police Officer for Tahir Gloria
[2022-12-07] MEDS: dilTIAZem 5 mg/mL SDV 5 mL 20 MG IVP (11:10)
[2022-12-07] MEDS: dilTIAZem 100 MG in sodium chloride 0.9% (add-van) 100 ML 10 MG IV (11:11)
[2022-12-07 11:20] LABS: Alanine Aminotransferase 31 U/L (0-41); Alkaline Phosphatase 101 U/L (40-130); Anion Gap 22.1 (5-19); Aspartate Amino Transferase 32 U/L (0-40); Blood Urea Nitrogen 18 mg/dL (6-20); Calcium 9.3 mg/dL (8.5-10.5); Carbon Dioxide 25 mmol/L (22-29); Chloride 95 mmol/L (98-107); Globulin 1.5 g/dL (1.3-4.6); Glomerular Filtration Rate 48.2 mL/min (90-130); Glucose 119 mg/dL (65-115); Osmolality Calculated 289 mOsm/kg (285-295); Potassium 4.1 mmol/L (3.5-5.1); Sodium 138 mmol/L (136-145); Total Bilirubin 0.9 mg/dL (0.15-1.2); Total Protein 6.5 g/dL (6.6-8.7)
[2022-12-07 11:21] LABS: Troponin(5th) Baseline 21 ng/L (0-15)
--- NOTE | 2022-12-07 11:25 | PC.PHAR ---
Addendum entered by Nicolette Bedoya 12/07/22 13:49: VERIFIED MEDICATIONS WITH PATIENT. [facility]ILL [facility]ING ON [facility] Original Note: [facility] IS [facility] FAXED FOR MEDICATION LIST 11:25 AM
--- NOTE | 2022-12-07 11:45 | ECG_ITS ---
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 Measurements Intervals [place] Rate: 104 P: 0 NH: 0 QRS: 89 QRSD: 104 T: 102 QT: 302 QTc: 398 Interpretive Statements ATRIAL FIBRILLATION WITH RAPID VENTRICULAR RESPONSE INCOMPLETE RIGHT BUNDLE BRANCH BLOCK [90+ ms QRS DURATION, TERMINAL R IN V1/V2, 40+ ms S IN I/aVL/V4/V5/V6] Compared to ECG 12/07/2022 10:48:20 Incomplete right bundle-branch block now present Electronically Signed On 12-07-2022 17:38:43 CDT by Daniel Ochoa M.D. [email or web address].[email or web address]/store/OM/[id number]
[2022-12-07 11:48] LABS: Slide Review Slide Review Perform
[2022-12-07] MEDS: piperacillin-tazobactam 3.375 GM in sodium chloride 0.9% (plus) 50 ML IV (12:09)
[2022-12-07 12:41] LABS: Troponin 5 2HR 22.08 ng/L (0-15)
[2022-12-07 12:43] LABS: Lactic Sepsis W/Reflex 2.8 mmol/L (0.5-2.2)
[2022-12-07 12:44] LABS: Troponin 5 2HR Delta 1.08 ABS# (0-10)
[2022-12-07 12:49] LABS: Fibrinogen 516 mg/dL (174-498)
[2022-12-07 12:52] LABS: D Dimer 0.31 ug/mIFEU (0-0.59)
[2022-12-07 12:59] LABS: Procalcitonin 2.51 ng/mL (0-0.5); Thyroid Stimulating Hormone 1.92 uIU/mL (0.27-4.20)
--- NOTE | 2022-12-07 13:00 | ECG_ITS ---
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 Measurements Intervals [place] Rate: 99 P: 59 [place]: 193 QRS: 119 QRSD: 98 T: 90 QT: 308 QTc: 395 Interpretive Statements SINUS RHYTHM POSSIBLE RIGHT VENTRICULAR HYPERTROPHY [SOME/ALL OF: PROMINENT R IN V1, LATE TRANSITION, RAD, FERMIN, SSS] SEPTAL MYOCARDIAL INFARCTION , OF INDETERMINATE AGE [40+ ms Q WAVE IN V1/V2] Compared to ECG 12/07/2022 11:45:35 Myocardial infarct finding now present Atrial fibrillation no longer present Incomplete right bundle-branch block no longer present Electronically Signed On 12-07-2022 14:37:01 CDT by Daniel Ochoa M.D. [id number]
--- NOTE | 2022-12-07 13:03 | CTR_ITS ---
PROCEDURE INFORMATION: Exam: CTA Chest With Contrast Exam date and time: 12/07/2022 2:53 PM Age: 57 years old Clinical indication: Shortness of breath; Additional info: SOB TECHNIQUE: Imaging protocol: Computed tomographic angiography of the chest with contrast. Exam focused on the arteries. 3D rendering (Not supervised by radiologist): MIP and/or 3D reconstructed images were created by the technologist. Radiation optimization: All CT scans at this facility use at least one of these dose optimization techniques: automated exposure control; mA and/or kV adjustment per patient size (includes targeted exams where dose is matched to clinical indication); or iterative reconstruction. Contrast material: OMNI 350; Contrast volume: 100 ml; Contrast route: INTRAVENOUS (IV); REPORTING DATA: Count of CT and Cardiac NM exams in prior 12 months: This patient has received [address] and 0 known cardiac nuclear medicine studies in the 12 months prior to the current study. COMPARISON: CT angio chest PE protcl [id number] 04/25/2021 8:53 PM RADIATION DOSE METRICS: Total DLP (mGy-cm): 423.82 FINDINGS: Pulmonary arteries: Unremarkable. No pulmonary emboli. Aorta: Mild prominence of the ascending thoracic aorta at 3.8 cm chronic with 202 exam. No findings of dissection. Lungs: Lung windows demonstrate scarring with nodular/masslike appearance in the right lung apex that appears unchanged 2021 exam. Opacity or consolidated infiltrate is seen in the lower right lung and lung base with partial air bronchograms. Partially consolidated infiltrate is seen within the left lung base posteriorly with partial air bronchograms. Findings suggest pneumonia within the lower lungs, [id number]-[id number]-left. Pleural spaces: No pneumothorax. No significant pleural effusion. Mild nonspecific posterior pleural thickening and or trace effusion bilaterally. Heart: No cardiomegaly. No pericardial effusion. Chronic right pericardial calcification with 202 exam. Lymph nodes: A few mildly prominent mediastinal lymph nodes, though without interval worsening from 2021 exam. Bones/joints: Suggestion of benign hemangioma involving the T9 vertebra unchanged from 202 exam. Soft tissues: Unremarkable. CT/CT angio chest PE protcl [id number] IMPRESSION: 1. No CT findings to indicate pulmonary embolus. 2. Infiltrate with consolidation and partial air bronchograms lower right lung and lung base mid to posteriorly and within the posterior left lung base. Findings suggest pneumonia. Follow-up chest radiograph with treatment. 3. Chronic changes otherwise when correlated with 2020 exam as noted above.
--- NOTE | 2022-12-07 13:03 | USCV_ITS ---
Charles Looney Age: 57 Gender: M : 1965 Exam Date: 12/07/2022 14:06 Ordering Phys: Jeffrey Hector MD Technologist: Vazquez Puga Exam Location: [facility] [place] Indication: fever ? septic BP: 142 / 77 HR: 102 Rhythm: Sinus Technical Quality: Adequate MEASUREMENTS (Male / Female) Normal Values 2D ECHO LV Diastolic Diameter PLAX 3.3 cm 4.2 - 5.9 / 3.9 - 5.3 cm LV Systolic Diameter PLAX 2.7 cm IVS Diastolic Thickness 1.0 cm 0.6 - 1.0 / 0.6 - 0.9 cm IVS Systolic Thickness 1.3 cm LVPW Diastolic Thickness 0.8 cm 0.6 - 1.0 / 0.6 - 0.9 cm LVPW Systolic Thickness 1.3 cm LVOT Diameter 2.1 cm LV Ejection Fraction 2D Teich 30.6 % LV Ejection Fraction MOD 2C 47.8 % LV Ejection Fraction 2C AL 47.8 % LA Diameter 3.9 cm IVC Diameter 1.5 cm M-MODE Aortic Annulus Diameter 3.5 cm LA Ao Ratio MM 1.1 MV E Point Septal Separation 0.7 cm DOPPLER AV Peak Velocity 179.0 cm/s LVOT Peak Velocity 131.0 cm/s AV Area Cont Eq vti 2.9 cm squared AV Area Cont Eq pk 2.6 cm squared MV Area PHT 5.0 cm squared Mitral E to A Ratio 1.6 MV E' Velocity 56.0 cm/s Mitral E to MV E' Ratio 6.2 Mitral E to LV E' Lateral Ratio 5.3 Mitral E to LV E' Septal Ratio 7.6 TR Peak Velocity 143.7 cm/s TR Peak Gradient 8.3 mmHg TV Peak E Velocity 108.0 cm/s Right Atrial Pressure 3.0 mmHg Pulmonary Artery Systolic Pressu 11.3 mmHg RV Acceleration Time 0.1 s FINDINGS Left Ventricle Left ventricle is normal in size. LV systolic function is normal with EF of 55 to 60%. No regional wall motion abnormalities Right Ventricle Normal in size and function Right Atrium Grossly nmorla Left Atrium Normal in size Mitral Valve Grossly normal Aortic Valve Grossly normal. No significant stenosis or regurgitation. Tricuspid Valve Not well visualized. Trace tricuspid regurgitation. Pulmonary artery systolic pressure is normal. Pulmonic Valve Not well-visualized Pericardium Normal Aorta Normal in size IVC Appears to be normal CONCLUSIONS Technically limited quality echocardiogram because of poor ultrasonic windows. LV systolic function is normal with EF of 55-60% Visualized valvular structures are grossly normal. Trace tricuspid regurgitation Accurate comparison with prior study not possible because of limited visualization. Daniel Ochoa MD (Electronically Signed) Final Date: 08 December 2022 11:53 S
--- NOTE | 2022-12-07 13:09 | PM.HP ---
Providers/Chief Complaint Primary Care Provider: Christiano Whitt DO Chief Complaint: Chest pain History of Present Illness Charles Looney is a 57 year old male with a past medical history of atrial fibrillation, not on anticoagulation, history of asthma, history of COVID-19, history of pneumococcal pneumonia who presents to [facility] due to a 12-hour history of fevers, chills, fatigue, malaise, chest pain, pleurisy, shortness of breath. 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 His symptoms persisted throughout the night so he came to emergency room for evaluation. He tells me that similar symptoms happen roughly 2 years ago when he had pneumococcal pneumonia. No recent travel, no sick contacts, denies smoking, no IV drug use, no history immunocompromise state, he is concerned as every time he gets a pneumonia he gets high leukocytosis he is not exactly sure why, Review of Systems Const: Reports: fever(s), chills, body aches, fatigue and malaise Eyes: Denies: change in vision ENMT: Denies: throat pain Card: Reports: chest pain Resp: Reports: dyspnea GI: Denies: abdominal pain or nausea : Denies: flank pain or difficulty urinating Musc: Denies: neck pain or back pain Skin/Breast: Denies: rash Neuro: Denies: headache(s) Psych: Denies: anxiety Endo: Denies: polyuria or polydipsia Shady/Lymph: Denies: easy bruising Medications/Allergies Home Medications Medication Instructions Recorded Confirmed Last Taken Type albuterol sulfate 90 mcg/actuation 2 puff inhalation Q6H PRN 08/08/19 12/07/22 05/06/21 History aerosol inhaler (ProAir HFA) Shortness Of Breath trazodone 150 mg tablet 300 mg PO BEDTIME 08/08/19 12/07/22 12/06/22 History venlafaxine 37.5 mg 37.5 mg PO DAILY 03/20/21 12/07/22 12/06/22 History capsule,extended release 24 hr (Effexor XR) ascorbic acid (vitamin C) 500 mg 500 mg PO DAILY #14 caps 04/28/21 12/07/22 12/06/22 Rx capsule,extended release (Vitamin C) cholecalciferol (vitamin D3) 25 25 mcg PO DAILY 11/05/21 12/07/22 12/06/22 History mcg (1,000 unit) capsule fast form cock up splint #1 ea 09/30/22 12/07/22 Unknown Rx cock up splint #1 ea 11/04/22 12/07/22 Unknown Rx magnesium 250 mg tablet 250 mg PO DAILY 12/07/22 12/07/22 12/06/22 History multivitamin 1 tab PO DAILY 12/07/22 12/07/22 12/06/22 History zinc acetate 50 mg (zinc) capsule 50 mg PO DAILY 12/07/22 12/07/22 12/06/22 History Allergies Allergy/AdvReac Type Severity Reaction Status Date / Time No Known Allergies Allergy Verified 11/24/22 07:32 PFSH Acute PFSH: Medical History Asthma Chronic diarrhea Close exposure to COVID-19 virus Colitis Essential (primary) hypertension Gastritis Hyperlipemia Leukocytosis Lung nodule Major depressive disorder Pericarditis PTSD (post-traumatic stress disorder) Tailor's bunion of right foot Surgical History H/O eye surgery Family History Father CAD (coronary artery disease), Onset Age: 59 Sister Arrhythmia Family/Other CAD (coronary artery disease) Social History Smoking and tobacco status: never smoked Alcohol intake: current Alcohol intake frequency: few times a month Alcohol type: beer Substance/Drug Use: never Lives independently: Yes Household members: significant other and family Marital status: Single service: Yes Current occupational status: employed Current occupation: [employer] Do you think of yourself as: Straight/Heterosexual Current gender identity: Male Vitals/I&O/Wt Last Vital Signs Temp 98.4 F 12/07/22 10:46 Pulse 93 12/07/22 12:30 Resp 25 H 12/07/22 12:30 BP 100/75 12/07/22 12:30 Pulse Ox 93 12/07/22 12:30 O2 Del Method Nasal Cannula 12/07/22 11:18 O2 Flow Rate 1 12/07/22 12:30 12/06/22 12/07/22 12/07/22 22:59 06:59 14:59 Intake Total 12.167 / 12.167 Balance 12.167 / 12.167 Weight last 48 hrs Weight 89.811 kg Physical Exam Const: COMMON NORMALS: no acute distress and patient oriented x3 GENERAL APPEARANCE: cooperative, well kempt and well developed HENMT: COMMON NORMALS: normocephalic and Normal external nose present HEAD & SCALP: normocephalic FACE & SINUS: normal facial exam NOSE: Normal external nose present Eye: COMMON NORMALS: Equal, round and reactive pupils present, EOMs intact bilaterally and conjunctivae normal CONJUNCTIVA: Yes conjunctivae normal Neck/C-Spine: COMMON NORMALS: full ROM, no meningeal signs, no JVD and Thyroid normal THYROID: Thyroid normal Lymph: LYMPHATIC: no lymphadenopathy noted Chest: COMMONS NORMALS: normal inspection of the chest Resp: COMMON NORMALS: normal respiratory effort, No retractions and No use of accessory muscles AUSCULTATION: wheezes Cardio: COMMON NORMALS: regular rate, regular rhythm, S1 normal heart sound present, S2 normal heart sound present, No murmurs present (Cardio) and Peripheral pulses 2+ throughout RATE: regular rate RHYTHM: regular rhythm HEART SOUNDS: S1 normal heart sound present and S2 normal heart sound present PERIPHERAL PULSES: Peripheral pulses 2+ throughout GI: COMMON NORMALS: Normal to inspection, nondistended, normoactive bowel sounds present, Soft to palpation and non-tender PALPATION: Yes Soft to palpation : BLADDER/KIDNEY EXAM: Yes no CVA tenderness Back/Pelvis: COMMON NORMALS: no CVA tenderness Extremity: COMMON NORMALS: normal to inspection, full ROM, capillary refill normal, no calf tenderness and no pedal edema Neuro: COMMON NORMALS: patient oriented x3, CN's II-XII intact bilaterally, moves all extremities, no focal motor deficits and no sensory deficits noted MENINGEAL SIGNS: Yes no meningeal signs Psych: COMMON NORMALS: mental status grossly normal, Normal thought process present, cooperative and speech normal APPEARANCE: Yes well kempt SPEECH: Yes normal speech THOUGHT PROCESS: Normal thought process present Skin: COMMON NORMALS: turgor normal and no jaundice GENERAL SKIN EXAM: turgor normal Data 12/07/22 10:00 12/07/22 10:00 A&P Assessment and plan (1) Pneumonia: (2) Hyperlipemia: Qualifiers: Hyperlipidemia type: unspecified Qualified Code(s): E78.5 - Hyperlipidemia, unspecified (3) Sepsis: (4) GENARO (acute kidney injury): (5) Atrial fibrillation with RVR: (6) Chest pain: (7) Lactic acidosis: (8) Metabolic acidosis: Plan Sepsis -Sepsis criteria met, with lactic acidosis, elevated troponins, leukocytosis, febrile, source of infection pneumonia, A-fib with RVR -Sepsis bolus given in the emergency room Pneumonia -Sputum cultures, blood cultures, urine bacterial antigens -Has received Zosyn in the emergency room -MRSA nares, vancomycin -Cefepime -CT angiogram of the chest -Pro-Zeeshan 2.51, CRP 124 -Monitor respiratory status closely -DuoNeb treatment A-fib with RVR -Continue Cardizem drip -chasvasc 0 lactic acidosis -sepsis, pna GENARO -sepsis -genaro, ivf Metabolic acidosis -sepsis -ivf chest pain/nstemi -serial ekg, serial troponin -aspirin, atorvastatin -cardizem drip full code lovenox dvt prophylaxis Attestations Medical Necessity Statement*: Patient requires hospitalization, inpatient, greater than 2 midnights for pneumonia, A-fib with RVR, leukocytosis, GENARO, lactic acidosis, sepsis Diagnoses Pneumonia J18.9 Hyperlipemia E78.5 Hyperlipidemia type: unspecified Sepsis A41.9 GENARO (acute kidney injury) N17.9 Atrial fibrillation with RVR I48.91 Chest pain R07.9 Lactic acidosis E87.20 Metabolic acidosis E87.20
[2022-12-07 13:10] LABS: C Reactive Protein 124.2 mg/L (0.0-4.9); Magnesium 1.7 mg/dL (1.7-2.3)
[2022-12-07 13:25] LABS: INR 1.03 (0.8-1.2)
--- NOTE | 2022-12-07 13:28 | PC.PHAR ---
Patient: Floor: Age: 57 yo Serum creatinine: 1.5 mg/dL Height: 67.7 Inches Weight (kg): 89 IBW (kg): 67.71 Dosing wt(kg): 89 Estimated Creatinine clearance (ml/min): 52.0 CRCL method: Cockcroft and Gault using ibw(default). Drug selected: Vancomycin Loading dose (mg): Vd (liters): 62.3 (factor used: 0.7 L/kg) Sathya (hr-1): 0.048 Half life (hrs): 14.44 CLvanco=?? 2.990 L/hr Recommended dose: 1500 mg Interval: 18 hrs Infusion time (hrs): 1 Predicted peak (mcg/mL): 40.6 Predicted trough (mcg/mL): 17.95 Total body weight is being used for vancomycin dosing. Recommendations: Give Vancomycin 1500 mg q 18 hrs with an expected Cpeak of 40.6 mcg/ml and an expected Ctrough of 17.95 mcg/ml AUC 0-24 /CINDY Data: CINDY 0.5 mcg/mL:?? AUC/CINDY:? 1337.8 CINDY 1.0 mcg/mL:?? AUC/CINDY:? 668.9 --------- CINDY 1.5 mcg/mL:?? AUC/CINDY:? 445.9 CINDY 2.0 mcg/mL:?? AUC/CINDY:? 334.4 Renal dosing of other antibiotics (review renal dosing of other medications and list guidelines here): Thank you for the consult, will continue to follow. Signature: Jimmy Gibson, MaggiD
[2022-12-07 13:37] LABS: ABG PCO2 36.2 mmHg (35-45); ABG PH Result 7.48 (7.35-7.45); Arterial Blood Gas Hematocrit 48.3 % (42-52); Base Excess ABG 3.3 mmol/L (-2.0-2.0); Blood Gas Allen Test Pos; Blood Gas Operator Identificat WALCI; Blood Gas Sample Site Radial, left; Blood Gas Sample Type Arterial; HCO3 ABG 26.7 mmol/L (22-26); Oxygen Device ROOM AIR; PO2 ABG 53.3 mmHg (80.0-100.0)
[2022-12-07 13:46] LABS: Estmated Average Glucose 94; Hemoglobin A1C 4.9 % (4.0-6.0)
[2022-12-07] MEDS: pantoprazole 40 mg SDV IVP (13:48)
[2022-12-07] MEDS: enoxaparin 40 mg/0.4 mL Syringe SUBCUT (13:49)
[2022-12-07 13:50] LABS: Chol HDL Ratio 3.14 mg/dL (1.0-5.00); Cholesterol 182 mg/dL (0-200); HDL Cholesterol 58 mg/dL (60-100); LDL Cholesterol Calculated 115 mg/dL (50-129); LDL HDL Ratio 1.98 RATIO (0.00-3.22); Triglycerides 46 mg/dL (0-150)
[2022-12-07 13:57] LABS: Hepatitis A Antibody IgM Non-Reactive (Nonreactive); Hepatitis B Core IgM Non-Reactive (Nonreactive); Hepatitis B Surface Antigen Non-Reactive (Nonreactive); Hepatitis C Virus Antibody Non-Reactive (Nonreactive)
[2022-12-07 13:58] LABS: NT Pro B Type Natriuretic Pept 349 pg/mL (0-125)
[2022-12-07 14:14] LABS: Lactic Sepsis W/Reflex 2.5 mmol/L (0.5-2.2)
[2022-12-07 14:14] LABS: HIV 1 & 2 Antibody Non-Reactive (Non-Reactiv); HIV 1 & 2 Antigen Non-Reactive (Non-Reactiv)
[2022-12-07 14:19] LABS: Reflex Lactate Order REFLEX LACTIC ORDERD
[2022-12-07] MEDS: iohexol 350 mg/mL 500 mL Btl (per mL) IV (14:56)
[2022-12-07] MEDS: ipratropium-albuterol 3 mL Neb INHALATION ×2 (15:38→20:26)
[2022-12-07 15:42] LABS: Reflex Lactate Order REFLEX LACTIC ORDERD
--- NOTE | 2022-12-07 16:03 | PC.NURSE ---
Charles comes to [facility] from the ED at 1555.
[2022-12-07] MEDS: vancomycin 1,500 MG/300 ML PIGGYBACK 200 MG IV (16:16)
--- NOTE | 2022-12-07 16:46 | ECG_ITS ---
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 Measurements Intervals [place] Rate: 100 P: 48 WI: 195 QRS: 117 QRSD: 93 T: 57 QT: 322 QTc: 417 Interpretive Statements SINUS TACHYCARDIA POSSIBLE RIGHT VENTRICULAR HYPERTROPHY [SOME/ALL OF: PROMINENT R IN V1, LATE TRANSITION, RAD, FERMIN, SSS] Compared to ECG 12/07/2022 14:27:02 Sinus rhythm no longer present Myocardial infarct finding no longer present Electronically Signed On 12-07-2022 17:37:24 CDT by Daniel Ochoa M.D. [id number]
[2022-12-07 18:02] LABS: Add Urine Microscopic? NO; Charge for UA Resulting for Rev
[2022-12-07 18:07] LABS: Glucose Urine UA 2+ (Normal); Protein Urine Neg (Negative); Specific Gravity, Urine 1.015 (1.005-1.030); Urine Appearance Clear (CLEAR); Urine Color Dark Yellow (Yellow); pH Urine 6 (5-7)
[2022-12-07 18:08] LABS: Bilirubin Urine Neg (Negative); Blood Urine Neg (Negative); Ketones Urine 1+ (Negative); Leukocyte Esterase Urine Negative (Negative); Nitrate Urine Negative (Negative); Urobilinogen Urine Norm (Negative)
[2022-12-07 18:27] LABS: Troponin 5 6HR 23.89 ng/L (0-15)
[2022-12-07 18:33] LABS: Troponin 5 6HR Delta 2.89 ng/L (0-12)
--- NOTE | 2022-12-07 18:59 | ECG_ITS ---
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 Measurements Intervals [place] Rate: 98 P: 0 LA: 0 QRS: 93 QRSD: 95 T: 0 QT: 323 QTc: 414 Interpretive Statements ATRIAL FIBRILLATION BORDERLINE RIGHT AXIS DEVIATION [QRS AXIS > 90] NONSPECIFIC T-WAVE ABNORMALITY ABNORMAL RHYTHM ECG Compared to ECG 12/07/2022 16:46:06 T-wave abnormality now present Sinus tachycardia no longer present Atrial abnormality no longer present Electronically Signed On 12-07-2022 23:30:27 CDT by Daniel Ochoa M.D. [id number]
--- NOTE | 2022-12-07 19:05 | XRR_ITS ---
PROCEDURE INFORMATION: Exam: XR Chest Exam date and time: 12/07/2022 7:19 PM Age: 57 years old Clinical indication: Shortness of breath; Additional info: SOB TECHNIQUE: Imaging protocol: Radiologic exam of the chest. Views: 1 view. COMPARISON: CR XR chest 1V portable [id number] 12/07/2022 10:50 AM FINDINGS: Tubes, catheters and devices: Overlying monitor leads. Lungs: Opacity seen in the lower right lung and small amount of opacity and/or atelectasis left lung base. Trace effusion on the right. No pneumothorax. Pleural spaces: See Lungs finding. Heart/Mediastinum: Unremarkable. No cardiomegaly. Bones/joints: Visualized osseous structures show no acute abnormality. Other findings: Findings are similar in appearance to exam earlier same date. XR/XR chest 1V portable [id number] IMPRESSION: Opacity or partially consolidated infiltrate lower right lung with trace effusion along with small amount of left basilar opacity and/or atelectasis. Findings suggest pneumonia, with similar appearance to exam earlier same date.
[2022-12-07] MEDS: morphine 4 mg/mL SDV 1 mL 1 MG IVP (19:07)
--- NOTE | 2022-12-07 19:07 | PC.NURSE ---
Patient complains of sudden onset severe SOB, right sided pleural pain, decreased air movement on right side, patient is diaphoretic. Physician notified, received orders for ekg, ABG, portable chest xray.
--- NOTE | 2022-12-07 19:28 | PC.NURSE ---
Patient rang call light and said that he is having shortness of breath. He said that he [id number] he was sweaty, more short of breath, and pain on the right side of his chest. An EKG was done. Dr. Hector was called and quickly came to the room. His vitals were stable. Patient was given a dose of morphine. He is resting comfortably now.
[2022-12-07] MEDS: cefepime 1,000 MG in sodium chloride 0.9% (plus) 50 ML 100 MG IV (20:02)
--- NOTE | 2022-12-07 21:36 | P.PNCC_ITS ---
Critical Care Event Note Received call from nurse stating patient having respiratory distress requiring up to 15 L of oxygen supplementation through nonrebreather and saturation being maintained at high 80s. Examination patient in respiratory distress though lying comfortably in bed on 15 of IV Cardizem drip with heart rate running in 90s with systolic blood pr essure of 132. ABG reviewed showing pH of 7.49, PCO2 32.5, PO2 of 61 on 15 L nonrebreather. Patient having minimal urine output. CTA done earlier in the day appreciated. Assessment: ARDS secondary to combination of pneumonia leading to reactive airway disease, congestive heart failure in setting of atrial fibrillation with rapid ventricular response. Plan: Switch to heated high flow. Been keeping saturation around 90%. IV Lasix 40 mg one-time. Croft catheterization. Pulmicort twice daily, ipratropium, Xopenex every 6 hours. Start on dexamethasone 6 mg IV daily. Wean Cardizem drip keeping heart rate around 70-90. The high probability of a clinically significant, sudden or life threatening deterioration of the patient's [respiratory, cardiac] system(s) required my full and direct attention, intervention and personal management. The critical care time is as shown. This time is in addition to time spent performing any reported procedures but includes the following: [x] Data and vital sign review and interpretation [x] Patient assessment, examination and intervention [x] Documentation [x] Medication orders and management Critical Care Time Code activated: No Critical Care Time (min): 60 Coding Level of Care Code Critical Care Other Coding Information ABG reviewed, management of respiratory failure Time Spent (min) 60
[2022-12-07] MEDS: atorvastatin 40 mg Tablet PO (21:39)
[2022-12-07] MEDS: trazodone 150 mg Tablet 300 MG PO (21:39)
[2022-12-07] MEDS: FUROsemide 10 mg/mL SDV 4mL 40 MG IVP (22:03)
[2022-12-07] MEDS: dexamethasone 10 mg/mL INJ 6 MG IVP (22:03)
[2022-12-07] MEDS: dilTIAZem 100 MG in sodium chloride 0.9% (add-van) 100 ML 12.5 MG IV (23:29)
[2022-12-08] VITALS (18 sets, daily range): BP systolic 114–147; BP diastolic 75–90; PULSE 66–97; RESP 15–25; TEMP 36.2–37.6; O2SAT 90–97
[2022-12-08] MEDS: levalbuterol 0.63 mg/3 mL Neb INHALATION ×6 (00:55→20:55)
[2022-12-08] MEDS: ipratropium 0.5 mg/2.5 mL Neb INHALATION ×6 (00:55→20:55)
[2022-12-08 01:52] LABS: ABG PCO2 32.5 mmHg (35-45); ABG PH Result 7.49 (7.35-7.45); Alveolar-Arterial Oxygen Gradi 6.2 mmHg (5-10); Blood Gas Allen Test Pos; Blood Gas Sample Site Radial, left; Blood Gas Sample Type Arterial; Carboxyhemoglobin 1.9 %THgb (0.4-20.1); HCO3 ABG 24.8 mmol/L (22-26); HGB O2 Sat 91.9 % (95-100); Ionized Calcium Level - ABG 1.1 mmol/L (1.1-1.4); Methemoglobin 0.4 % (0.4-1.5); Oxygen Device NC; Oxygen Saturation ABG 94.2; Potassium Level - ABG 3.7 mmol/L (3.5-5.0)
[2022-12-08 05:16] LABS: Basophils % 0.2 %; Hematocrit 40.4 % (42.0-52.0); Hemoglobin 13.7 g/dL (11.7-16.6); Lymphocytes # 0.4 10^3/uL (0.8-4.8); Lymphocytes % 1.7 %; Mean Corpuscular HGB Conc 33.9 g/dL (30.0-36.0); Mean Corpuscular Hemoglobin 30.7 pg (28.0-34.0); Mean Corpuscular Volume 90.6 fl (80-94); Mean Platelet Volume 10.2 fL (7.4-10.4); Monocytes % 3.9 %; Neutrophils # 23.59 10^3/uL (1.8-7.7); Neutrophils % 92.3 %; Nucleated Red Blood Cells % 0 %; Platelet Count 193 10^3/cmm (130-400); Red Blood Count 4.46 10^6/uL (4.1-5.3); Red Cell Distribution Width 14.6 % (12.1-15.1); White Blood Count 25.5 10^3/uL (4.0-10.0)
[2022-12-08 05:46] LABS: Alanine Aminotransferase 30 U/L (0-41); Albumin Level 4.1 g/dL (3.5-5.2); Alkaline Phosphatase 83 U/L (40-130); Anion Gap 16.9 (5-19); Aspartate Amino Transferase 30 U/L (0-40); Blood Urea Nitrogen 14 mg/dL (6-20); Calcium 8.5 mg/dL (8.5-10.5); Carbon Dioxide 26 mmol/L (22-29); Chloride 99 mmol/L (98-107); Globulin 1.5 g/dL (1.3-4.6); Glomerular Filtration Rate 52.2 mL/min (90-130); Glucose 148 mg/dL (65-115); Magnesium 1.8 mg/dL (1.7-2.3); Osmolality Calculated 289 mOsm/kg (285-295); Phosphorus 2.5 mg/dL (2.5-4.5); Potassium 3.9 mmol/L (3.5-5.1); Sodium 138 mmol/L (136-145); Total Bilirubin 0.7 mg/dL (0.15-1.2); Total Protein 5.6 g/dL (6.6-8.7)
[2022-12-08 05:47] LABS: Slide Review Slide Review Perform
[2022-12-08] MEDS: cefepime 1,000 MG in sodium chloride 0.9% (plus) 50 ML 100 MG IV ×2 (05:54→17:28)
[2022-12-08] MEDS: budesonide 0.5 mg/2 mL Neb INHALATION ×3 (07:30→20:55)
[2022-12-08] MEDS: vancomycin 1,500 MG/300 ML PIGGYBACK 200 MG IV (08:29)
[2022-12-08] MEDS: venlafaxine ER (24HR) 37.5 mg Capsule PO (08:30)
[2022-12-08] MEDS: aspirin 81 mg EC Tablet PO (08:30)
[2022-12-08 09:31] LABS: Adenovirus Not Detected (NOT DETECT); Chlamydia Pneumoniae Not Detected (NOT DETECT); Coronavirus 229E,HKU1,NL63,OC4 Not Detected (NOT DETECT); Human Metapneumovirus Not Detected (NOT DETECT); Human Rhinovirus/Enterovirus Not Detected (NOT DETECT); Influenza A Not Detected (NOT DETECT); Influenza A H1 Not Detected (NOT DETECT); Influenza A H1-2009 Not Detected (NOT DETECT); Influenza A H3 Not Detected (NOT DETECT); Influenza B Not Detected (NOT DETECT); Mycoplasma Pneumoniae Not Detected (NOT DETECT); Parainfluenza Virus Type 1 Not Detected (NOT DETECT); Parainfluenza Virus Type 2 Not Detected (NOT DETECT); Parainfluenza Virus Type 3 Not Detected (NOT DETECT); Parainfluenza Virus Type 4 Not Detected (NOT DETECT); Respiratory Syncytial Virus A Not Detected (NOT DETECT); Respiratory Syncytial Virus B Not Detected (NOT DETECT); SARS-COV-2 Not Detected (NOT DETECT)
[2022-12-08] MEDS: dilTIAZem 60 mg Tablet PO ×3 (09:48→20:28)
--- NOTE | 2022-12-08 13:33 | P.PN_ITS ---
Subjective Subjective: Patient converted to normal sinus rhythm early evening, currently in normal sinus rhythm, rate well controlled, he was transitioned to heated high flow, now down to 35% 35 L he denies any chest pain, no palpitations, still feels short of breath, Vitals/I&O/Wt Last Vital Signs Temp 97.2 F L 12/08/22 08:00 Pulse 81 12/08/22 11:53 Resp 22 H 12/08/22 11:53 BP 128/78 12/08/22 11:53 Pulse Ox 90 12/08/22 11:53 O2 Del Method Room Air 12/08/22 11:53 O2 Flow Rate 30 12/08/22 11:23 FiO2 30 12/08/22 11:23 12/07/22 12/08/22 12/08/22 22:59 06:59 14:59 Intake Total 3492.163 / 3554.330 39.167 / 3593.497 51.958 / 51.958 Output Total 400 / 400 1300 / 1300 Balance 3492.163 / 3554.330 -360.833 / 3193.497 -1248.042 / -1248.042 Weight last 48 hrs Weight 89.811 kg Physical Exam Const: COMMON NORMALS: no acute distress and patient oriented x3 Resp: COMMON NORMALS: normal respiratory effort, No retractions, No use of accessory muscles and clear to auscultation bilaterally AUSCULTATION: clear to auscultation bilaterally Cardio: COMMON NORMALS: regular rate, regular rhythm, S1 normal heart sound present and S2 normal heart sound present RATE: regular rate RHYTHM: regular rhythm HEART SOUNDS: S1 normal heart sound present and S2 normal heart sound present GI: COMMON NORMALS: Normal to inspection, nondistended, normoactive bowel sounds present and non-tender Extremity: COMMON NORMALS: no pedal edema Neuro: COMMON NORMALS: patient oriented x3 Psych: COMMON NORMALS: mental status grossly normal Urinary Catheter Management: Coude: Cath Placed During This Visit: yes Urinary Catheter Date of Insertion: 12/08/22 Urinary Catheter Time of Insertion: 00:53 Data 12/08/22 04:25 12/08/22 04:25 Micro: Microbiology 12/07/22 15:19 Bacterial Antigens - Final Urine,Clean Catch 12/07/22 13:44 Blood Culture - Preliminary Blood SPECIMEN COLLECTED 12/07/22 13:42 Blood Culture - Preliminary Blood SPECIMEN COLLECTED A&P Assessment and plan (1) Pneumonia: (2) Hyperlipemia: Qualifiers: Hyperlipidemia type: unspecified Qualified Code(s): E78.5 - Hyperlipidemia, unspecified (3) Sepsis: (4) GENARO (acute kidney injury): (5) Atrial fibrillation with RVR: (6) Chest pain: (7) Lactic acidosis: (8) Metabolic acidosis: Plan Sepsis, resolving -Sepsis criteria met, with lactic acidosis, elevated troponins, leukocytosis, febrile, source of infection pneumonia, A-fib with RVR Pneumonia -Sputum cultures, blood cultures, urine bacterial antigens -Has received Zosyn in the emergency room -MRSA nares, vancomycin -Cefepime -CT angiogram of the chest negative for pulm embolism 2. Infiltrate with consolidation and partial air bronchograms lower right lung and lung base mid to posteriorly and within the posterior left lung base.? Findings suggest pneumonia.? Follow-up chest radiograph with treatment. -Pro-Zeeshan 2.51, CRP 124 -Monitor respiratory status closely -DuoNeb treatment A-fib with RVR -Continue p.o. Cardizem -chasvasc 0 lactic acidosis -sepsis, pna GENARO -sepsis -genaro, ivf Metabolic acidosis -sepsis -ivf chest pain/nstemi -serial ekg, serial troponin -aspirin, atorvastatin -P.o. Cardizem full code lovenox dvt prophylaxis Plan for today transition to p.o. Cardizem, wean oxygen, continue broad-spectrum antibiotic therapy, follow cultures Attestations Medical Necessity Statement*: Patient requires hospitalization for pneumonia, A-fib, GENARO Diagnoses Pneumonia J18.9 Hyperlipemia E78.5 Hyperlipidemia type: unspecified Sepsis A41.9 GENARO (acute kidney injury) N17.9 Atrial fibrillation with RVR I48.91 Chest pain R07.9 Lactic acidosis E87.20 Metabolic acidosis E87.20
[2022-12-08] MEDS: pantoprazole 40 mg SDV IVP (13:39)
[2022-12-08] MEDS: enoxaparin 40 mg/0.4 mL Syringe SUBCUT (13:39)
[2022-12-08] MEDS: dexamethasone 10 mg/mL INJ 6 MG IVP (20:28)
[2022-12-08] MEDS: atorvastatin 40 mg Tablet PO (20:28)
[2022-12-08] MEDS: trazodone 150 mg Tablet 300 MG PO (20:28)
[2022-12-09] VITALS (14 sets, daily range): BP systolic 135–155; BP diastolic 78–96; PULSE 58–91; RESP 16–24; TEMP 36.4–36.7; O2SAT 93–97
[2022-12-09] MEDS: levalbuterol 0.63 mg/3 mL Neb INHALATION ×6 (01:13→20:20)
[2022-12-09] MEDS: ipratropium 0.5 mg/2.5 mL Neb INHALATION ×6 (01:13→20:20)
--- NOTE | 2022-12-09 02:15 | PC.NURSE ---
Patient's current heart rate 54-[address] Mina. Received order to change cardizem 60mg PO from every 6 hours to QID. RBVO
[2022-12-09] MEDS: vancomycin 1,500 MG/300 ML PIGGYBACK 200 MG IV ×2 (02:25→20:23)
[2022-12-09 03:02] LABS: Basophils % 0.1 %; Eosinophils % 0.1 %; Hematocrit 40.2 % (42.0-52.0); Hemoglobin 13.4 g/dL (11.7-16.6); Lymphocytes # 0.6 10^3/uL (0.8-4.8); Lymphocytes % 2.8 %; Mean Corpuscular HGB Conc 33.3 g/dL (30.0-36.0); Mean Corpuscular Hemoglobin 30.7 pg (28.0-34.0); Mean Platelet Volume 10.4 fL (7.4-10.4); Monocytes # 0.6 10^3/uL (0.2-0.9); Monocytes % 2.9 %; Neutrophils # 18.39 10^3/uL (1.8-7.7); Nucleated Red Blood Cells % 0 %; Platelet Count 201 10^3/cmm (130-400); Red Blood Count 4.37 10^6/uL (4.1-5.3); Red Cell Distribution Width 14.6 % (12.1-15.1); White Blood Count 19.8 10^3/uL (4.0-10.0)
[2022-12-09 03:28] LABS: Alanine Aminotransferase 38 U/L (0-41); Albumin Level 4.2 g/dL (3.5-5.2); Alkaline Phosphatase 86 U/L (40-130); Anion Gap 16.4 (5-19); Aspartate Amino Transferase 32 U/L (0-40); Blood Urea Nitrogen 18 mg/dL (6-20); Calcium 8.7 mg/dL (8.5-10.5); Carbon Dioxide 24 mmol/L (22-29); Chloride 102 mmol/L (98-107); Globulin 1.8 g/dL (1.3-4.6); Glucose 195 mg/dL (65-115); Magnesium 2.3 mg/dL (1.7-2.3); Osmolality Calculated 293 mOsm/kg (285-295); Phosphorus 2.4 mg/dL (2.5-4.5); Potassium 4.4 mmol/L (3.5-5.1); Sodium 138 mmol/L (136-145); Total Bilirubin 0.4 mg/dL (0.15-1.2)
[2022-12-09] MEDS: cefepime 1,000 MG in sodium chloride 0.9% (plus) 50 ML 100 MG IV ×2 (05:00→17:14)
[2022-12-09] MEDS: budesonide 0.5 mg/2 mL Neb INHALATION ×2 (07:26→20:20)
[2022-12-09] MEDS: FUROsemide 10 mg/mL SDV 2mL 20 MG IVP (09:15)
[2022-12-09] MEDS: dilTIAZem 60 mg Tablet PO ×4 (09:15→20:23)
[2022-12-09] MEDS: aspirin 81 mg EC Tablet PO (09:15)
[2022-12-09] MEDS: venlafaxine ER (24HR) 37.5 mg Capsule PO (09:15)
[2022-12-09] MEDS: pantoprazole 40 mg SDV IVP (14:13)
[2022-12-09] MEDS: enoxaparin 40 mg/0.4 mL Syringe SUBCUT (14:13)
--- NOTE | 2022-12-09 17:24 | P.PN_ITS ---
Subjective Subjective: Patient was seen this morning, he tells me he feels significantly better, still some degree of shortness of breath with exertion no fevers overnight Vitals/I&O/Wt Last Vital Signs Temp 98.0 F 12/09/22 16:00 Pulse 68 12/09/22 16:00 Resp 21 H 12/09/22 16:00 BP 155/88 12/09/22 16:00 Pulse Ox 94 12/09/22 16:00 O2 Del Method Room Air 12/09/22 16:00 O2 Flow Rate 30 12/09/22 11:26 FiO2 30 12/09/22 16:00 12/09/22 12/09/22 12/09/22 06:59 14:59 22:59 Intake Total 350 / 2029.958 840 / 840 Balance 350 / -2270.042 840 / 840 Physical Exam Const: COMMON NORMALS: no acute distress and patient oriented x3 Resp: COMMON NORMALS: normal respiratory effort, No retractions, No use of accessory muscles and clear to auscultation bilaterally AUSCULTATION: clear t o auscultation bilaterally Cardio: COMMON NORMALS: regular rate, regular rhythm, S1 normal heart sound present and S2 normal heart sound present RATE: regular rate RHYTHM: regular rhythm HEART SOUNDS: S1 normal heart sound present and S2 normal heart sound present GI: COMMON NORMALS: Normal to inspection, nondistended, normoactive bowel sounds present and non-tender Extremity: COMMON NORMALS: no pedal edema Neuro: COMMON NORMALS: patient oriented x3 Psych: COMMON NORMALS: mental status grossly normal Urinary Catheter Management: Coude: Cath Placed During This Visit: yes, but has since been removed by the nurse Reason for Continuing Indwelling Catheter: Accurate Measurement of Urinary Output in Critically Ill Patients Urinary Catheter Date of Insertion: 12/08/22 Urinary Catheter Time of Insertion: 00:53 Date Urinary Catheter Removed: 12/08/22 Time Urinary Catheter Discontinued: 14:47 Data 12/09/22 02:40 12/09/22 02:40 Micro: Microbiology 12/07/22 20:30 MRSA Culture - Final Nose 12/07/22 13:44 Blood Culture - Preliminary Blood NEGATIVE TO DATE 12/07/22 13:42 Blood Culture - Preliminary Blood NEGATIVE TO DATE A&P Assessment and plan (1) Pneumonia: (2) Hyperlipemia: Qualifiers: Hyperlipidemia type: unspecified Qualified Code(s): E78.5 - Hyperlipidemia, unspecified (3) Sepsis: (4) GENARO (acute kidney injury): (5) Atrial fibrillation with RVR: (6) Chest pain: (7) Lactic acidosis: (8) Metabolic acidosis: Plan Sepsis, resolving -Sepsis criteria met, with lactic acidosis, elevated troponins, leukocytosis, febrile, source of infection pneumonia, A-fib with RVR Pneumonia -Sputum cultures, blood cultures, urine bacterial antigens -vancomycin -Cefepime -CT angiogram of the chest negative for pulm embolism 2. Infiltrate with consolidation and partial air bronchograms lower right lung and lung base mid to posteriorly and within the posterior left lung base.? Findings suggest pneumonia.? Follow-up chest radiograph with treatment. -Pro-Zeeshan 2.51, CRP 124 -Monitor respiratory status closely -DuoNeb treatment A-fib with RVR -Continue p.o. Cardizem -chasvasc 0 lactic acidosis -sepsis, pna GENARO -sepsis -genaro, ivf Metabolic acidosis -sepsis -ivf chest pain/nstemi -serial ekg, serial troponin -aspirin, atorvastatin -P.o. Cardizem full code lovenox dvt prophylaxis Plan for today transition to p.o. Cardizem, wean oxygen, continue broad-spectrum antibiotic therapy, follow cultures Attestations Medical Necessity Statement*: patient needs hospitalization for pna Diagnoses Pneumonia J18.9 Hyperlipemia E78.5 Hyperlipidemia type: unspecified Sepsis A41.9 GENARO (acute kidney injury) N17.9 Atrial fibrillation with RVR I48.91 Chest pain R07.9 Lactic acidosis E87.20 Metabolic acidosis E87.20
[2022-12-09 20:08] LABS: Vancomycin Trough 5.6 ug/mL (10-15)
[2022-12-09] MEDS: dexamethasone 10 mg/mL INJ 6 MG IVP (20:22)
[2022-12-09] MEDS: atorvastatin 40 mg Tablet PO (20:23)
[2022-12-09] MEDS: trazodone 150 mg Tablet 300 MG PO (20:23)
--- NOTE | 2022-12-09 22:33 | PC.PHAR ---
Pharmacokinetic dosing service Date: 12/09/2022 Time: 2232 Patient: Charles Looney Floor: 106-1 Weight: 89.811 Kilograms Vancomycin single level analysis: Current dose being given: 1500 mg Current dosing interval: q18 hrs Current infusion time (hrs): 1.5 Single level Trough Data: Trough level obtained: 5.6 mcg/ml Timing of trough - # of hrs before next dose: 1 Hrs Desired peak: 40 mcg/ml Desired trough: 15 mcg/ml Diagnosis: Relevant medical/social history: Cultures and sensitivities: Other labs: Estimated PK Parameters: New rate constant (sravani): 0.086 hr-1 Half-life: 8.06 Hours Vd from levels: 80.83 Liters (0.7 L/kg) CLvanco=?? 6.951 L/hr Estimated New Dose and Interval Recommended dose: 2309.8 mg Recommended interval: 12.9 Hrs Patient response: Patient is responding to treatment [yes/no] wbc decreasing, S/SX reduced [yes/no] Renal function is stable/unstable Recommendations: Give Vancomycin 1500 mg q 12 hrs. Infuse over 1.5 hrs Expected Cpeak: 27.0 mcg/mL Expected Ctrough: 10.9 mcg/mL AUC 0-24 /CINDY Data: CINDY 0.5 mcg/mL:?? AUC/CINDY:? 863.2 CINDY 1.0 mcg/mL:?? AUC/CINDY:? 431.6 Recommended labs and intervals: Measure Bun and Scr 3 times/week. Renal dosing of other antibiotics (review renal dosing of other medications and list guidelines here): Thank you for the consult, will continue to follow. Signature: Melonie Cuenca [facility]
[2022-12-10] VITALS (10 sets, daily range): BP systolic 128–152; BP diastolic 83–89; PULSE 60–85; RESP 16–21; TEMP 36.4–36.7; O2SAT 92–96
[2022-12-10] MEDS: ipratropium 0.5 mg/2.5 mL Neb INHALATION ×3 (00:09→07:57)
[2022-12-10] MEDS: levalbuterol 0.63 mg/3 mL Neb INHALATION ×3 (00:09→07:57)
[2022-12-10 04:21] LABS: Basophils % 0.1 %; Hematocrit 39.7 % (42.0-52.0); Hemoglobin 13.2 g/dL (11.7-16.6); Lymphocytes # 0.9 10^3/uL (0.8-4.8); Mean Corpuscular HGB Conc 33.2 g/dL (30.0-36.0); Mean Corpuscular Hemoglobin 30.6 pg (28.0-34.0); Mean Corpuscular Volume 91.9 fl (80-94); Monocytes # 0.6 10^3/uL (0.2-0.9); Monocytes % 4.1 %; Neutrophils % 88.5 %; Nucleated Red Blood Cells % 0 %; Platelet Count 231 10^3/cmm (130-400); Red Blood Count 4.32 10^6/uL (4.1-5.3); Red Cell Distribution Width 14.8 % (12.1-15.1); White Blood Count 14.4 10^3/uL (4.0-10.0)
[2022-12-10 04:48] LABS: Alanine Aminotransferase 43 U/L (0-41); Alkaline Phosphatase 77 U/L (40-130); Anion Gap 16.6 (5-19); Aspartate Amino Transferase 23 U/L (0-40); Blood Urea Nitrogen 22 mg/dL (6-20); Calcium 8.6 mg/dL (8.5-10.5); Carbon Dioxide 24 mmol/L (22-29); Chloride 101 mmol/L (98-107); Globulin 1.6 g/dL (1.3-4.6); Glucose 170 mg/dL (65-115); Magnesium 2.2 mg/dL (1.7-2.3); Osmolality Calculated 291 mOsm/kg (285-295); Phosphorus 2.9 mg/dL (2.5-4.5); Potassium 4.6 mmol/L (3.5-5.1); Sodium 137 mmol/L (136-145); Total Bilirubin 0.3 mg/dL (0.15-1.2); Total Protein 5.6 g/dL (6.6-8.7)
[2022-12-10] MEDS: cefepime 1,000 MG in sodium chloride 0.9% (plus) 50 ML 100 MG IV (04:52)
[2022-12-10] MEDS: budesonide 0.5 mg/2 mL Neb INHALATION (07:57)
--- NOTE | 2022-12-10 08:21 | PM.DCS ---
Discharge Providers Date of Admission: 12/07/22 14:31 Date of Discharge: December 10, 2022 Attending Provider at Admission: Jeffrey Hector MD Attending Provider at Discharge: Jeffrey Hector MD Primary Care Provider: Christiano Whitt DO Diagnoses at Discharge Discharge Diagnosis (1) Pneumonia: Status: Acute (2) Hyperlipemia: Status: Acute Qualifiers: Hyperlipidemia type: unspecified Qualified Code(s): E78.5 - Hyperlipidemia, unspecified (3) Sepsis: Status: Acute (4) GENARO (acute kidney injury): Status: Acute (5) Atrial fibrillation with RVR: Status: Acute (6) Chest pain: Status: Inactive (7) Lactic acidosis: Status: Acute (8) Metabolic acidosis: Status: Acute Reason for Visit Reason for Visit: Chest pain Hospital Course Hospital Course Charles Looney is a 57 year old male with a past medical history of atrial fibrillation, not on anticoagulation, history of asthma, history of COVID-19, history of pneumococcal pneumonia who presents to [facility] due to a 12-hour history of fevers, chills, fatigue, malaise, chest pain, pleurisy, shortness of breath.? 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 His symptoms persisted throughout the night so he came to emergency room for evaluation.? He tells me that similar symptoms happen roughly 2 years ago when he had pneumococcal pneumonia.? No recent travel, no sick contacts, denies smoking, no IV drug use, no history immunocompromise state, he is concerned as every time he gets a pneumonia he gets high leukocytosis he is not exactly sure why, Patient was admitted to [facility] for sepsis secondary to pneumonia, with A-fib with RVR, GENARO, metabolic acidosis, NSTEMI. Patient was admitted to the cardiac stepdown unit, did develop episodes of respiratory distress requiring heated high flow, managed with broad-spectrum antibiotic therapy, Cardizem, steroid therapy, intermittent diuresis, and clinical monitoring. Overall patient's clinical condition improved, cultures so far has had no growth, he went afebrile, oxygen requirements improved to room air, ambulating without significant symptomatology, transition off Cardizem drip to p.o. Cardizem, GENARO improved. On discharge she will be discharged on 7 days of antibiotic therapy, Cardizem, aspirin, with close follow-up with primary care provider as outpatient. If patient were to have any recurrent chest pain he was advised to go to emergency room. For his A-fib with RVR, and NSTEMI, he is to follow-up with cardiology in a month. Follow-up with Dr. Goddard in 1 month. Physical Exam Const: COMMON NORMALS: no acute distress and patient oriented x3 Resp: COMMON NORMALS: normal respiratory effort, No retractions, No use of accessory muscles and clear to auscultation bilaterally AUSCULTATION: clear to auscultation bilaterally Cardio: COMMON NORMALS: regular rate, regular rhythm, S1 normal heart sound present and S2 normal heart sound present RATE: regular rate RHYTHM: regular rhythm HEART SOUNDS: S1 normal heart sound present and S2 normal heart sound present GI: COMMON NORMALS: Normal to inspection, nondistended, normoactive bowel sounds present and non-tender Extremity: COMMON NORMALS: no pedal edema Neuro: COMMON NORMALS: patient oriented x3 Psych: COMMON NORMALS: mental status grossly normal Urinary Catheter Management: Coude: Cath Placed During This Visit: yes, but has since been removed by the nurse Reason for Continuing Indwelling Catheter: Accurate Measurement of Urinary Output in Critically Ill Patients Urinary Catheter Date of Insertion: 12/08/22 Urinary Catheter Time of Insertion: 00:53 Date Urinary Catheter Removed: 12/08/22 Time Urinary Catheter Discontinued: 14:47 Discharge Data Studies Completed and Pending Completed Studies During Hospitalization Category Date Time Status CT angio chest PE protcl [id number] Stat Cat Scan 12/07/22 13:03 Completed CXRP [XR chest 1V portable [id number]] Stat Exams 12/07/22 19:05 Completed XR chest 1V portable [id number] Stat Exams 12/07/22 10:44 Completed CV. echo complete* [id number] Stat Ultrasound 12/07/22 13:03 Completed Pending at discharge Category Date Time Status Blood Culture Stat Lab 12/07/22 13:44 Results Fibrinogen Degradation Product Routine Lab 12/07/22 10:00 Received Sputum Culture and Gram Stain Stat Lab 12/07/22 11:36 Uncollected Radiology Impressions Chest CTA 12/07/22 13:03 IMPRESSION: 1. No CT findings to indicate pulmonary embolus. 2. Infiltrate with consolidation and partial air bronchograms lower right lung and lung base mid to posteriorly and within the posterior left lung base. Findings suggest pneumonia. Follow-up chest radiograph with treatment. 3. Chronic changes otherwise when correlated with 2020 exam as noted above. Chest X-Ray 12/07/22 19:05 IMPRESSION: Opacity or partially consolidated infiltrate lower right lung with trace effusion along with small amount of left basilar opacity and/or atelectasis. Findings suggest pneumonia, with similar appearance to exam earlier same date. Laboratory Results WBC 14.4 10^3/uL (4.0-10.0) H 12/10/22 04:15 RBC 4.32 10^6/uL (4.1-5.3) 12/10/22 04:15 Hgb 13.2 g/dL (11.7-16.6) 12/10/22 04:15 Hct 39.7 % (42.0-52.0) L 12/10/22 04:15 MCV 91.9 fl (80-94) 12/10/22 04:15 MCH 30.6 pg (28.0-34.0) 12/10/22 04:15 MCHC 33.2 g/dL (30.0-36.0) 12/10/22 04:15 RDW 14.8 % (12.1-15.1) 12/10/22 04:15 Plt Count 231 10^3/cmm (130-400) 12/10/22 04:15 MPV 10.0 fL (7.4-10.4) 12/10/22 04:15 Neut % (Auto) 88.5 % 12/10/22 04:15 Lymph % (Auto) 6.0 % 12/10/22 04:15 [place] % (Auto) 4.1 % 12/10/22 04:15 Eos % (Auto) 0.0 % 12/10/22 04:15 Baso % (Auto) 0.1 % 12/10/22 04:15 Neut # (Auto) 12.70 10^3/uL (1.8-7.7) H 12/10/22 04:15 Lymph # (Auto) 0.9 10^3/uL (0.8-4.8) 12/10/22 04:15 [place] # (Auto) 0.6 10^3/uL (0.2-0.9) 12/10/22 04:15 Eos # (Auto) 0.0 10^3/uL (0.0-0.8) 12/10/22 04:15 Baso # (Auto) 0.0 10^3/uL (0.0-0.1) 12/10/22 04:15 Nucleated RBC % (auto) 0 % 12/10/22 04:15 Nucleated RBCs # 0.0 /100WBC 12/10/22 04:15 PT 13.80 SECONDS (12.1-14.9) 12/07/22 10:00 INR 1.03 (0.8-1.2) 12/07/22 10:00 APTT 27.0 SECONDS (23.9-36.7) 12/07/22 10:00 Fibrinogen 516 mg/dL (174-498) H 12/07/22 10:00 Fibrin Degrad Products ug/mL (NEG) 12/07/22 10:00 D-Dimer 0.31 ug/mIFEU (0-0.59) 12/07/22 10:00 Specimen Type Arterial 12/07/22 19:29 Sample Site Radial, left 12/07/22 19:29 ABG pH 7.49 (7.35-7.45) H 12/07/22 19:29 ABG pCO2 32.5 mmHg (35-45) L 12/07/22 19: ABG pO2 61.0 mmHg (80.0-100.0) L 12/07/22 19: ABG HCO3 24.8 mmol/L (22-26) 12/07/22 19:29 ABG O2 Saturation 94.2 12/07/22 19: ABG Base Excess 2.0 mmol/L (-2.0-2.0) 12/07/22 19: Ronny Test Pos 12/07/22 19:29 A-a O2 Gradient 6.2 mmHg (5-10) 12/07/22 19:29 Hematocrit 43.0 % (42-52) 12/07/22 19:29 Hgb O2 Saturation 91.9 % (95-100) L 12/07/22 19:29 Carboxyhemoglobin 1.9 %THgb (0.4-20.1) 12/07/22 19:29 Methemoglobin 0.4 % (0.4-1.5) 12/07/22 19:29 Total Hemoglobin 14.0 g/dL (14-18) 12/07/22 19:29 Sodium 135.0 mmol/L (131-143) 12/07/22 19:29 Potassium 3.7 mmol/L (3.5-5.0) 12/07/22 19:29 Glucose 136.0 mg/dL (70-115) H 12/07/22 19:29 Ionized Calcium 1.1 mmol/L (1.1-1.4) 12/07/22 19:29 O2 Delivery Device Nc 12/07/22 19:29 O2 Liters/Min 3.0 % 12/07/22 19:29 FiO2 21.0 % 12/07/22 13:26 Filler Feeder ID [email or web address] 12/07/22 19:29 Sodium 137 mmol/L (136-145) 12/10/22 04:15 Potassium 4.6 mmol/L (3.5-5.1) 12/10/22 04:15 Chloride 101 mmol/L (98-107) 12/10/22 04:15 Carbon Dioxide 24 mmol/L (22-29) 12/10/22 04:15 Anion Gap 16.6 (5-19) 12/10/22 04:15 BUN 22 mg/dL (6-20) H 12/10/22 04:15 Creatinine 1.1 mg/dL (0.7-1.2) 12/10/22 04:15 GFR Calculation 69.0 mL/min (90-130) L 12/10/22 04:15 Glucose 170 mg/dL (65-115) H 12/10/22 04:15 Estimat Average Glucose 94 12/07/22 10:00 Hemoglobin A1c 4.9 % (4.0-6.0) 12/07/22 10:00 Calculated Osmolality 291 mOsm/kg (285-295) 12/10/22 04:15 Lactic Acid 2.5 mmol/L (0.5-2.2) H 12/07/22 13:44 Lactic Acid (Sepsis) 2.0 mmol/L (0.5-2.2) 12/07/22 16:44 Calcium 8.6 mg/dL (8.5-10.5) 12/10/22 04:15 Phosphorus 2.9 mg/dL (2.5-4.5) 12/10/22 04:15 Magnesium 2.2 mg/dL (1.7-2.3) 12/10/22 04:15 Total Bilirubin 0.3 mg/dL (0.15-1.2) 12/10/22 04:15 AST 23 U/L (0-40) 12/10/22 04:15 ALT 43 U/L (0-41) H 12/10/22 04:15 Alkaline Phosphatase 77 U/L (40-130) 12/10/22 04:15 Troponin T Baseline 21 ng/L (0-15) H 12/07/22 10:00 Troponin T 120 Minute 22.08 ng/L (0-15) H 12/07/22 12:08 Delta Troponin T 1.08 ABS# (0-10) 12/07/22 12:08 Troponin T Hi Sens 6Hr 23.89 ng/L (0-15) H 12/07/22 17:17 Troponin T Hi Sens 6Hr Delta 2.89 ng/L (0-12) 12/07/22 17:17 C-Reactive Protein 124.2 mg/L (0.0-4.9) H 12/07/22 10:00 NT-Pro-B Natriuret Pep 349 pg/mL (0-125) H 12/07/22 10:00 Total Protein 5.6 g/dL (6.6-8.7) L 12/10/22 04:15 Albumin 4.0 g/dL (3.5-5.2) 12/10/22 04:15 Globulin 1.6 g/dL (1.3-4.6) 12/10/22 04:15 Triglycerides 46 mg/dL (0-150) 12/07/22 10:00 Cholesterol 182 mg/dL (0-200) 12/07/22 10:00 LDL Cholesterol, Calc 115 mg/dL (50-129) 12/07/22 10:00 HDL Cholesterol 58 mg/dL (60-100) L 12/07/22 10:00 LDL/HDL Ratio 1.98 RATIO (0.00-3.22) 12/07/22 10:00 Cholesterol/HDL Ratio 3.14 mg/dL (1.0-5.00) 12/07/22 10:00 Procalcitonin 2.51 ng/mL (0-0.5) H 12/07/22 10:00 TSH 1.92 uIU/mL (0.27-4.20) 12/07/22 10:00 Urine Color Dark yellow (Yellow) 12/07/22 15:19 Urine Appearance Clear (CLEAR) 12/07/22 15:19 Urine pH 6 (5-7) 12/07/22 15:19 Ur Specific [place] 1.015 (1.005-1.030) 12/07/22 15:19 Urine Protein Neg (Negative) 12/07/22 15:19 Urine Glucose (UA) 2+ (Normal) H 12/07/22 15:19 Urine Ketones 1+ (Negative) H 12/07/22 15:19 Urine Blood Neg (Negative) 12/07/22 15:19 Urine Nitrate Negative (Negative) 12/07/22 15:19 Urine Bilirubin Neg (Negative) 12/07/22 15:19 Urine Urobilinogen Norm mg/dL (Negative) 12/07/22 15:19 Ur Leukocyte Esterase Negative (Negative) 12/07/22 15:19 Nasal Influ A H1 2008 PCR Not detected (NOT DETECT) 12/08/22 07:25 Vancomycin Trough 5.6 ug/mL (10-15) L 12/09/22 19:29 Adenovirus (PCR) Not detected (NOT DETECT) 12/08/22 07:25 C. pneumoniae DNA (PCR) Not detected (NOT DETECT) 12/08/22 07:25 Coronavirus 229E (PCR) Not detected (NOT DETECT) 12/08/22 07:25 Hepatitis A IgM Ab Non-reactive (Nonreactive) 12/07/22 10:00 Hep Bs Antigen Non-reactive (Nonreactive) 12/07/22 10:00 Hep B Core IgM Ab Non-reactive (Nonreactive) 12/07/22 10:00 Hepatitis C Antibody Non-reactive (Nonreactive) 12/07/22 10:00 HIV 1&2 Ab & HIV 1 Ag Non-reactive (Non-Reactiv) 12/07/22 10:00 HIV 1&2 Antibody Non-reactive (Non-Reactiv) 12/07/22 10:00 Human Metapneumovir PCR Not detected (NOT DETECT) 12/08/22 07:25 Influenza A (H1) PCR Not detected (NOT DETECT) 12/08/22 07:25 Influenza A (H3) PCR Not detected (NOT DETECT) 12/08/22 07:25 Influenza Type A (PCR) Not detected (NOT DETECT) 12/08/22 07:25 Influenza Type B (PCR) Not detected (NOT DETECT) 12/08/22 07:25 M. pneumoniae (PCR) Not detected (NOT DETECT) 12/08/22 07:25 Parainfluenza 1 (PCR) Not detected (NOT DETECT) 12/08/22 07:25 Parainfluenza 2 (PCR) Not detected (NOT DETECT) 12/08/22 07:25 Parainfluenza 3 (PCR) Not detected (NOT DETECT) 12/08/22 07:25 Parainfluenza 4 (PCR) Not detected (NOT DETECT) 12/08/22 07:25 RSV Type A (PCR) Not detected (NOT DETECT) 12/08/22 07:25 RSV Type B (PCR) Not detected (NOT DETECT) 12/08/22 07:25 Entero/Rhino (PCR) Not detected (NOT DETECT) 12/08/22 07:25 SARS-CoV-2 (PCR) Not detected (NOT DETECT) 12/08/22 07:25 Vitals Last Vital Signs Temp 97.6 F 12/10/22 07:39 Pulse 66 12/10/22 08:07 Resp 16 12/10/22 07:57 BP 147/89 12/10/22 07:39 Pulse Ox 93 12/10/22 07:57 O2 Del Method Room Air 12/10/22 07:57 O2 Flow Rate 30 12/09/22 11:26 FiO2 30 12/09/22 16:00 Discharge Plan Discharge Patient Disposition: Home Condition: Stable Prescriptions: New aspirin 81 mg Tablet,Delayed Release (Dr/Ec) 81 mg PO DAILY 30 Days Qty: 30 0RF prednisone 20 mg tablet 20 mg PO BID 5 Days Qty: 10 0RF amoxicillin-pot clavulanate 875-125 mg tablet 1 tab PO BID 7 Days Qty: 14 0RF doxycycline hyclate 100 mg tablet 100 mg PO BID 7 Days Qty: 14 0RF diltiazem HCl 120 mg capsule,extended release 12 hr 120 mg PO BID 30 Days Qty: 60 0RF Continued cholecalciferol (vitamin D3) 25 mcg (1,000 unit) capsule 25 mcg PO DAILY (DME) fast form cock up splint See Rx Instructions .Route .MEDSUPPLY Qty: 1 0RF Rx Instructions: As directed (DME) cock up splint See Rx Instructions .Route .MEDSUPPLY Qty: 1 0RF Rx Instructions: As directed ascorbic acid (vitamin C) [Vitamin C] 500 mg capsule, extended release 500 mg PO DAILY Qty: 14 0RF multivitamin Tablet 1 tab PO DAILY zinc acetate 50 mg (zinc) Capsule 50 mg PO DAILY magnesium 250 mg Tablet 250 mg PO DAILY sildenafil 100 mg Tablet 100 mg PO .2 TIMES PER WEEK PRN (Reason: Erectile Dysfunction) Rx Instructions: administer 30 minutes to 4 hours before activity trazodone 100 mg Tablet 100 mg PO BID venlafaxine 150 mg Tablet Extended Release 24hr 150 mg PO DAILY albuterol sulfate 90 mcg/actuation HFA aerosol inhaler 2 puff INHALATION Q6H PRN (Reason: Shortness Of Breath) Qty: 8.5 0RF Discharge Orders: Discharge Order (Routine); Ordered 12/10/22 Ordered By: Jeffrey Hector Referrals: Luis Barber MD [Physician] - 1 month Nitza,Blu Castillo MD [Physician] - 2 weeks Christiano Whitt DO [Primary Care Provider] - Discharge Diet: Cardiac Discharge Activity: Resume usual activity Patient Instructions: Opioid Safety Activity Restrictions/Additional Instructions: - If you have any shortness of breath please go to the emergency room -Please continue to face mask, hand wash -If you have any chest pain or palpitations, emergency room -See cardiology in 1 month -See your primary care provider in 96 hours -See Dr. Goddard in 1 month Discharge Attestations Time Spent in Discharge Care*: greater than 30 min Status at Discharge: Cognitive status at discharge: cognitively intact, Behavioral status at discharge: cooperative, Quality Metrics Clinical Quality Measures [ No reported AMI, CVA or VTE this stay] Coding Level of Care Code 93993 Total time (in minutes) for Discharge: 50 Diagnoses Pneumonia J18.9 Hyperlipemia E78.5 Hyperlipidemia type: unspecified Sepsis A41.9 GENARO (acute kidney injury) N17.9 Atrial fibrillation with RVR I48.91 Chest pain R07.9 Lactic acidosis E87.20 Metabolic acidosis E87.20
[2022-12-10] MEDS: venlafaxine ER (24HR) 37.5 mg Capsule PO (08:27)
[2022-12-10] MEDS: aspirin 81 mg EC Tablet PO (08:27)
[2022-12-10] MEDS: dilTIAZem 60 mg Tablet PO (08:27)
[2022-12-10] MEDS: vancomycin 1,500 MG/300 ML PIGGYBACK 200 MG IV (08:32)
[2022-12-15 23:40] LABS: Fibrinogen Degradation Product <5 mcg/mL (LESS THAN 5)
== END 2022-12-10 11:02 | disposition home or self-care (01) | DRG 871 ==
LOC: ER 11:39 → CSU 14:32
PROVIDERS: Student in an Organized Health Care Education/Training Program; Admitting Provider Family Medicine; Emergency Provider Family Medicine; PCP Emergency Medicine Emergency Medical Services; Visit Provider Family Medicine
DX: A41.9 Sepsis, unspecified organism (principal); J18.9 Pneumonia, unspecified organism; N17.9 Acute kidney failure, unspecified; E87.20 Acidosis, unspecified; E78.5 Hyperlipidemia, unspecified; I48.91 Unspecified atrial fibrillation; J45.909 Unspecified asthma, uncomplicated; Z86.16 Personal history of COVID-19; Z87.01 Personal history of pneumonia (recurrent); R77.8 Other specified abnormalities of plasma proteins; Z79.891 Long term (current) use of opiate analgesic; Z79.51 Long term (current) use of inhaled steroids; I10 Essential (primary) hypertension; F32.9 Major depressive disorder, single episode, unspecified; F43.10 Post-traumatic stress disorder, unspecified
CPT/HCPCS: 36415; 36600; 51702; 71045; 71275; 80051; 80053; 80061; 80074; 80202; 81003; 82330; 82803; 82805; 83036; 83605; 83735; 83880; 84100; 84145; 84443; 84484; 85025; 85362; 85378; 85384; 85610; 85730; 86140; 86403; 87040; 87486; 87581; 87633; 87641; 87806; 93005; 93306; 94640; 94664; 94760; 96365; 96366; 96367; 96372; 96375; 96376; 99291; C9113; J0692; J1100; J1650; J1940; J2270; J2543; J3370; J3490; J7120; J7614; J7626; J7644; Q9967

== ENCOUNTER → 2023-01-10 09:18 | Outpatient (BNVA) | payer OTHER, SELFPAY | PROVIDERS: PCP Emergency Medicine Emergency Medical Services; Visit Provider Nurse Practitioner Family | DX: I48.0 Paroxysmal atrial fibrillation (principal); I44.0 Atrioventricular block, first degree; I21.9 Acute myocardial infarction, unspecified | CPT/HCPCS: 93005; 99213 ==

== ENCOUNTER → 2023-02-04 08:02 | Outpatient (BNVA) | payer OTHER, SELFPAY | PROVIDERS: PCP Emergency Medicine Emergency Medical Services; Visit Provider Internal Medicine Pulmonary Disease | DX: J82.83 Eosinophilic asthma (principal); R91.1 Solitary pulmonary nodule; Z86.16 Personal history of COVID-19; Z87.01 Personal history of pneumonia (recurrent); J45.998 Other asthma | CPT/HCPCS: 36415; 82784; 82785; 85025; 86003; 99214 ==

== ENCOUNTER 2023-02-17 07:13 | Outpatient (CLI) | payer OTHER, SELFPAY ==
--- NOTE | 2023-02-17 07:30 | CT_ITS ---
WS: [id number] CT CHEST TECHNIQUE: Noncontrast CT of the chest with coronal and sagittal reformatted images. CLINICAL INFORMATION: f/u COMPARISON: CTA 12/07/2022 DLP: 512.[address] scans at [facility] use at least one of these dose optimization techniques: automated e xposure control; mA and/or kV adjustment per patient size (includes targeted exams where dose is matc hed to clinical indication); or iterative reconstruction. FINDINGS: Wedge-shaped opacity in the RIGHT upper lobe measuring 2.8 x 1.6 cm with surrounding fibrosis unchang ed compared to 04/25/2021. RIGHT greater than LEFT lower lobe pneumonia resolved compared to previous. Small amount of residual infiltrate or fibrosis in the RIGHT lower lobe posteromedially. Noncalcified nodule RIGHT lower lobe along the diaphragm measuring 5 mm and along the LEFT diaphragm measuring 5 mm. A few small nodular o pacities in the LEFT lower lobe. Normal caliber thoracic aorta. Aortic calcification. Coronary calcification. No mediastinal or hilar lymphadenopathy. No axillary lymphadenopathy. Adrenal glands are normal. Splenic granulomas. Incident al hemangioma T9 vertebral body. IMPRESSION: 1. Previously described RIGHT greater than LEFT lower lobe pneumonia has resolved compared to 023. 2. Wedge-shaped fibrotic opacity RIGHT upper lobe is stable. 3. A few subcentimeter pulmonary nodules in the lung bases. Recommend 12-month follow-up.
== END 2023-02-17 07:14 | disposition home or self-care (01) ==
PROVIDERS: PCP Emergency Medicine Emergency Medical Services; Visit Provider Internal Medicine Pulmonary Disease
DX: R91.8 Other nonspecific abnormal finding of lung field (principal)
CPT/HCPCS: 71250

== ENCOUNTER 2023-04-14 08:14 | Oncology outpatient (recurring) (ONCR) | payer OTHER, SELFPAY ==
--- OUTSIDE RECORDS SUMMARY | 2023-03-25 09:49 | XMS_ITS | Patient Health Record ---
Author Name Unknown Organization [facility] Address [address] [facility] [place] [address] Care Team Providers Care Cooler Operator Name Role Phone Ángela Laboy Josue [phone] REASON FOR REFERRAL No Information MEDICATIONS Medication SIG (Take, Route, Frequency, Duration) Notes Start Date End Date Status Bupropion Bupropion 03/22/2017 Active sildenafil 100 MG Oral Tablet sildenafil 100 MG Oral Tablet 03/22/2017 Active trazodone Trazodone 03/22/2017 Active IMMUNIZATIONS Vaccine Route Administration Date Status Comme nts Influenza (whole), CPT 55381 Inactive Unknown 02/20/2017 Administered Influenza (whole), CPT 27635 Inactive Unknown 02/23/2018 Administered SOCIAL HISTORY Sex Assigned At : Social History Observation Description Sex Assigned At Unknown Encounters Encounter Location Date Provider Diagnosis [facility] [address] [place] [address] [address] [place] [address] 08/04/2022 Ángela Laboy PLAN OF TREATMENT No Information
--- OUTSIDE RECORDS SUMMARY | 2023-04-14 08:17 | XMS_ITS | Patient Health Record ---
Author Name Unknown Organization [facility] Address [address] [facility] [place] [address] Care Team Providers Care Library Services Dean Name Role Phone Ángela Laboy Josue [phone] REASON FOR REFERRAL No Information MEDICATIONS Medication SIG (Take, Route, Frequency, Duration) Notes Start Date End Date Status Bupropion Bupropion 03/22/2017 Active sildenafil 100 MG Oral Tablet sildenafil 100 MG Oral Tablet 03/22/2017 Active trazodone Trazodone 03/22/2017 Active IMMUNIZATIONS Vaccine Route Administration Date Status Comme nts Influenza (whole), CPT 38343 Inactive Unknown 02/20/2017 Administered Influenza (whole), CPT 17111 Inactive Unknown 02/23/2018 Administered SOCIAL HISTORY Sex Assigned At : Social History Observation Description Sex Assigned At Unknown Encounters Encounter Location Date Provider Diagnosis [facility] [address] [place] [address] [address] [place] [address] 08/04/2022 Ángela Laboy PLAN OF TREATMENT No Information
== END 2023-04-14 23:59 | disposition home or self-care (01) ==
LOC: ONCMED 08:15
PROVIDERS: PCP Emergency Medicine Emergency Medical Services; Visit Provider Internal Medicine Medical Oncology
DX: D80.1 Nonfamilial hypogammaglobulinemia (principal); Z79.899 Other long term (current) drug therapy
CPT/HCPCS: 99215

== ENCOUNTER 2023-04-27 14:30 | Oncology outpatient (recurring) (ONCR) | payer OTHER, SELFPAY ==
[2023-04-20] VITALS (8 sets, daily range): BP systolic 111–136; BP diastolic 70–79; PULSE 59–77; RESP 16–17; TEMP 36.2–36.7; O2SAT 95–97
[2023-04-20 08:23] LABS: Basophils # 0.1 10^3/uL (0.0-0.1); Basophils % 0.6 %; Eosinophils # 0.5 10^3/uL (0.0-0.8); Eosinophils % 4.3 %; Hematocrit 43.5 % (37-53); Lymphocytes % 9.1 %; Mean Corpuscular HGB Conc 34.3 g/dL (30-55); Mean Corpuscular Hemoglobin 31.4 pg (27-33); Mean Corpuscular Volume 91.6 fl (82-101); Mean Platelet Volume 9.8 fL (7.4-10.4); Monocytes # 0.8 10^3/uL (0.2-0.9); Monocytes % 7.5 %; Neutrophils # 8.29 10^3/uL (1.8-7.7); Neutrophils % 78.1 %; Nucleated Red Blood Cells % 0 %; Platelet Count 245 10^3/cmm (157-399); Red Blood Count 4.75 10^6/uL (3.85-5.65); White Blood Count 10.62 10^3/uL (3.29-11.43)
[2023-04-20 08:40] LABS: Alanine Aminotransferase 34 U/L (0-41); Albumin Level 4.6 g/dL (3.5-5.2); Alkaline Phosphatase 110 U/L (40-130); Anion Gap 15.1 (5-19); Aspartate Amino Transferase 21 U/L (0-40); Blood Urea Nitrogen 18 mg/dL (6-20); Calcium 9.3 mg/dL (8.5-10.5); Carbon Dioxide 25 mmol/L (22-29); Chloride 104 mmol/L (98-107); Globulin 1.6 g/dL (1.3-4.6); Glucose 92 mg/dL (65-115); Osmolality Calculated 292 mOsm/kg (285-295); Potassium 4.1 mmol/L (3.5-5.1); Sodium 140 mmol/L (136-145); Total Bilirubin 0.3 mg/dL (0.15-1.2); Total Protein 6.2 g/dL (6.6-8.7)
[2023-04-20] MEDS: acetaminophen 325 mg Tablet 650 MG PO (10:45)
[2023-04-20] MEDS: diphenhydrAMINE 25 mg Capsule PO (10:46)
[2023-04-20] MEDS: sodium chloride 0.9% 500 ML 75 ML IV (10:49)
[2023-04-20] MEDS: immune globulin (Privigen ONC) 40 GM in empty flexible container 1 EACH IV (11:10)
[2023-04-27 14:55] VITALS: BP 141/89; PULSE 70; RESP 16; TEMP 36.4; O2SAT 95
[2023-04-27 15:10] LABS: Basophils # 0.1 10^3/uL (0.0-0.1); Basophils % 0.9 %; Eosinophils # 0.5 10^3/uL (0.0-0.8); Eosinophils % 7.2 %; Hematocrit 42.8 % (37-53); Lymphocytes % 15.7 %; Mean Corpuscular HGB Conc 35.5 g/dL (30-55); Mean Corpuscular Hemoglobin 31.3 pg (27-33); Mean Corpuscular Volume 88.1 fl (82-101); Monocytes # 0.7 10^3/uL (0.2-0.9); Monocytes % 9.9 %; Neutrophils # 4.34 10^3/uL (1.8-7.7); Neutrophils % 66.1 %; Nucleated Red Blood Cells % 0 %; Platelet Count 231 10^3/cmm (157-399); Red Blood Count 4.86 10^6/uL (3.85-5.65); Red Cell Distribution Width 12.6 % (12.1-15.1); White Blood Count 6.56 10^3/uL (3.29-11.43)
[2023-04-27 15:36] LABS: Alanine Aminotransferase 50 U/L (0-41); Albumin Level 4.6 g/dL (3.5-5.2); Alkaline Phosphatase 116 U/L (40-130); Anion Gap 14.3 (5-19); Aspartate Amino Transferase 36 U/L (0-40); Blood Urea Nitrogen 13 mg/dL (6-20); Calcium 9.6 mg/dL (8.5-10.5); Carbon Dioxide 26 mmol/L (22-29); Chloride 103 mmol/L (98-107); Globulin 2.5 g/dL (1.3-4.6); Glucose 102 mg/dL (65-115); Osmolality Calculated 288 mOsm/kg (285-295); Potassium 4.3 mmol/L (3.5-5.1); Sodium 139 mmol/L (136-145); Total Bilirubin 0.2 mg/dL (0.15-1.2); Total Protein 7.1 g/dL (6.6-8.7)
== END 2023-05-15 23:59 | disposition home or self-care (01) ==
PROVIDERS: Nurse Practitioner Family; PCP Emergency Medicine Emergency Medical Services; Visit Provider Internal Medicine Medical Oncology
DX: D80.1 Nonfamilial hypogammaglobulinemia (principal)
CPT/HCPCS: 36415; 80053; 85025; 96365; 96366; 99214; J1459; J7040

== ENCOUNTER 2023-06-15 11:00 | Oncology outpatient (recurring) (ONCR) | payer OTHER, SELFPAY ==
[2023-05-18] VITALS (7 sets, daily range): BP systolic 120–149; BP diastolic 73–87; PULSE 16–79; RESP 16–73; TEMP 36.2–36.8; O2SAT 96–98; BMI 30.7
[2023-05-18 08:48] LABS: Basophils % 0.5 %; Eosinophils # 0.4 10^3/uL (0.0-0.8); Eosinophils % 5.3 %; Hematocrit 44.2 % (37-53); Lymphocytes # 0.8 10^3/uL (0.8-4.8); Lymphocytes % 9.9 %; Mean Corpuscular HGB Conc 35.3 g/dL (30-55); Mean Corpuscular Hemoglobin 31.4 pg (27-33); Mean Corpuscular Volume 88.9 fl (82-101); Mean Platelet Volume 9.6 fL (7.4-10.4); Monocytes # 0.6 10^3/uL (0.2-0.9); Monocytes % 7.5 %; Neutrophils # 6.21 10^3/uL (1.8-7.7); Neutrophils % 76.4 %; Nucleated Red Blood Cells % 0 %; Platelet Count 266 10^3/cmm (157-399); Red Blood Count 4.97 10^6/uL (3.85-5.65); Red Cell Distribution Width 12.2 % (12.1-15.1); White Blood Count 8.12 10^3/uL (3.29-11.43)
[2023-05-18 09:04] LABS: Alanine Aminotransferase 37 U/L (0-41); Albumin Level 4.4 g/dL (3.5-5.2); Alkaline Phosphatase 145 U/L (40-130); Anion Gap 17.4 (5-19); Aspartate Amino Transferase 31 U/L (0-40); Blood Urea Nitrogen 18 mg/dL (6-20); Calcium 9.5 mg/dL (8.5-10.5); Carbon Dioxide 24 mmol/L (22-29); Chloride 104 mmol/L (98-107); Globulin 2.3 g/dL (1.3-4.6); Glomerular Filtration Rate 68.8 mL/min (90-130); Glucose 87 mg/dL (65-115); Immunoglobulin IGG 557 mg/dL (700-1600); Immunoglobulin IGM 50 mg/dL (40-230); Osmolality Calculated 293 mOsm/kg (285-295); Potassium 4.4 mmol/L (3.5-5.1); Sodium 141 mmol/L (136-145); Total Bilirubin 0.2 mg/dL (0.15-1.2); Total Protein 6.7 g/dL (6.6-8.7)
[2023-05-18 09:07] LABS: Immunoglobulin IGA < 50 mg/dL (70-400)
[2023-05-18] MEDS: acetaminophen 325 mg Tablet 650 MG PO (12:01)
[2023-05-18] MEDS: diphenhydrAMINE 25 mg Capsule PO (12:01)
[2023-05-18] MEDS: sodium chloride 0.9% 250 ML 75 ML IV (12:03)
[2023-05-18] MEDS: immune globulin (Privigen ONC) 40 GM in empty flexible container 1 EACH IV (12:37)
--- OUTSIDE RECORDS SUMMARY | 2023-06-14 11:37 | XMS_ITS | Patient Health Record ---
Author Name Unknown Organization [facility] Address [address] [place] [address] Care Team Providers Care [employer] Officer Name Role Phone Ángela Laboy Josue [phone] REASON FOR REFERRAL No Information MEDICATIONS Medication SIG (Take, Route, Frequency, Duration) Notes Start Date End Date Status Bupropion Bupropion 03/22/2017 Active sildenafil 100 MG Oral Tablet sildenafil 100 MG Oral Tablet 03/22/2017 Active trazodone Trazodone 03/22/2017 Active IMMUNIZATIONS Vaccine Route Administration Date Status Comme nts Influenza (whole), CPT 44790 Inactive Unknown 02/20/2017 Administered Influenza (whole), CPT 66130 Inactive Unknown 02/23/2018 Administered SOCIAL HISTORY Sex Assigned At : Social History Observation Description Sex Assigned At Unknown Encounters Encounter Location Date Provider Diagnosis [facility] [address] [place] [address] [address] [place] [address] 08/04/2022 Ángela Laboy PLAN OF TREATMENT No Information
[2023-06-14 12:44] LABS: Basophils # 0.1 10^3/uL (0.0-0.1); Basophils % 0.8 %; Eosinophils # 0.4 10^3/uL (0.0-0.8); Hematocrit 46.9 % (37-53); Lymphocytes # 0.8 10^3/uL (0.8-4.8); Lymphocytes % 11.4 %; Mean Corpuscular HGB Conc 34.5 g/dL (30-55); Mean Corpuscular Hemoglobin 29.9 pg (27-33); Mean Corpuscular Volume 86.5 fl (82-101); Mean Platelet Volume 9.9 fL (7.4-10.4); Monocytes # 0.6 10^3/uL (0.2-0.9); Monocytes % 8.3 %; Neutrophils # 5.37 10^3/uL (1.8-7.7); Neutrophils % 74.1 %; Nucleated Red Blood Cells % 0 %; Platelet Count 259 10^3/cmm (157-399); Red Blood Count 5.42 10^6/uL (3.85-5.65); Red Cell Distribution Width 12.2 % (12.1-15.1); White Blood Count 7.25 10^3/uL (3.29-11.43)
[2023-06-14 13:08] LABS: Alanine Aminotransferase 45 U/L (0-41); Albumin Level 4.4 g/dL (3.5-5.2); Alkaline Phosphatase 114 U/L (40-130); Anion Gap 16.8 (5-19); Aspartate Amino Transferase 35 U/L (0-40); Blood Urea Nitrogen 17 mg/dL (6-20); Calcium 9.8 mg/dL (8.5-10.5); Carbon Dioxide 24 mmol/L (22-29); Chloride 104 mmol/L (98-107); Globulin 2.6 g/dL (1.3-4.6); Glomerular Filtration Rate 68.8 mL/min (90-130); Glucose 100 mg/dL (65-115); Immunoglobulin IGG 701 mg/dL (700-1600); Osmolality Calculated 292 mOsm/kg (285-295); Potassium 4.8 mmol/L (3.5-5.1); Sodium 140 mmol/L (136-145); Total Bilirubin 0.3 mg/dL (0.15-1.2)
--- OUTSIDE RECORDS SUMMARY | 2023-06-15 10:28 | XMS_ITS | Patient Health Record ---
Author Name Unknown Organization [facility] Address [address] [place] [address] Care Team Providers Care Roving Weight Gauger Name Role Phone Ángela Laboy Josue [phone] REASON FOR REFERRAL No Information MEDICATIONS Medication SIG (Take, Route, Frequency, Duration) Notes Start Date End Date Status Bupropion Bupropion 03/22/2017 Active sildenafil 100 MG Oral Tablet sildenafil 100 MG Oral Tablet 03/22/2017 Active trazodone Trazodone 03/22/2017 Active IMMUNIZATIONS Vaccine Route Administration Date Status Comme nts Influenza (whole), CPT 73644 Inactive Unknown 02/20/2017 Administered Influenza (whole), CPT 43377 Inactive Unknown 02/23/2018 Administered SOCIAL HISTORY Sex Assigned At : Social History Observation Description Sex Assigned At Unknown Encounters Encounter Location Date Provider Diagnosis [facility] [address] [place] [address] [address] [place] [address] 08/04/2022 Ángela Laboy PLAN OF TREATMENT No Information
[2023-06-15] MEDS: acetaminophen 325 mg Tablet 650 MG PO (11:46)
[2023-06-15] MEDS: diphenhydrAMINE 25 mg Capsule PO (11:47)
[2023-06-15] MEDS: sodium chloride 0.9% 250 ML 50 ML IV (11:59)
[2023-06-15] MEDS: immune globulin (Privigen ONC) 40 GM in empty flexible container 1 EACH IV (12:16)
[2023-06-15 14:36] VITALS: BP 143/86; PULSE 65; RESP 17; TEMP 36.6; O2SAT 98
== END 2023-06-15 23:59 | disposition home or self-care (01) ==
PROVIDERS: Internal Medicine; Nurse Practitioner Family; PCP Emergency Medicine Emergency Medical Services; Visit Provider Internal Medicine Medical Oncology
DX: D80.1 Nonfamilial hypogammaglobulinemia (principal); Z53.9 Procedure and treatment not carried out, unspecified reason; Z79.899 Other long term (current) drug therapy; J45.909 Unspecified asthma, uncomplicated
CPT/HCPCS: 36415; 80053; 82784; 85025; 96365; 96366; 96375; 99213; 99214; J1459; J7050

== ENCOUNTER 2023-07-13 11:30 | Oncology outpatient (recurring) (ONCR) | payer OTHER, SELFPAY ==
[2023-07-12 13:57] LABS: Basophils # 0.1 10^3/uL (0.0-0.1); Basophils % 0.6 %; Eosinophils # 0.4 10^3/uL (0.0-0.8); Eosinophils % 4.7 %; Hematocrit 42.6 % (37-53); Lymphocytes # 0.9 10^3/uL (0.8-4.8); Mean Corpuscular HGB Conc 34.3 g/dL (30-55); Mean Corpuscular Hemoglobin 30.1 pg (27-33); Mean Corpuscular Volume 87.8 fl (82-101); Mean Platelet Volume 9.6 fL (7.4-10.4); Monocytes # 0.6 10^3/uL (0.2-0.9); Monocytes % 7.6 %; Neutrophils # 6.01 10^3/uL (1.8-7.7); Neutrophils % 75.7 %; Nucleated Red Blood Cells % 0 %; Platelet Count 311 10^3/cmm (157-399); Red Blood Count 4.85 10^6/uL (3.85-5.65); Red Cell Distribution Width 12.4 % (12.1-15.1); White Blood Count 7.93 10^3/uL (3.29-11.43)
[2023-07-12 14:11] LABS: Alanine Aminotransferase 22 U/L (0-41); Albumin Level 4.3 g/dL (3.5-5.2); Alkaline Phosphatase 100 U/L (40-130); Anion Gap 13.4 (5-19); Aspartate Amino Transferase 23 U/L (0-40); Blood Urea Nitrogen 16 mg/dL (6-20); Calcium 9.3 mg/dL (8.5-10.5); Carbon Dioxide 26 mmol/L (22-29); Chloride 106 mmol/L (98-107); Globulin 2.6 g/dL (1.3-4.6); Glomerular Filtration Rate 68.8 mL/min (90-130); Glucose 89 mg/dL (65-115); Osmolality Calculated 293 mOsm/kg (285-295); Potassium 4.4 mmol/L (3.5-5.1); Sodium 141 mmol/L (136-145); Total Bilirubin 0.3 mg/dL (0.15-1.2); Total Protein 6.9 g/dL (6.6-8.7)
[2023-07-12 15:31] LABS: Immunoglobulin IGG 732 mg/dL (700-1600)
[2023-07-12 15:32] LABS: Immunoglobulin IGA < 50 mg/dL (70-400); Immunoglobulin IGM < 25 mg/dL (40-230)
[2023-07-13] MEDS: acetaminophen 325 mg Tablet 650 MG PO (12:28)
[2023-07-13] MEDS: diphenhydrAMINE 25 mg Capsule PO (12:28)
[2023-07-13 12:50] VITALS: BP 132/87; PULSE 66; RESP 16; TEMP 36.4; O2SAT 98
[2023-07-13] MEDS: immune globulin (Privigen ONC) 40 GM in empty flexible container 1 EACH IV (12:50)
[2023-07-13 13:10] VITALS: BP 155/90; PULSE 67; RESP 16; TEMP 36.7; O2SAT 95
[2023-07-13 13:26] VITALS: BP 148/89; PULSE 67; RESP 16; TEMP 36.4; O2SAT 98
[2023-07-13 14:40] VITALS: BP 119/74; PULSE 74; RESP 16; O2SAT 98
[2023-07-13 15:25] VITALS: BP 143/82; PULSE 78; RESP 16; TEMP 36.4; O2SAT 97
== END 2023-07-14 23:59 | disposition home or self-care (01) ==
PROVIDERS: Nurse Practitioner Family; PCP Emergency Medicine Emergency Medical Services; Visit Provider Internal Medicine Medical Oncology
DX: D80.1 Nonfamilial hypogammaglobulinemia (principal); Z53.9 Procedure and treatment not carried out, unspecified reason; Z79.620 Long term (current) use of immunosuppressive biologic; Z79.899 Other long term (current) drug therapy; J01.90 Acute sinusitis, unspecified
CPT/HCPCS: 36415; 80053; 82784; 85025; 96365; 96366; 99214; J1459

== ENCOUNTER 2023-08-10 11:30 | Oncology outpatient (recurring) (ONCR) | payer OTHER, SELFPAY ==
[2023-08-09 13:49] LABS: Basophils # 0.1 10^3/uL (0.0-0.1); Basophils % 0.7 %; Eosinophils # 0.4 10^3/uL (0.0-0.8); Eosinophils % 4.2 %; Lymphocytes # 1.3 10^3/uL (0.8-4.8); Lymphocytes % 14.6 %; Mean Corpuscular HGB Conc 34.1 g/dL (30-55); Mean Corpuscular Hemoglobin 30.4 pg (27-33); Mean Corpuscular Volume 89.1 fl (82-101); Mean Platelet Volume 9.9 fL (7.4-10.4); Monocytes # 0.8 10^3/uL (0.2-0.9); Monocytes % 9.5 %; Neutrophils # 6.21 10^3/uL (1.8-7.7); Neutrophils % 70.4 %; Nucleated Red Blood Cells % 0 %; Platelet Count 260 10^3/cmm (157-399); Red Blood Count 4.94 10^6/uL (3.85-5.65); Red Cell Distribution Width 13.1 % (12.1-15.1); White Blood Count 8.82 10^3/uL (3.29-11.43)
[2023-08-09 14:04] LABS: Alanine Aminotransferase 59 U/L (0-41); Albumin Level 4.4 g/dL (3.5-5.2); Alkaline Phosphatase 96 U/L (40-130); Anion Gap 14.7 (5-19); Aspartate Amino Transferase 39 U/L (0-40); Blood Urea Nitrogen 14 mg/dL (6-20); Carbon Dioxide 28 mmol/L (22-29); Chloride 100 mmol/L (98-107); Globulin 2.5 g/dL (1.3-4.6); Glomerular Filtration Rate 76.7 mL/min (90-130); Glucose 80 mg/dL (65-115); Immunoglobulin IGG 804 mg/dL (700-1600); Osmolality Calculated 287 mOsm/kg (285-295); Potassium 3.7 mmol/L (3.5-5.1); Sodium 139 mmol/L (136-145); Total Bilirubin 0.4 mg/dL (0.15-1.2); Total Protein 6.9 g/dL (6.6-8.7)
[2023-08-09 14:07] LABS: Immunoglobulin IGA < 50 mg/dL (70-400); Immunoglobulin IGM < 25 mg/dL (40-230)
[2023-08-10] VITALS (8 sets, daily range): BP systolic 128–154; BP diastolic 85–98; PULSE 61–93; RESP 16; TEMP 36.3–36.7; O2SAT 95–97
[2023-08-10] MEDS: diphenhydrAMINE 25 mg Capsule PO (12:33)
[2023-08-10] MEDS: acetaminophen 325 mg Tablet 650 MG PO (12:33)
[2023-08-10] MEDS: immune globulin (Privigen ONC) 40 GM in empty flexible container 1 EACH IV (12:56)
== END 2023-08-14 23:59 | disposition home or self-care (01) ==
PROVIDERS: Internal Medicine; PCP Emergency Medicine Emergency Medical Services; Visit Provider Internal Medicine Medical Oncology
DX: D80.1 Nonfamilial hypogammaglobulinemia (principal); Z53.9 Procedure and treatment not carried out, unspecified reason; Z79.899 Other long term (current) drug therapy
CPT/HCPCS: 36415; 80053; 82784; 85025; 96365; 96366; 99214; J1459

== ENCOUNTER 2023-09-07 12:30 | Oncology outpatient (recurring) (ONCR) | payer OTHER, SELFPAY ==
[2023-09-06 12:19] LABS: Basophils # 0.1 10^3/uL (0.0-0.1); Basophils % 0.8 %; Eosinophils # 0.3 10^3/uL (0.0-0.8); Eosinophils % 4.1 %; Hematocrit 41.3 % (37-53); Lymphocytes # 0.8 10^3/uL (0.8-4.8); Lymphocytes % 11.4 %; Mean Corpuscular HGB Conc 34.6 g/dL (30-55); Mean Corpuscular Hemoglobin 30.6 pg (27-33); Mean Corpuscular Volume 88.4 fl (82-101); Mean Platelet Volume 9.9 fL (7.4-10.4); Monocytes # 0.6 10^3/uL (0.2-0.9); Monocytes % 8.1 %; Neutrophils # 5.31 10^3/uL (1.8-7.7); Nucleated Red Blood Cells % 0 %; Platelet Count 244 10^3/cmm (157-399); Red Blood Count 4.67 10^6/uL (3.85-5.65); White Blood Count 7.08 10^3/uL (3.29-11.43)
[2023-09-06 12:39] LABS: Alanine Aminotransferase 28 U/L (0-41); Albumin Level 4.2 g/dL (3.5-5.2); Alkaline Phosphatase 106 U/L (40-130); Anion Gap 13.2 (5-19); Aspartate Amino Transferase 24 U/L (0-40); Blood Urea Nitrogen 13 mg/dL (6-20); Calcium 9.3 mg/dL (8.5-10.5); Carbon Dioxide 27 mmol/L (22-29); Chloride 101 mmol/L (98-107); Globulin 2.8 g/dL (1.3-4.6); Glomerular Filtration Rate 68.8 mL/min (90-130); Glucose 116 mg/dL (65-115); Immunoglobulin IGG 798 mg/dL (700-1600); Osmolality Calculated 285 mOsm/kg (285-295); Potassium 4.2 mmol/L (3.5-5.1); Sodium 137 mmol/L (136-145); Total Bilirubin 0.4 mg/dL (0.15-1.2)
[2023-09-06 12:40] LABS: Immunoglobulin IGA < 50 mg/dL (70-400); Immunoglobulin IGM < 25 mg/dL (40-230)
[2023-09-07] VITALS (9 sets, daily range): BP systolic 113–139; BP diastolic 72–84; PULSE 54–89; RESP 16; TEMP 36.5–36.8; O2SAT 95–99
[2023-09-07] MEDS: diphenhydrAMINE 25 mg Capsule PO (13:20)
[2023-09-07] MEDS: acetaminophen 325 mg Tablet 650 MG PO (13:20)
[2023-09-07] MEDS: immune globulin (Privigen ONC) 40 GM in empty flexible container 1 EACH IV (13:40)
== END 2023-09-13 23:59 | disposition home or self-care (01) ==
PROVIDERS: PCP Emergency Medicine Emergency Medical Services; Visit Provider Internal Medicine Medical Oncology
DX: Z53.9 Procedure and treatment not carried out, unspecified reason (principal); D80.1 Nonfamilial hypogammaglobulinemia
CPT/HCPCS: 36415; 80053; 82784; 85025; 96365; 96366; J1459

== ENCOUNTER 2023-10-04 09:49 | Oncology outpatient (recurring) (ONCR) | payer OTHER, SELFPAY ==
[2023-10-04] VITALS (10 sets, daily range): BP systolic 130–153; BP diastolic 50–90; PULSE 60–72; RESP 16–18; TEMP 36.2–36.9; O2SAT 94–97
[2023-10-04] MEDS: acetaminophen 325 mg Tablet 650 MG PO (11:26)
[2023-10-04] MEDS: diphenhydrAMINE 25 mg Capsule PO (11:27)
[2023-10-04] MEDS: immune globulin (Privigen ONC) 40 GM in empty flexible container 1 EACH 26.8000000000000007 GM IV (11:48)
== END 2023-10-14 23:59 | disposition home or self-care (01) ==
LOC: ONCMED 09:49
PROVIDERS: PCP Emergency Medicine Emergency Medical Services; Visit Provider Internal Medicine Medical Oncology
DX: Z53.9 Procedure and treatment not carried out, unspecified reason (principal); D80.1 Nonfamilial hypogammaglobulinemia
CPT/HCPCS: 96365; 96366; J1459

== ENCOUNTER 2023-11-02 13:00 | Oncology outpatient (recurring) (ONCR) | payer OTHER, SELFPAY ==
[2023-11-01 13:35] LABS: Basophils # 0.1 10^3/uL (0.0-0.1); Basophils % 0.9 %; Eosinophils # 0.3 10^3/uL (0.0-0.8); Eosinophils % 4.5 %; Hematocrit 44.7 % (37-53); Lymphocytes # 0.9 10^3/uL (0.8-4.8); Lymphocytes % 13.3 %; Mean Corpuscular HGB Conc 34.7 g/dL (30-55); Mean Corpuscular Hemoglobin 30.6 pg (27-33); Mean Corpuscular Volume 88.2 fl (82-101); Mean Platelet Volume 9.9 fL (7.4-10.4); Monocytes # 0.5 10^3/uL (0.2-0.9); Monocytes % 7.7 %; Neutrophils # 5.02 10^3/uL (1.8-7.7); Neutrophils % 73.5 %; Nucleated Red Blood Cells % 0 %; Platelet Count 283 10^3/cmm (157-399); Red Blood Count 5.07 10^6/uL (3.85-5.65); Red Cell Distribution Width 12.7 % (12.1-15.1); White Blood Count 6.84 10^3/uL (3.29-11.43)
[2023-11-01 13:52] LABS: Alanine Aminotransferase 28 U/L (0-41); Albumin Level 4.8 g/dL (3.5-5.2); Alkaline Phosphatase 100 U/L (40-130); Anion Gap 18.1 (5-19); Aspartate Amino Transferase 33 U/L (0-40); Blood Urea Nitrogen 12 mg/dL (6-20); Calcium 9.6 mg/dL (8.5-10.5); Carbon Dioxide 25 mmol/L (22-29); Chloride 102 mmol/L (98-107); Glomerular Filtration Rate 68.8 mL/min (90-130); Glucose 102 mg/dL (65-115); Immunoglobulin IGG 853 mg/dL (700-1600); Osmolality Calculated 292 mOsm/kg (285-295); Potassium 4.1 mmol/L (3.5-5.1); Sodium 141 mmol/L (136-145); Total Bilirubin 0.5 mg/dL (0.15-1.2); Total Protein 7.8 g/dL (6.6-8.7)
[2023-11-01 13:53] LABS: Immunoglobulin IGA < 50 mg/dL (70-400); Immunoglobulin IGM < 25 mg/dL (40-230)
[2023-11-02] VITALS (9 sets, daily range): BP systolic 119–153; BP diastolic 76–96; PULSE 64–78; RESP 16–18; TEMP 36.1–36.6; O2SAT 95–98
[2023-11-02] MEDS: acetaminophen 325 mg Tablet 650 MG PO (13:27)
[2023-11-02] MEDS: diphenhydrAMINE 25 mg Capsule PO (13:27)
[2023-11-02] MEDS: immune globulin (Privigen ONC) 20 GM, immune globulin (Privigen-ONC) 10 GM in empty fle... 26.1000000000000014 GM IV (13:43)
== END 2023-11-13 23:59 | disposition home or self-care (01) ==
PROVIDERS: PCP Emergency Medicine Emergency Medical Services; Visit Provider Internal Medicine Medical Oncology
DX: Z53.9 Procedure and treatment not carried out, unspecified reason (principal); D80.1 Nonfamilial hypogammaglobulinemia; Z79.899 Other long term (current) drug therapy
CPT/HCPCS: 36415; 80053; 82784; 85025; 96365; 96366; 99214; J1459

== ENCOUNTER 2023-11-30 12:18 | Oncology outpatient (recurring) (ONCR) | payer OTHER, SELFPAY ==
[2023-11-30] VITALS (9 sets, daily range): BP systolic 134–153; BP diastolic 69–89; PULSE 65–84; RESP 16–17; TEMP 36–37.1; O2SAT 96–99
--- OUTSIDE RECORDS SUMMARY | 2023-11-30 12:22 | XMS_ITS | Patient Health Record ---
Author Name Unknown Organization [facility] Address [address] [place] [address] Support Name Relationship Address Phone Aayush Charles Guarantor Unknown [phone] Reason For Referral No Information Medications Medication SIG (Take, Route, Frequency, Duration) Notes Start Date End Date Status Bupropion Bupropion 03/22/2017 Active sildenafil 100 MG Oral Tablet sildenafil 100 MG Oral Tablet 03/22/2017 Active trazodone Trazodone 03/22/2017 Active Immunizations Vaccine Route Administration Date Status Comme nts Influenza (whole), CPT 86007 Inactive Unknown 02/20/2017 Administered Influenza (whole), CPT 31520 Inactive Unknown 02/23/2018 Administered Plan Of Treatment No Information
[2023-11-30] MEDS: diphenhydrAMINE 25 mg Capsule PO (12:46)
[2023-11-30] MEDS: acetaminophen 325 mg Tablet 650 MG PO (12:46)
[2023-11-30] MEDS: immune globulin (Privigen ONC) 20 GM, immune globulin (Privigen-ONC) 10 GM in empty fle... IV (13:18)
== END 2023-12-14 23:59 | disposition home or self-care (01) ==
PROVIDERS: PCP Emergency Medicine Emergency Medical Services; Visit Provider Internal Medicine Medical Oncology
DX: D80.1 Nonfamilial hypogammaglobulinemia
CPT/HCPCS: 96365; 96366; J1459

== ENCOUNTER 2023-12-28 12:03 | Oncology outpatient (recurring) (ONCR) | payer OTHER, SELFPAY ==
[2023-12-28] VITALS (10 sets, daily range): BP systolic 128–158; BP diastolic 73–92; PULSE 57–78; RESP 16–17; TEMP 35.6–37.1; O2SAT 96–98
[2023-12-28] MEDS: diphenhydrAMINE 25 mg Capsule PO (13:20)
[2023-12-28] MEDS: acetaminophen 325 mg Tablet 650 MG PO (13:20)
[2023-12-28] MEDS: immune globulin (Privigen ONC) 20 GM, immune globulin (Privigen-ONC) 10 GM in empty fle... IV (13:55)
== END 2024-01-14 23:59 | disposition home or self-care (01) ==
PROVIDERS: PCP Emergency Medicine Emergency Medical Services; Visit Provider Internal Medicine Medical Oncology
DX: D80.1 Nonfamilial hypogammaglobulinemia (principal); Z79.899 Other long term (current) drug therapy
CPT/HCPCS: 96365; 96366; J1459

== ENCOUNTER 2024-01-25 11:53 | Oncology outpatient (recurring) (ONCR) | payer OTHER, SELFPAY ==
[2024-01-25] VITALS (9 sets, daily range): BP systolic 119–169; BP diastolic 70–96; PULSE 68–89; RESP 16; TEMP 36.4–37.2; O2SAT 92–98
--- OUTSIDE RECORDS SUMMARY | 2024-01-25 11:55 | XMS_ITS | Patient Health Record ---
Author Name Unknown Organization [facility] Address [address] [place] [address] Support Name Relationship Address Phone Aayush Charles Guarantor Unknown [phone] Reason For Referral No Information Medications Medication SIG (Take, Route, Frequency, Duration) Notes Start Date End Date Status Bupropion Bupropion 03/22/2017 Active sildenafil 100 MG Oral Tablet sildenafil 100 MG Oral Tablet 03/22/2017 Active trazodone Trazodone 03/22/2017 Active Immunizations Vaccine Route Administration Date Status Comme nts Influenza (whole), CPT 43047 Inactive Unknown 02/20/2017 Administered Influenza (whole), CPT 24471 Inactive Unknown 02/23/2018 Administered Plan Of Treatment No Information
--- OUTSIDE RECORDS SUMMARY | 2024-01-25 11:55 | XMS_ITS ---
Author Name Unknown Organization [facility] Address [address] [place] [address] Care Team Providers Care Sociology Professor Name Role Phone Ángela Laboy [phone] REASON FOR VISIT disc placed in archive Encounters Encounter Location Date Provider Diagnosis [facility] [address] [place] [address] [address] [place] [address] 08/04/2022 Ángela Laboy Plan Of Treatment No Information Progress Notes * Charles LOONEYDOB: [birth year] (57 yo M)Acc No.[id number]:08/04/2022 Patient:?Charles Looney :1965???Age:57 Y???Sex:Male Address:[address] [place] [address] * true * Date:? Generated for Neris alvarez/Ivana/eTransmitting on:?01/25/2024 11:55 AM CDT
[2024-01-25] MEDS: acetaminophen 325 mg Tablet 650 MG PO (12:26)
[2024-01-25] MEDS: diphenhydrAMINE 25 mg Capsule PO (12:26)
[2024-01-25 12:30] LABS: Basophils # 0.1 10^3/uL (0.0-0.1); Basophils % 0.7 %; Eosinophils # 0.5 10^3/uL (0.0-0.8); Eosinophils % 5.2 %; Hematocrit 44.6 % (37-53); Lymphocytes # 0.9 10^3/uL (0.8-4.8); Lymphocytes % 10.3 %; Mean Corpuscular HGB Conc 34.5 g/dL (30-55); Mean Corpuscular Hemoglobin 30.7 pg (27-33); Mean Platelet Volume 9.5 fL (7.4-10.4); Monocytes # 0.6 10^3/uL (0.2-0.9); Monocytes % 6.9 %; Neutrophils # 6.57 10^3/uL (1.8-7.7); Neutrophils % 76.4 %; Nucleated Red Blood Cells % 0 %; Platelet Count 279 10^3/cmm (157-399); Red Blood Count 5.01 10^6/uL (3.85-5.65); Red Cell Distribution Width 12.3 % (12.1-15.1)
[2024-01-25 12:45] LABS: Alanine Aminotransferase 86 U/L (0-41); Albumin Level 4.7 g/dL (3.5-5.2); Alkaline Phosphatase 112 U/L (40-130); Anion Gap 18.1 (5-19); Aspartate Amino Transferase 150 U/L (0-40); Blood Urea Nitrogen 13 mg/dL (6-20); Calcium 9.5 mg/dL (8.5-10.5); Carbon Dioxide 25 mmol/L (22-29); Chloride 100 mmol/L (98-107); Creatinine Clr Calc Pharmacy 87.4475; Globulin 2.5 g/dL (1.3-4.6); Glomerular Filtration Rate 76.7 mL/min (90-130); Glucose 112 mg/dL (65-115); Osmolality Calculated 289 mOsm/kg (285-295); Potassium 4.1 mmol/L (3.5-5.1); Sodium 139 mmol/L (136-145); Total Bilirubin 0.3 mg/dL (0.15-1.2); Total Protein 7.2 g/dL (6.6-8.7)
[2024-01-25] MEDS: immune globulin (Privigen ONC) 20 GM, immune globulin (Privigen-ONC) 10 GM in empty fle... IV (13:15)
[2024-01-25 13:21] LABS: Immunoglobulin IGG 765 mg/dL (700-1600)
[2024-01-25 13:38] LABS: Immunoglobulin IGA < 50 mg/dL (70-400); Immunoglobulin IGM < 25 mg/dL (40-230)
== END 2024-02-13 23:59 | disposition home or self-care (01) ==
LOC: ONCMED 11:53
PROVIDERS: PCP Emergency Medicine Emergency Medical Services; Visit Provider Internal Medicine Medical Oncology
DX: D80.1 Nonfamilial hypogammaglobulinemia (principal); Z79.899 Other long term (current) drug therapy
CPT/HCPCS: 80053; 82784; 85025; 96365; 96366; J1459

== ENCOUNTER 2024-02-22 11:41 | Oncology outpatient (recurring) (ONCR) | payer OTHER, SELFPAY ==
[2024-02-22] VITALS (9 sets, daily range): BP systolic 123–167; BP diastolic 71–94; PULSE 63–78; RESP 16–17; TEMP 36.4–36.9; O2SAT 96–98
--- OUTSIDE RECORDS SUMMARY | 2024-02-22 11:42 | XMS_ITS | Patient Health Record ---
Author Name Unknown Organization [facility] Address [address] [place] [address] Support Name Relationship Address Phone Aayush Charles Guarantor Unknown [phone] Reason For Referral No Information Medications Medication SIG (Take, Route, Frequency, Duration) Notes Start Date End Date Status Bupropion Bupropion 03/22/2017 Active sildenafil 100 MG Oral Tablet sildenafil 100 MG Oral Tablet 03/22/2017 Active trazodone Trazodone 03/22/2017 Active Immunizations Vaccine Route Administration Date Status Comme nts Influenza (whole), CPT 11907 Inactive Unknown 02/20/2017 Administered Influenza (whole), CPT 53169 Inactive Unknown 02/23/2018 Administered Plan Of Treatment No Information
[2024-02-22] MEDS: diphenhydrAMINE 25 mg Capsule PO (12:07)
[2024-02-22] MEDS: acetaminophen 325 mg Tablet 650 MG PO (12:07)
[2024-02-22] MEDS: immune globulin (Privigen ONC) 40 GM in empty flexible container 1 EACH IV (12:49)
== END 2024-03-15 23:59 | disposition home or self-care (01) ==
PROVIDERS: PCP Emergency Medicine Emergency Medical Services; Visit Provider Nurse Practitioner Family
DX: D80.1 Nonfamilial hypogammaglobulinemia (principal); Z79.899 Other long term (current) drug therapy
CPT/HCPCS: 96365; 96366; 96375; J1459

== ENCOUNTER 2024-03-09 09:53 | Outpatient (CLI) | payer OTHER, SELFPAY ==
--- NOTE | 2024-03-09 09:59 | CTR_ITS ---
PROCEDURE INFORMATION: Exam: CT Chest Without Contrast; Diagnostic Exam date and time: 03/09/2024 10:02 AM Age: 58 years old Clinical indication: Cough and shortness of breath; Patient HX: SOB, cough, HX of asthma; Additional info: Compare to previous abnormal imaging TECHNIQUE: Imaging protocol: Diagnostic computed tomography of the chest without contrast. Radiation optimization: All CT scans at this facility use at least one of these dose optimization techniques: automated exposure control; mA and/or kV adjustment per patient size (includes targeted exams where dose is matched to clinical indication); or iterative reconstruction. COMPARISON: CT chest con [id number] 02/17/2023 7:25 AM RADIATION DOSE METRICS: Total DLP (mGy-cm): 471.8 FINDINGS: Lungs: Right apical scarring is again seen. However, there appears to be an increase masslike opacity along the area of scarring which now measures 2.9 x 2.1 cm, previously 2.5 x 1.4 cm. Small residual infiltrates in the right lower lobe are improved from prior. However, there is interval worsening in consolidative and ground-glass opacities with areas of tree-in-bud nodularity in the left upper lobe/lingula and left lower lobe. Calcified granuloma in the right lower lobe. Pleural spaces: Unremarkable. No pneumothorax. No pleural effusion. Heart: Pericardial calcifications again seen. No pericardial effusion. Normal heart size. Coronary arteries: Moderate coronary artery calcifications. Lymph nodes: Mildly increased size of the 1.0 cm right upper paratracheal node, previously 0.9 cm. A few additional prominent mediastinal and hilar lymph nodes are similar to prior. Calcified subcarinal and right hilar lymph nodes. Vasculature: The ascending thoracic aorta remains mildly dilated, measuring up to 4.2 cm in caliber. A few scattered atherosclerotic aortic calcifications are seen. Spleen: Calcified splenic granulomas. Bones/joints: Stable intraosseous hemangioma at T9. No acute or aggressive osseous lesion. Degenerative changes of the thoracic spine. Soft tissues: Unremarkable. CT/CT chest con [id number] IMPRESSION: 1. Interval worsening areas of infiltrate in the left upper lobe/lingula and left lower lobe, concerning for pneumonia. 2. Mild residual infiltrates in the right lower lobe with interval improvement. 3. Increased masslike opacity in an area of scarring in the right upper lobe. Findings are nonspecific, but developing neoplasm is not entirely excluded. Recommend either PET-CT for further characterization or short interval follow-up CT chest in 2-3 months to evaluate for improvement. 4. Prominent mediastinal hilar lymph nodes could be reactive. Attention on follow-up imaging recommended.
== END 2024-03-09 09:54 | disposition home or self-care (01) ==
LOC: RAD 09:54
PROVIDERS: PCP Emergency Medicine Emergency Medical Services; Visit Provider Nurse Practitioner Family
DX: R91.8 Other nonspecific abnormal finding of lung field (principal); J84.10 Pulmonary fibrosis, unspecified; D80.1 Nonfamilial hypogammaglobulinemia; R93.89 Abnormal findings on diagnostic imaging of other specified body structures; I25.84 Coronary atherosclerosis due to calcified coronary lesion; D73.89 Other diseases of spleen; D18.09 Hemangioma of other sites
CPT/HCPCS: 71250

== ENCOUNTER 2024-04-06 09:49 | Oncology outpatient (recurring) (ONCR) | payer OTHER, SELFPAY ==
[2024-03-20 14:42] LABS: Basophils # 0.1 10^3/uL (0.0-0.1); Basophils % 1.2 %; Eosinophils # 0.5 10^3/uL (0.0-0.8); Eosinophils % 6.7 %; Hematocrit 41.2 % (37-53); Lymphocytes # 0.8 10^3/uL (0.8-4.8); Lymphocytes % 11.4 %; Mean Corpuscular HGB Conc 34.2 g/dL (30-55); Mean Corpuscular Hemoglobin 30.5 pg (27-33); Mean Platelet Volume 10.1 fL (7.4-10.4); Monocytes # 0.6 10^3/uL (0.2-0.9); Monocytes % 9.2 %; Neutrophils # 4.85 10^3/uL (1.8-7.7); Neutrophils % 71.2 %; Nucleated Red Blood Cells % 0 %; Platelet Count 245 10^3/cmm (157-399); Red Blood Count 4.63 10^6/uL (3.85-5.65); Red Cell Distribution Width 13.2 % (12.1-15.1); White Blood Count 6.82 10^3/uL (3.29-11.43)
[2024-03-20 15:07] LABS: Alanine Aminotransferase 56 U/L (0-41); Albumin Level 4.4 g/dL (3.5-5.2); Alkaline Phosphatase 124 U/L (40-130); Anion Gap 16.7 (5-19); Aspartate Amino Transferase 48 U/L (0-40); Blood Urea Nitrogen 10 mg/dL (6-20); Calcium 8.8 mg/dL (8.5-10.5); Carbon Dioxide 26 mmol/L (22-29); Chloride 102 mmol/L (98-107); Globulin 2.3 g/dL (1.3-4.6); Glomerular Filtration Rate 76.7 mL/min (90-130); Glucose 94 mg/dL (65-115); Immunoglobulin IGG 786 mg/dL (700-1600); Osmolality Calculated 291 mOsm/kg (285-295); Potassium 3.7 mmol/L (3.5-5.1); Sodium 141 mmol/L (136-145); Total Bilirubin 0.2 mg/dL (0.15-1.2); Total Protein 6.7 g/dL (6.6-8.7)
[2024-03-20 15:10] LABS: Immunoglobulin IGA < 50 mg/dL (70-400); Immunoglobulin IGM < 25 mg/dL (40-230)
[2024-03-21] VITALS (9 sets, daily range): BP systolic 132–150; BP diastolic 78–90; PULSE 67–84; RESP 16; TEMP 36.4–36.7; O2SAT 94–98
--- OUTSIDE RECORDS SUMMARY | 2024-03-21 12:23 | XMS_ITS | Patient Health Record ---
Author Name Unknown Organization [facility] Address [address] [place] [address] Support Name Relationship Address Phone Aayush Charles Guarantor Unknown [phone] Reason For Referral No Information Medications Medication SIG (Take, Route, Frequency, Duration) Notes Start Date End Date Status Bupropion Bupropion 03/22/2017 Active sildenafil 100 MG Oral Tablet sildenafil 100 MG Oral Tablet 03/22/2017 Active trazodone Trazodone 03/22/2017 Active Immunizations Vaccine Route Administration Date Status Comme nts Influenza (whole), CPT 77388 Inactive Unknown 02/20/2017 Administered Influenza (whole), CPT 49385 Inactive Unknown 02/23/2018 Administered Plan Of Treatment No Information
[2024-03-21] MEDS: acetaminophen 325 mg Tablet 650 MG PO (13:01)
[2024-03-21] MEDS: immune globulin (Privigen ONC) 40 GM in empty flexible container 1 EACH IV (13:10)
--- NOTE | 2024-04-06 10:00 | PETR_ITS ---
PROCEDURE INFORMATION: Exam: PET/CT Skull Base to Mid-thigh Exam date and time: 04/06/2024 10:40 AM Age: 58 years old Clinical indication: Abnormal findings; Rul mass identified on 03/09/24; Additional info: Further eval of rul mass identified on 03/09/24 LABS AND CLINICAL REPORTS: Glucose: 111 mg/dl Treatment strategy for malignancy (PET staging): Initial Staging (PI) TECHNIQUE: Imaging protocol: Following at least four-hour fasting and following the injection of radiopharmaceutical, low dose CT images were obtained. Then, PET images were obtained. Attenuation corrected images were constructed using the CT scan. Fused images of PET and CT were reviewed. The standardized uptake values (SUV) reported below are maximum values within a region of interest, expressed in gm/ml. Exam includes orbital meatal line to mid-thigh. SUV normalization method: BodyWeight Radiopharmaceutical: 12.13 mCi F-18 FDG (Fluorodeoxyglucose), IV. Time of imaging post radiopharmaceutical administration: 46 minutes Injection site: left ac COMPARISON: 1. CT angio chest PE protcl [id number] 04/25/2021 8:[address] chest wo con [id number] 03/09/2024 10:[address] chest wo con [id number] 02/17/2023 7:[address] angio chest PE protcl [id number] 12/07/2022 2:53 PM FINDINGS: Brain: Visualized brain has normal physiologic uptake. Pharynx: No abnormal uptake. Larynx: No abnormal uptake. Lungs, pleura and trachea: Intervally stable right upper lobe opacity measuring 3.0 x 2.0 cm on axial image 274 shows very low-level FDG uptake with SUV max 1.8. This appears to have been present since at least April 2021 with mild waxing and waning. Bibasilar platelike atelectasis versus scarring. Right basilar calcified granuloma. No pleural effusion. Heart: Normal physiologic uptake. Stable pericardial calcification. Mediastinal space: No abnormal uptake. Liver: No abnormal uptake. Gallbladder and biliary ducts: No abnormal uptake. Pancreas: No abnormal uptake. Spleen: No abnormal uptake. Adrenal glands: No abnormal uptake. Kidneys and ureters: Normal physiologic uptake. Stomach and bowel: No abnormal uptake. Vasculature: No abnormal uptake. Mild systemic atherosclerotic calcification with stable ascending aortic ectasia measuring 4.1 cm. Lymph nodes: No abnormal uptake. No lymphadenopathy in the head, neck, chest, abdomen, pelvis, and extremities. Calcified mediastinal and right hilar lymph nodes in keeping with sequela of old granulomatous disease. Skeleton: Mild degenerative changes along the spine, sacroiliac joints, and acromioclavicular joints. T9 intraosseous hemangioma. Soft tissues: No abnormal uptake in the visualized head, neck, chest, abdomen, pelvis, and extremities. METRICS: Mediastinal blood pool: SUV mean 2.1 Liver uptake: SUV 2.5 PET/PET skull to thigh INIT [id number] IMPRESSION: 1. Very low-level FDG uptake at intervally stable right upper lobe opacity present since at least April 2021 with mild waxing and waning on comparison exams favors benignity. 2. No FDG avid lymphadenopathy.
== END 2024-04-14 23:59 | disposition home or self-care (01) ==
LOC: RAD 09:49 → ONCMED 09:49
PROVIDERS: Internal Medicine Medical Oncology; PCP Emergency Medicine Emergency Medical Services; Visit Provider Nurse Practitioner Family
DX: R91.8 Other nonspecific abnormal finding of lung field (principal)
CPT/HCPCS: 36415; 78815; 80053; 82784; 85025; 96365; 96366; 99214; A9552; J1459

== ENCOUNTER 2024-05-15 11:30 | Oncology outpatient (recurring) (ONCR) | payer OTHER, SELFPAY ==
[2024-04-18] VITALS (9 sets, daily range): BP systolic 129–156; BP diastolic 53–80; PULSE 61–97; RESP 18; TEMP 36.1–36.9; O2SAT 97–98
[2024-04-18 11:11] LABS: Basophils # 0.1 10^3/uL (0.0-0.1); Basophils % 0.5 %; Eosinophils # 0.5 10^3/uL (0.0-0.8); Eosinophils % 4.9 %; Hematocrit 46.8 % (37-53); Lymphocytes # 0.9 10^3/uL (0.8-4.8); Lymphocytes % 7.9 %; Mean Corpuscular HGB Conc 33.8 g/dL (30-55); Mean Corpuscular Hemoglobin 30.3 pg (27-33); Mean Corpuscular Volume 89.8 fl (82-101); Mean Platelet Volume 9.8 fL (7.4-10.4); Monocytes # 0.8 10^3/uL (0.2-0.9); Monocytes % 7.5 %; Neutrophils # 8.62 10^3/uL (1.8-7.7); Neutrophils % 78.7 %; Nucleated Red Blood Cells % 0 %; Platelet Count 326 10^3/cmm (157-399); Red Blood Count 5.21 10^6/uL (3.85-5.65); Red Cell Distribution Width 13.2 % (12.1-15.1); White Blood Count 10.97 10^3/uL (3.29-11.43)
[2024-04-18 11:45] LABS: Alanine Aminotransferase 51 U/L (0-41); Albumin Level 4.5 g/dL (3.5-5.2); Alkaline Phosphatase 143 U/L (40-130); Aspartate Amino Transferase 39 U/L (0-40); Blood Urea Nitrogen 17 mg/dL (6-20); Calcium 9.2 mg/dL (8.5-10.5); Carbon Dioxide 25 mmol/L (22-29); Chloride 102 mmol/L (98-107); Creatinine Clr Calc Pharmacy 80.8127; Globulin 2.6 g/dL (1.3-4.6); Glomerular Filtration Rate 68.8 mL/min (90-130); Glucose 139 mg/dL (65-115); Immunoglobulin IGG 847 mg/dL (700-1600); Osmolality Calculated 294 mOsm/kg (285-295); Sodium 140 mmol/L (136-145); Total Bilirubin 0.2 mg/dL (0.15-1.2); Total Protein 7.1 g/dL (6.6-8.7)
[2024-04-18 11:49] LABS: Immunoglobulin IGA < 50 mg/dL (70-400); Immunoglobulin IGM < 25 mg/dL (40-230)
[2024-04-18 11:50] LABS: Anion Gap 17.3 (5-19); Potassium 4.3 mmol/L (3.5-5.1)
[2024-04-18] MEDS: acetaminophen 325 mg Tablet 650 MG PO (13:04)
[2024-04-18] MEDS: immune globulin (Privigen ONC) 40 GM in empty flexible container 1 EACH IV (13:28)
== END 2024-05-15 23:59 | disposition home or self-care (01) ==
PROVIDERS: PCP Emergency Medicine Emergency Medical Services; Visit Provider Nurse Practitioner Family
DX: Z53.9 Procedure and treatment not carried out, unspecified reason
CPT/HCPCS: 80053; 82784; 85025; 96365; 96366; 99214; J1459

== ENCOUNTER 2024-06-13 12:00 | Oncology outpatient (recurring) (ONCR) | payer OTHER, SELFPAY ==
[2024-05-22] MEDS: acetaminophen 325 mg Tablet 650 MG PO (13:18)
[2024-05-22] MEDS: immune globulin (Privigen ONC) 40 GM in empty flexible container 1 EACH IV (14:08)
[2024-05-22 14:20] VITALS: BP 139/91; PULSE 64; RESP 17; TEMP 36.2; O2SAT 97
[2024-05-22 14:40] VITALS: BP 145/90; PULSE 85; RESP 17; TEMP 36.2; O2SAT 97
[2024-05-22 14:54] VITALS: BP 138/88; PULSE 84; RESP 16; TEMP 36.7; O2SAT 97
[2024-05-22 15:40] VITALS: BP 135/81; PULSE 68; RESP 16; TEMP 36.3; O2SAT 97
[2024-05-22 16:14] VITALS: BP 147/80; PULSE 61; RESP 16; TEMP 36.7; O2SAT 97
== END 2024-06-15 23:59 | disposition home or self-care (01) ==
PROVIDERS: PCP Emergency Medicine Emergency Medical Services; Visit Provider Nurse Practitioner Family
DX: Z53.9 Procedure and treatment not carried out, unspecified reason; Z45.2 Encounter for adjustment and management of vascular access device
CPT/HCPCS: 96365; 96366; J1459

== ENCOUNTER 2024-06-19 11:53 | Oncology outpatient (recurring) (ONCR) | payer OTHER, SELFPAY ==
[2024-06-19] MEDS: diphenhydrAMINE 25 mg Capsule PO (12:36)
[2024-06-19] MEDS: acetaminophen 325 mg Tablet 650 MG PO (12:37)
[2024-06-19 13:00] VITALS: BP 141/91; PULSE 74; RESP 16; TEMP 36.4; O2SAT 95
[2024-06-19] MEDS: immune globulin (Privigen ONC) 40 GM in empty flexible container 1 EACH IV (13:02)
[2024-06-19 13:50] VITALS: BP 157/86; PULSE 76; RESP 16; TEMP 36.6; O2SAT 97
[2024-06-19 14:55] VITALS: BP 168/84; PULSE 71; RESP 16; TEMP 36.6; O2SAT 96
[2024-06-19 15:07] VITALS: BP 143/91; PULSE 66; RESP 16; TEMP 36.8; O2SAT 96
[2024-06-19 15:13] VITALS: BP 143/91; PULSE 66; RESP 16; TEMP 36.8; O2SAT 96
== END 2024-07-13 23:59 | disposition home or self-care (01) ==
PROVIDERS: PCP Emergency Medicine Emergency Medical Services; Visit Provider Nurse Practitioner Family
DX: D80.1 Nonfamilial hypogammaglobulinemia (principal); Z79.899 Other long term (current) drug therapy
CPT/HCPCS: 96365; 96366; J1459

== ENCOUNTER 2024-07-17 11:35 | Oncology outpatient (recurring) (ONCR) | payer OTHER, SELFPAY ==
[2024-07-17] MEDS: acetaminophen 325 mg Tablet 650 MG PO (12:48)
[2024-07-17] MEDS: diphenhydrAMINE 25 mg Capsule PO (12:49)
[2024-07-17] MEDS: immune globulin (Privigen ONC) 40 GM in empty flexible container 1 EACH IV (13:32)
[2024-07-17 13:34] VITALS: BP 143/95; PULSE 77; TEMP 36.6; O2SAT 95
[2024-07-17 14:10] VITALS: BP 131/83; RESP 18; TEMP 36.7; O2SAT 96
[2024-07-17 14:20] VITALS: BP 138/92; PULSE 73; TEMP 36.8; O2SAT 97
--- NOTE | 2024-07-17 15:47 | PC.NURSE ---
Pt receiving IVIG infusion. Pt notified this nurse that his arm at IV site was swelling. This nurse turned off infusion and DC'd IV. Ice pack applied to site. Pt does not complain of pain in arm. Slight redness noted on arm. New IV site started in pts left AC.
[2024-07-17 15:54] VITALS: BP 150/93; PULSE 77; TEMP 36.7; O2SAT 96
== END 2024-08-13 23:59 | disposition home or self-care (01) ==
LOC: ONCMED 11:36
PROVIDERS: PCP Emergency Medicine Emergency Medical Services; Visit Provider Nurse Practitioner Family
DX: D80.1 Nonfamilial hypogammaglobulinemia (principal); Z79.899 Other long term (current) drug therapy
CPT/HCPCS: 96365; 96366; A4222; J1459; J9999

== ENCOUNTER 2024-09-12 13:00 | Oncology outpatient (recurring) (ONCR) | payer OTHER, SELFPAY ==
[2024-08-14] MEDS: diphenhydrAMINE 25 mg Capsule PO (12:50)
[2024-08-14] MEDS: acetaminophen 325 mg Tablet 650 MG PO (12:50)
[2024-08-14] MEDS: immune globulin (Privigen ONC) 40 GM in empty flexible container 1 EACH IV (13:02)
[2024-08-14 13:08] VITALS: BP 148/79; PULSE 73; TEMP 36.4; O2SAT 96
[2024-08-14 13:20] VITALS: BP 121/72; PULSE 70; RESP 16; TEMP 36.4; O2SAT 97
[2024-08-14 15:10] VITALS: BP 132/74; PULSE 70; RESP 16; TEMP 36.4; O2SAT 96
[2024-09-12] MEDS: acetaminophen 325 mg Tablet 650 MG PO (12:33)
[2024-09-12 13:00] VITALS: BP 158/83; PULSE 69; RESP 17; TEMP 37.1; O2SAT 95
[2024-09-12] MEDS: immune globulin (Privigen ONC) 40 GM in empty flexible container 1 EACH IV (13:01)
[2024-09-12 13:20] VITALS: BP 148/90; PULSE 68; RESP 16; TEMP 36.9; O2SAT 95
[2024-09-12 13:35] VITALS: BP 130/79; PULSE 66; RESP 16; TEMP 36.9; O2SAT 95
[2024-09-12 14:25] VITALS: BP 143/80; PULSE 70; RESP 17; TEMP 37; O2SAT 95
[2024-09-12 15:47] VITALS: BP 152/89; PULSE 67
== END 2024-09-12 23:59 | disposition home or self-care (01) ==
PROVIDERS: PCP Emergency Medicine Emergency Medical Services; Visit Provider Internal Medicine Medical Oncology
DX: Z53.9 Procedure and treatment not carried out, unspecified reason (principal); D80.1 Nonfamilial hypogammaglobulinemia; Z79.899 Other long term (current) drug therapy
CPT/HCPCS: 96365; 96366; J1459; J9999

== ENCOUNTER 2024-10-10 12:31 | Oncology outpatient (recurring) (ONCR) | payer OTHER, SELFPAY ==
[2024-10-10] MEDS: acetaminophen 325 mg Tablet 650 MG PO (13:05)
[2024-10-10 13:10] LABS: Basophils # 0.1 10^3/uL (0.0-0.1); Basophils % 0.5 %; Eosinophils # 0.4 10^3/uL (0.0-0.8); Eosinophils % 4.3 %; Hematocrit 42.1 % (37-53); Lymphocytes # 0.8 10^3/uL (0.8-4.8); Lymphocytes % 8.5 %; Mean Corpuscular Hemoglobin 29.8 pg (27-33); Mean Corpuscular Volume 87.7 fl (82-101); Mean Platelet Volume 10.1 fL (7.4-10.4); Monocytes # 0.7 10^3/uL (0.2-0.9); Monocytes % 6.9 %; Neutrophils # 7.47 10^3/uL (1.8-7.7); Neutrophils % 79.4 %; Nucleated Red Blood Cells % 0 %; Platelet Count 250 10^3/cmm (157-399); Red Cell Distribution Width 12.8 % (12.1-15.1); White Blood Count 9.41 10^3/uL (3.29-11.43)
[2024-10-10 13:29] LABS: Alanine Aminotransferase 83 U/L (0-41); Albumin Level 4.2 g/dL (3.5-5.2); Alkaline Phosphatase 122 U/L (40-130); Aspartate Amino Transferase 47 U/L (0-40); Blood Urea Nitrogen 16 mg/dL (6-20); Calcium 8.7 mg/dL (8.5-10.5); Carbon Dioxide 22 mmol/L (22-29); Chloride 102 mmol/L (98-107); Globulin 2.6 g/dL (1.3-4.6); Glomerular Filtration Rate 86.4 mL/min (90-130); Glucose 109 mg/dL (65-115); Osmolality Calculated 288 mOsm/kg (285-295); Sodium 138 mmol/L (136-145); Total Bilirubin 0.3 mg/dL (0.15-1.2); Total Protein 6.8 g/dL (6.6-8.7)
[2024-10-10] MEDS: immune globulin (Privigen ONC) 40 GM in empty flexible container 1 EACH IV (13:31)
[2024-10-10 13:34] VITALS: BP 149/79; PULSE 76; RESP 16; TEMP 36.6; O2SAT 96
[2024-10-10 13:49] VITALS: BP 128/77; PULSE 75; RESP 16; TEMP 36.7; O2SAT 94
[2024-10-10 15:45] VITALS: BP 131/80; PULSE 74; RESP 16; TEMP 36; O2SAT 94
== END 2024-10-13 23:59 | disposition home or self-care (01) ==
LOC: ONCMED 12:32
PROVIDERS: PCP Emergency Medicine Emergency Medical Services; Visit Provider Internal Medicine Medical Oncology
DX: D80.1 Nonfamilial hypogammaglobulinemia (principal); Z79.899 Other long term (current) drug therapy
CPT/HCPCS: 80053; 85025; 96365; 96366; J1459; J9999

== ENCOUNTER 2024-10-20 10:31 | Emergency (ER) | payer OTHER, SELFPAY ==
[2024-10-20 10:54] VITALS: BP 139/92; PULSE 72; RESP 16; TEMP 36.6; O2SAT 97; BMI 31.9
--- NOTE | 2024-10-20 10:54 | XRR_ITS ---
PROCEDURE INFORMATION: Exam: XR Chest Exam date and time: 10/20/2024 11:14 AM Age: 59 years old Clinical indication: Shortness of breath; Additional info: SOB TECHNIQUE: Imaging protocol: Radiologic exam of the chest. Views: 1 view. COMPARISON: CT chest con [id number] 03/09/2024 10:02 AM FINDINGS: Lungs: Unremarkable. No consolidation. Pleural spaces: Unremarkable. No pleural effusion. No pneumothorax. Heart/Mediastinum: Unremarkable. No cardiomegaly. Bones/joints: Unremarkable. XR/XR chest 1V portable [id number] IMPRESSION: No acute findings.
--- NOTE | 2024-10-20 11:02 | W.ED.URI ---
HPI - URI/Sore Throat General: Chief Complaint: Upper Respiratory Infection Stated Complaint: trouble breathing Time Seen by Provider: 10/20/24 10:59 History of Present Illness: 59-year-old male presents with some congestion. Patient reports that he has hypogammaglobinemia and takes IVIG. Patient reports that he was told that anytime he gets respiratory issues he should be evaluated. Patient states that for the last 5 days he has had this congestion and he said that he should come in this morning. He been taking some ogao-dat-nhcixck medications. He also has a underlying history of asthma. Patient denies any fever or chills. Associated symptoms: Reports nasal congestion; Deny abdominal pain, chills, fever(s), headache(s), nausea or vomiting Related Data Home Medications ?Medication ?Instructions ?Recorded ?Confirmed multivitamin 1 tab PO DAILY 12/07/22 04/18/24 sildenafil 100 mg tablet 100 mg PO .2 TIMES PER WEEK PRN 12/07/22 04/18/24 Erectile Dysfunction venlafaxine 150 mg tablet,extended 150 mg PO DAILY 12/07/22 04/18/24 release 24 hr ascorbic acid (vitamin C) 500 mg 500 mg PO DAILY PRN 01/10/23 04/18/24 capsule,extended release (Vitamin C) aspirin 81 mg tablet,delayed 81 mg PO DAILY 01/10/23 04/18/24 release (Adult Aspirin Regimen) cholecalciferol (vitamin D3) 25 25 mcg PO DAILY PRN 01/10/23 04/18/24 mcg (1,000 unit) capsule diltiazem HCl 120 mg 120 mg PO BID 01/10/23 04/18/24 capsule,extended release 12 hr magnesium 250 mg tablet 250 mg PO DAILY PRN 01/10/23 04/18/24 trazodone 100 mg tablet 200 mg PO DAILY 01/10/23 04/18/24 zinc acetate 50 mg (zinc) capsule 50 mg PO DAILY PRN 01/10/23 04/18/24 budesonide-formoterol HFA 80 1 inh inhalation DAILY 02/04/23 04/18/24 mcg-4.5 mcg/actuation aerosol inhaler (Symbicort) tamsulosin 0.4 mg capsule 0.4 mg PO DAILY 11/02/23 04/18/24 Previous Rx's ?Medication ?Instructions ?Recorded albuterol sulfate 90 mcg/actuation 2 puff inhalation Q6H PRN 12/10/22 aerosol inhaler Shortness Of Breath #8.5 grams amoxicillin 875 mg-potassium 1 tab PO BID #10 tabs 03/21/24 clavulanate 125 mg tablet Allergies Allergy/AdvReac Type Severity Reaction Status Date / Time No Known Allergies Allergy Verified 04/18/24 11:29 Review of Systems Const: Denies: fever(s) or chills ENMT: Reports: nasal congestion Resp: Reports: chest congestion GI: Denies: abdominal pain, nausea or vomiting Skin/Breast: Denies: rash or pruritus Neuro: Denies: headache(s) PFSH ED PFSH: Medical History Atrial fibrillation Hypogammaglobulinemia Tailor's bunion of right foot Gastritis Colitis Chronic diarrhea Essential (primary) hypertension Hyperlipemia Major depressive disorder Asthma PTSD (post-traumatic stress disorder) Pericarditis Lung nodule Surgical History History of esophagogastroduodenoscopy (EGD) 2020 H/O eye surgery Family History Father CAD (coronary artery disease), Onset Age: 59 Sister Arrhythmia Family/Other CAD (coronary artery disease) Social History Smoking and tobacco/nicotine status: never used tobacco/nicotine Alcohol intake: current Alcohol intake frequency: few times a month Alcohol type: beer Substance/Drug Use: never Lives independently: Yes Household members: significant other and family Marital status: Single service: Yes Current occupational status: employed Current occupation: [employer] Do you think of yourself as: Straight/Heterosexual Current gender identity: Male Physical Exam Const: COMMON NORMALS: no acute distress, patient oriented x3, no limitations and alert Resp: COMMON NORMALS: clear to auscultation bilaterally EFFORT & INSPECTION: Yes able to speak in complete sentences and Yes symmetric chest movement AUSCULTATION: clear to auscultation bilaterally and lung sounds not diminished Cardio: COMMON NORMALS: regular rate and regular rhythm RATE: regular rate RHYTHM: regular rhythm GI: COMMON NORMALS: Soft to palpation and non-tender PALPATION: Yes Soft to palpation Neuro: COMMON NORMALS: patient oriented x3 and no focal motor deficits SENSORIUM/ORIENTATION: Yes alert Psych: COMMON NORMALS: mental status grossly normal, Normal thought process present, normal affect and speech normal SPEECH: Yes normal speech THOUGHT PROCESS: Normal thought process present Skin: COMMON NORMALS: no rashes or lesions noted GENERAL SKIN EXAM: no rashes or lesions noted Course Vital Signs: Vital signs: Vital Signs Temperature 97.8 F 10/20/24 10:54 Pulse Rate 61 10/20/24 12:46 Respiratory Rate 16 10/20/24 10:54 Blood Pressure 139/92 10/20/24 10:54 Pulse Oximetry 97 10/20/24 12:46 Oxygen Delivery Me thod Room Air 10/20/24 12:46 MDM - URI/Sore Throat Medical Decision Making Patient's diagnostic studies were reviewed interpreted by me. Patient is negative white count or labs. Patient with a negative respiratory panel. Patient's chest x-ray shows no acute findings. Patient with 2 negative EKGs that shows sinus rhythm with a first-degree AV block with both of them having a heart rate 62, no acute ST changes or elevation noted. Did have a pattern that was consistent with pulmonary disease. Patient troponins were near his baseline based on review of his prior labs. Patient's physical exam was benign. Patient does not have any findings consistent with viral or bacterial upper respiratory infection. His symptoms are much more consistent with likely some allergies or seasonal cause of some chest congestion. Discussed with him supportive care. He should follow-up with his primary care provider as needed. He was stable and discharged home. Lab Data 10/20/24 11:09 10/20/24 11:09 Radiology Impressions Chest X-Ray 10/20/24 10:54 IMPRESSION: No acute findings. Laboratory Results WBC 8.74 10^3/uL (3.29-11.43) 10/20/24 11:09 RBC 4.97 10^6/uL (3.85-5.65) 10/20/24 11:09 Hgb 14.80 g/dL (11.27-16.99) 10/20/24 11:09 Hct 44.3 % (37-53) 10/20/24 11:09 MCV 89.1 fl (82-101) 10/20/24 11:09 MCH 29.8 pg (27-33) 10/20/24 11:09 MCHC 33.4 g/dL (30-55) 10/20/24 11:09 RDW 12.6 % (12.1-15.1) 10/20/24 11:09 Plt Count 285 10^3/cmm (157-399) 10/20/24 11:09 MPV 10.0 fL (7.4-10.4) 10/20/24 11:09 Neut % (Auto) 76.0 % 10/20/24 11:09 Lymph % (Auto) 8.8 % 10/20/24 11:09 Morgan % (Auto) 9.4 % 10/20/24 11:09 Eos % (Auto) 4.6 % 10/20/24 11:09 Baso % (Auto) 0.7 % 10/20/24 11:09 Neut # (Auto) 6.65 10^3/uL (1.8-7.7) 10/20/24 11:09 Lymph # (Auto) 0.8 10^3/uL (0.8-4.8) 10/20/24 11:09 Morgan # (Auto) 0.8 10^3/uL (0.2-0.9) 10/20/24 11:09 Eos # (Auto) 0.4 10^3/uL (0.0-0.8) 10/20/24 11:09 Baso # (Auto) 0.1 10^3/uL (0.0-0.1) 10/20/24 11:09 Nucleated RBC % (auto) 0 % 10/20/24 11:09 Nucleated RBCs # 0.0 /100WBC 10/20/24 11:09 Sodium 138 mmol/L (136-145) 10/20/24 11:09 Potassium 4.1 mmol/L (3.5-5.1) 10/20/24 11:09 Chloride 103 mmol/L (98-107) 10/20/24 11:09 Carbon Dioxide 23 mmol/L (22-29) 10/20/24 11:09 Anion Gap 16.1 (5-19) 10/20/24 11:09 BUN 20 mg/dL (6-20) 10/20/24 11:09 Creatinine 1.0 mg/dL (0.7-1.2) 10/20/24 11:09 GFR Calculation 76.5 mL/min (90-130) L 10/20/24 11:09 Glucose 87 mg/dL (65-115) 10/20/24 11:09 Calculated Osmolality 288 mOsm/kg (285-295) 10/20/24 11:09 Calcium 9.1 mg/dL (8.5-10.5) 10/20/24 11:09 Total Bilirubin 0.2 mg/dL (0.15-1.2) 10/20/24 11:09 AST 35 U/L (0-40) 10/20/24 11:09 ALT 51 U/L (0-41) H 10/20/24 11:09 Alkaline Phosphatase 143 U/L (40-130) H 10/20/24 11:09 Troponin T Baseline 26 ng/L (0-15) H 10/20/24 11:09 Troponin T 120 Minute 22.79 ng/L (0-15) H 10/20/24 13:11 Delta Troponin T -3.21 ABS# (0-10) L 10/20/24 13:11 NT-Pro-B Natriuret Pep 43 pg/mL (0-125) 10/20/24 11:09 Total Protein 7.0 g/dL (6.6-8.7) 10/20/24 11:09 Albumin 4.3 g/dL (3.5-5.2) 10/20/24 11:09 Globulin 2.7 g/dL (1.3-4.6) 10/20/24 11:09 Adenovirus (PCR) Not detected (NOT DETECT) 10/20/24 11:23 C. pneumoniae DNA (PCR) Not detected (NOT DETECT) 10/20/24 11:23 Coronavirus 229E (PCR) Not detected (NOT DETECT) 10/20/24 11:23 Human Metapneumovir PCR Not detected (NOT DETECT) 10/20/24 11:23 Influenza A (H1) PCR Not detected (NOT DETECT) 10/20/24 11:23 Influ A (H1/09) PCR Not detected (NOT DETECT) 10/20/24 11:23 Influenza A (H3) PCR Not detected (NOT DETECT) 10/20/24 11:23 Influenza Type A (PCR) Not detected (NOT DETECT) 10/20/24 11:23 Influenza Type B (PCR) Not detected (NOT DETECT) 10/20/24 11:23 M. pneumoniae (PCR) Not detected (NOT DETECT) 10/20/24 11:23 Parainfluenza 1 (PCR) Not detected (NOT DETECT) 10/20/24 11:23 Parainfluenza 2 (PCR) Not detected (NOT DETECT) 10/20/24 11:23 Parainfluenza 3 (PCR) Not detected (NOT DETECT) 10/20/24 11:23 Parainfluenza 4 (PCR) Not detected (NOT DETECT) 10/20/24 11:23 RSV Type A (PCR) Not detected (NOT DETECT) 10/20/24 11:23 RSV Type B (PCR) Not detected (NOT DETECT) 10/20/24 11:23 Entero/Rhino (PCR) Not detected (NOT DETECT) 10/20/24 11:23 SARS-CoV-2 (PCR) Not detected (NOT DETECT) 10/20/24 11:23 All radiology interpretation(s) finalized by discharge Discharge Plan Discharge Patient Disposition: Home Clinical Impression: Chest congestion Condition: Stable Prescriptions: No Action cholecalciferol (vitamin D3) 25 mcg (1,000 unit) capsule 25 mcg PO DAILY PRN budesonide-formoterol [Symbicort] 80-4.5 mcg/actuation HFA aerosol inhaler 1 inh inhalation DAILY aspirin [Adult Aspirin Regimen] 81 mg tablet,delayed release (DR/EC) 81 mg PO DAILY ascorbic acid (vitamin C) [Vitamin C] 500 mg capsule, extended release 500 mg PO DAILY PRN diltiazem HCl 120 mg capsule,extended release 12 hr 120 mg PO BID amoxicillin-pot clavulanate 875-125 mg tablet 1 tab PO BID Qty: 10 0RF tamsulosin 0.4 mg capsule 0.4 mg PO DAILY multivitamin Tablet 1 tab PO DAILY sildenafil 100 mg Tablet 100 mg PO .2 TIMES PER WEEK PRN (Reason: Erectile Dysfunction) Rx Instructions: administer 30 minutes to 4 hours before activity venlafaxine 150 mg Tablet Extended Release 24hr 150 mg PO DAILY albuterol sulfate 90 mcg/actuation HFA aerosol inhaler 2 puff INHALATION Q6H PRN (Reason: Shortness Of Breath) Qty: 8.5 0RF trazodone 100 mg tablet 200 mg PO DAILY magnesium 250 mg tablet 250 mg PO DAILY PRN zinc acetate 50 mg (zinc) capsule 50 mg PO DAILY PRN Discharge Orders: Discharge ED (Routine); Ordered 10/20/24 Ordered By: Bhargav Peters Referrals: Christiano Whitt, DO [Primary Care Provider, Emergency Medicine] Discharge Diet: Usual diet Discharge Activity: Resume usual activity Patient Instructions: Rhinosinusitis (DC), Allergies (ED), Opioid Safety, Pain Management Activity Restrictions/Additional Instructions: Please consider starting Cherelle, Claritin,, Zyrtec or similar antihistamine along with Flonase or Nasacort nasal spray. Please follow-up with your primary care provider in a couple days for recheck of your symptoms. Please use your albuterol inhaler every 6 hours while awake for the next 24 hours then as needed. Print Language: Slovenian Coding Level of Care Code ED Animal Nutrition Teacher for Tahir Gloria
[2024-10-20 11:22] LABS: Basophils # 0.1 10^3/uL (0.0-0.1); Basophils % 0.7 %; Eosinophils # 0.4 10^3/uL (0.0-0.8); Eosinophils % 4.6 %; Hematocrit 44.3 % (37-53); Lymphocytes # 0.8 10^3/uL (0.8-4.8); Lymphocytes % 8.8 %; Mean Corpuscular HGB Conc 33.4 g/dL (30-55); Mean Corpuscular Hemoglobin 29.8 pg (27-33); Mean Corpuscular Volume 89.1 fl (82-101); Monocytes # 0.8 10^3/uL (0.2-0.9); Monocytes % 9.4 %; Neutrophils # 6.65 10^3/uL (1.8-7.7); Nucleated Red Blood Cells % 0 %; Platelet Count 285 10^3/cmm (157-399); Red Blood Count 4.97 10^6/uL (3.85-5.65); Red Cell Distribution Width 12.6 % (12.1-15.1); White Blood Count 8.74 10^3/uL (3.29-11.43)
[2024-10-20 11:38] LABS: Troponin(5th) Baseline 26 ng/L (0-15)
[2024-10-20 11:46] LABS: Alanine Aminotransferase 51 U/L (0-41); Albumin Level 4.3 g/dL (3.5-5.2); Alkaline Phosphatase 143 U/L (40-130); Anion Gap 16.1 (5-19); Aspartate Amino Transferase 35 U/L (0-40); Blood Urea Nitrogen 20 mg/dL (6-20); Calcium 9.1 mg/dL (8.5-10.5); Carbon Dioxide 23 mmol/L (22-29); Chloride 103 mmol/L (98-107); Creatinine Clr Calc Pharmacy 89.0343; Globulin 2.7 g/dL (1.3-4.6); Glomerular Filtration Rate 76.5 mL/min (90-130); Glucose 87 mg/dL (65-115); NT Pro B Type Natriuretic Pept 43 pg/mL (0-125); Osmolality Calculated 288 mOsm/kg (285-295); Potassium 4.1 mmol/L (3.5-5.1); Sodium 138 mmol/L (136-145); Total Bilirubin 0.2 mg/dL (0.15-1.2)
--- NOTE | 2024-10-20 12:25 | ECG_ITS ---
[employer] Test Date: 2024-10-20 Pat Name: Charles Looney Department: Room: Gender: Male Collector: : 1965 Requested By: Josue Chaney Order Number: [id number] Reading MD: PRASHANTH BABIN Measurements Intervals [place] Rate: 62 P: -10 MT: 218 QRS: -2 QRSD: 92 T: 0 QT: 407 QTc: 413 Interpretive Statements SINUS RHYTHM WITH FIRST DEGREE AV BLOCK WITH OCCASIONAL SUPRAVENTRICULAR PREMATURE COMPLEXES INDETERMINATE AXIS LOW QRS VOLTAGE IN EXTREMITY LEADS [QRS DEFLECTION < 0.5 mV IN LIMB LEADS] PATTERN CONSISTENT WITH PULMONARY DISEASE Compared to ECG 01/10/2023 09:24:06 Indeterminate axis now present Low QRS voltage now present Myocardial infarct finding no longer present Electronically Signed On 10-20-2024 23:48:54 CDT by PRASHANTH BABIN [email or web address]
[2024-10-20 12:46] VITALS: PULSE 61; O2SAT 97
[2024-10-20 13:25] LABS: Adenovirus Not Detected (NOT DETECT); Chlamydia Pneumoniae Not Detected (NOT DETECT); Coronavirus 229E,HKU1,NL63,OC4 Not Detected (NOT DETECT); Human Metapneumovirus Not Detected (NOT DETECT); Human Rhinovirus/Enterovirus Not Detected (NOT DETECT); Influenza A Not Detected (NOT DETECT); Influenza A H1 Not Detected (NOT DETECT); Influenza A H1-2009 Not Detected (NOT DETECT); Influenza A H3 Not Detected (NOT DETECT); Influenza B Not Detected (NOT DETECT); Mycoplasma Pneumoniae Not Detected (NOT DETECT); Parainfluenza Virus Type 1 Not Detected (NOT DETECT); Parainfluenza Virus Type 2 Not Detected (NOT DETECT); Parainfluenza Virus Type 3 Not Detected (NOT DETECT); Parainfluenza Virus Type 4 Not Detected (NOT DETECT); Respiratory Syncytial Virus A Not Detected (NOT DETECT); Respiratory Syncytial Virus B Not Detected (NOT DETECT); SARS-COV-2 Not Detected (NOT DETECT)
[2024-10-20 13:39] LABS: Troponin 5 2HR 22.79 ng/L (0-15)
[2024-10-20 13:42] LABS: Troponin 5 2HR Delta -3.21 ABS# (0-10)
[2024-10-20 13:51] VITALS: BP 135/90; PULSE 62; O2SAT 96
== END 2024-10-20 13:53 | disposition home or self-care (01) ==
PROVIDERS: Emergency Provider Student in an Organized Health Care Education/Training Program; PCP Emergency Medicine Emergency Medical Services
DX: R09.89 Other specified symptoms and signs involving the circulatory and respiratory systems (principal); Z79.82 Long term (current) use of aspirin; Z11.52 Encounter for screening for COVID-19; I10 Essential (primary) hypertension
CPT/HCPCS: 36415; 71045; 80053; 83880; 84484; 85025; 87486; 87581; 87633; 93005; 99285

== ENCOUNTER 2024-11-07 09:30 | Oncology outpatient (recurring) (ONCR) | payer OTHER, SELFPAY ==
[2024-11-07 09:59] LABS: Basophils # 0.1 10^3/uL (0.0-0.1); Basophils % 0.8 %; Eosinophils # 0.5 10^3/uL (0.0-0.8); Eosinophils % 4.8 %; Hematocrit 42.3 % (37-53); Lymphocytes # 0.9 10^3/uL (0.8-4.8); Lymphocytes % 8.7 %; Mean Corpuscular HGB Conc 34.5 g/dL (30-55); Mean Corpuscular Volume 86.9 fl (82-101); Mean Platelet Volume 10.2 fL (7.4-10.4); Monocytes # 0.9 10^3/uL (0.2-0.9); Monocytes % 9.1 %; Neutrophils # 7.75 10^3/uL (1.8-7.7); Nucleated Red Blood Cells % 0 %; Platelet Count 250 10^3/cmm (157-399); Red Blood Count 4.87 10^6/uL (3.85-5.65); Red Cell Distribution Width 12.8 % (12.1-15.1)
[2024-11-07 10:14] LABS: Alanine Aminotransferase 52 U/L (0-41); Albumin Level 4.2 g/dL (3.5-5.2); Alkaline Phosphatase 157 U/L (40-130); Anion Gap 16.2 (5-19); Aspartate Amino Transferase 34 U/L (0-40); Blood Urea Nitrogen 18 mg/dL (6-20); Calcium 9.2 mg/dL (8.5-10.5); Carbon Dioxide 25 mmol/L (22-29); Chloride 101 mmol/L (98-107); Globulin 3.1 g/dL (1.3-4.6); Glomerular Filtration Rate 68.5 mL/min (90-130); Glucose 96 mg/dL (65-115); Osmolality Calculated 288 mOsm/kg (285-295); Potassium 4.2 mmol/L (3.5-5.1); Sodium 138 mmol/L (136-145); Total Bilirubin 0.3 mg/dL (0.15-1.2); Total Protein 7.3 g/dL (6.6-8.7)
[2024-11-07] MEDS: acetaminophen 325 mg Tablet 650 MG PO (13:05)
[2024-11-07] MEDS: diphenhydrAMINE 25 mg Capsule PO (13:05)
[2024-11-07 13:15] VITALS: BP 136/78; PULSE 74; RESP 18; TEMP 36.4; O2SAT 91
[2024-11-07] MEDS: immune globulin (Privigen ONC) 40 GM in empty flexible container 1 EACH IV (13:20)
[2024-11-07 15:33] VITALS: BP 136/82; PULSE 59; TEMP 36.5
== END 2024-11-12 23:59 | disposition home or self-care (01) ==
PROVIDERS: Nurse Practitioner Family; PCP Emergency Medicine Emergency Medical Services; Visit Provider Internal Medicine Medical Oncology
DX: D80.1 Nonfamilial hypogammaglobulinemia (principal); R91.8 Other nonspecific abnormal finding of lung field; Z79.899 Other long term (current) drug therapy
CPT/HCPCS: 36415; 80053; 85025; 96366; 96374; 99213; J1459; J9999

== ENCOUNTER 2024-12-05 10:43 | Oncology outpatient (recurring) (ONCR) | payer OTHER, SELFPAY ==
[2024-12-05 11:12] VITALS: BP 155/97; PULSE 73; TEMP 36.7; O2SAT 94
[2024-12-05] MEDS: immune globulin (Privigen ONC) 40 GM in empty flexible container 1 EACH IV (11:36)
[2024-12-05 12:07] VITALS: BP 141/87; PULSE 69; RESP 16; TEMP 36.6; TEMP 36.7; O2SAT 95
== END 2024-12-13 23:59 | disposition home or self-care (01) ==
PROVIDERS: PCP Emergency Medicine Emergency Medical Services; Visit Provider Internal Medicine Medical Oncology
DX: D80.1 Nonfamilial hypogammaglobulinemia (principal); Z79.899 Other long term (current) drug therapy
CPT/HCPCS: 96365; 96366; J1459; J9999

== ENCOUNTER 2025-01-02 08:40 | Oncology outpatient (recurring) (ONCR) | payer OTHER, SELFPAY ==
[2025-01-02 09:30] VITALS: BP 135/83; PULSE 80; RESP 16; TEMP 36.4; O2SAT 96
[2025-01-02 10:21] VITALS: BP 145/80; PULSE 60; RESP 16; TEMP 36.5; O2SAT 97
[2025-01-02] MEDS: immune globulin (Privigen ONC) 40 GM in empty flexible container 1 EACH IV (10:21)
[2025-01-02 11:24] VITALS: BP 158/95; PULSE 64; RESP 17; TEMP 36.7; O2SAT 94
[2025-01-02 12:23] VITALS: BP 161/94; PULSE 65; TEMP 36.6; O2SAT 95
[2025-01-02 12:40] LABS: Hematocrit 41.3 % (37-53); Hemoglobin 14.00 g/dL (11.27-16.99); Mean Corpuscular HGB Conc 33.9 g/dL (30-55); Mean Corpuscular Hemoglobin 29.7 pg (27-33); Mean Corpuscular Volume 87.5 fl (82-101); Nucleated Red Blood Cells % 0 %; Platelet Count 240 10^3/cmm (157-399); Red Blood Count 4.72 10^6/uL (3.85-5.65); White Blood Count 7.56 10^3/uL (3.29-11.43)
[2025-01-02 13:00] LABS: Alanine Aminotransferase 73 U/L (0-41); Albumin Level 4.2 g/dL (3.5-5.2); Alkaline Phosphatase 130 U/L (40-130); Anion Gap 15.3 (5-19); Aspartate Amino Transferase 46 U/L (0-40); Blood Urea Nitrogen 15 mg/dL (6-20); Calcium 9.0 mg/dL (8.5-10.5); Carbon Dioxide 23 mmol/L (22-29); Chloride 101 mmol/L (98-107); Creatinine Clr Calc Pharmacy 81.5551; Globulin 3.6 g/dL (1.3-4.6); Glucose 131 mg/dL (65-115); Osmolality Calculated 283 mOsm/kg (285-295); Potassium 4.3 mmol/L (3.5-5.1); Sodium 135 mmol/L (136-145); Total Protein 7.8 g/dL (6.6-8.7)
[2025-01-02 13:33] VITALS: BP 161/95; PULSE 65; TEMP 36.6; O2SAT 95
== END 2025-01-13 23:59 | disposition home or self-care (01) ==
PROVIDERS: Internal Medicine; PCP Emergency Medicine Emergency Medical Services; Visit Provider Internal Medicine Medical Oncology
DX: D80.1 Nonfamilial hypogammaglobulinemia (principal); Z79.899 Other long term (current) drug therapy
CPT/HCPCS: 80053; 85025; 96365; 96366; J1459; J9999

== ENCOUNTER 2025-02-11 14:00 | Oncology outpatient (recurring) (ONCR) | payer OTHER, SELFPAY ==
[2025-01-30 10:18] VITALS: BP 137/97; PULSE 69; RESP 17; TEMP 36.5; O2SAT 95
[2025-01-30] MEDS: immune globulin (Privigen ONC) 40 GM in empty flexible container 1 EACH IV (10:18)
[2025-01-30 10:34] VITALS: BP 141/85; PULSE 71; RESP 17; TEMP 36.6; O2SAT 97
[2025-01-30 10:49] VITALS: BP 137/83; PULSE 67; RESP 17; TEMP 36.3; O2SAT 98
[2025-01-30 12:30] VITALS: BP 137/87; PULSE 67; RESP 17; TEMP 36.1; O2SAT 97
--- NOTE | 2025-02-11 14:00 | CTR_ITS ---
PROCEDURE INFORMATION: Exam: CT Chest With Contrast; Diagnostic Exam date and time: 02/11/2025 2:27 PM Age: 59 years old Clinical indication: Abnormal findings; Abnormal radiologic exam of lung or chest; Additional info: CT chest 02/2024 abnormality TECHNIQUE: Imaging protocol: Diagnostic computed tomography of the chest with contrast. Radiation optimization: All CT scans at this facility use at least one of these dose optimization techniques: automated exposure control; mA and/or kV adjustment per patient size (includes targeted exams where dose is matched to clinical indication); or iterative reconstruction. Contrast material: OMNI 350; Contrast volume: 100 ml; Contrast route: INTRAVENOUS (IV); COMPARISON: PT PET skull to thigh INIT [id number] 04/06/2024 10:40 AM RADIATION DOSE METRICS: Total DLP (mGy-cm): 494.95 FINDINGS: Lungs: Posterior right upper lobe opacity appear stable with prior exam of 2023, of approximately 3 x 2 cm. This is associated with some chronic fibrotic stranding or scarring in the posterior right upper lobe. Lung windows demonstrate mild ill-defined opacity within the mid to posterior left lung base demonstrates interval new appearance from 2023 exam. This could indicate atelectasis or mild infiltrate or development of scarring in the left lung base. Benign calcified granuloma again noted right lung base posteriorly. Pleural spaces: No pleural effusion or pneumothorax. Heart: No significant cardiomegaly or pericardial effusion. Chronic pericardial calcification on the right. Mild coronary artery calcification. Lymph nodes: Nonspecific lymph nodes mediastinal region without significant change with previous exam. Vasculature: Unremarkable. No aortic aneurysm. Bones/joints: Bone windows demonstrate chronic hemangioma T9 vertebra and spondylotic change thoracic spine. Soft tissues: Unremarkable. CT/CT chest w con* [id number] IMPRESSION: 1. Chronic opacity with associated component of fibrosis/scarring posterior right upper lobe, appearing without significant change from prior PET-CT exam 2023. 2. Mild ill-defined opacity mid to posterior left lung base with interval new appearance from 2023 exam. This could be related to atelectasis or mild focal infiltrate or development of scarring. 3. Other chronic changes with prior exam as noted above.
== END 2025-02-12 23:59 | disposition home or self-care (01) ==
LOC: RAD 02-12 00:01 → ONCMED 02-12 10:56
PROVIDERS: PCP Emergency Medicine Emergency Medical Services; Visit Provider Internal Medicine
DX: D80.1 Nonfamilial hypogammaglobulinemia; R91.8 Other nonspecific abnormal finding of lung field; J84.10 Pulmonary fibrosis, unspecified; I31.1 Chronic constrictive pericarditis; I25.10 Atherosclerotic heart disease of native coronary artery without angina pectoris; R59.0 Localized enlarged lymph nodes; D18.09 Hemangioma of other sites; M47.894 Other spondylosis, thoracic region; Z53.9 Procedure and treatment not carried out, unspecified reason
CPT/HCPCS: 71260; 96365; 96366; J1459; J9999

== ENCOUNTER 2025-02-27 09:21 | Oncology outpatient (recurring) (ONCR) | payer OTHER, SELFPAY ==
[2025-02-27 10:00] VITALS: BP 151/78; PULSE 54; RESP 17; TEMP 36.5; O2SAT 96
[2025-02-27] MEDS: immune globulin (Gamunex-C) 40 GM in empty flexible container 1 EACH IV (10:01)
[2025-02-27 10:15] VITALS: BP 151/78; PULSE 68; RESP 68; TEMP 36.2; O2SAT 94
[2025-02-27 12:20] VITALS: BP 124/74; PULSE 66; RESP 17; O2SAT 96
== END 2025-03-15 23:59 | disposition home or self-care (01) ==
LOC: ONCMED 09:22
PROVIDERS: PCP Emergency Medicine Emergency Medical Services; Visit Provider Internal Medicine
DX: D80.1 Nonfamilial hypogammaglobulinemia (principal); Z79.899 Other long term (current) drug therapy
CPT/HCPCS: 96365; 96366; J1561; J9999

== ENCOUNTER 2025-03-27 08:46 | Oncology outpatient (recurring) (ONCR) | payer OTHER, SELFPAY ==
[2025-03-27 09:16] VITALS: BP 148/87; PULSE 73; RESP 16; TEMP 36.4; O2SAT 95
[2025-03-27 09:45] VITALS: BP 151/84; PULSE 72; RESP 16; TEMP 36.4; O2SAT 96
[2025-03-27] MEDS: immune globulin (Gamunex-C) 40 GM in empty flexible container 1 EACH IV (09:45)
[2025-03-27 10:45] VITALS: BP 135/85; PULSE 68; RESP 16; TEMP 36.5; O2SAT 97
[2025-03-27 12:05] VITALS: BP 129/82; PULSE 89; RESP 16; TEMP 36.2; O2SAT 97
== END 2025-04-14 23:59 | disposition home or self-care (01) ==
LOC: ONCMED 08:47
PROVIDERS: PCP Emergency Medicine Emergency Medical Services; Visit Provider Internal Medicine
DX: D80.1 Nonfamilial hypogammaglobulinemia (principal); Z79.899 Other long term (current) drug therapy; Z79.620 Long term (current) use of immunosuppressive biologic
CPT/HCPCS: 96365; 96366; J1561; J9999

== ENCOUNTER 2025-05-14 12:00 | Oncology outpatient (recurring) (ONCR) | payer OTHER, SELFPAY ==
[2025-04-24 10:42] LABS: Hematocrit 41.9 % (37-53); Hemoglobin 14.60 g/dL (11.27-16.99); Mean Corpuscular HGB Conc 34.8 g/dL (30-55); Mean Corpuscular Hemoglobin 30.5 pg (27-33); Mean Corpuscular Volume 87.5 fl (82-101); Nucleated Red Blood Cells % 0 %; Platelet Count 256 10^3/cmm (157-399); Red Blood Count 4.79 10^6/uL (3.85-5.65); White Blood Count 7.23 10^3/uL (3.29-11.43)
[2025-04-24 11:13] LABS: Alanine Aminotransferase 67 U/L (0-41); Albumin Level 4.4 g/dL (3.5-5.2); Alkaline Phosphatase 143 U/L (40-130); Anion Gap 17.3 (5-19); Aspartate Amino Transferase 42 U/L (0-40); Blood Urea Nitrogen 15 mg/dL (6-20); Calcium 9.0 mg/dL (8.5-10.5); Carbon Dioxide 23 mmol/L (22-29); Chloride 104 mmol/L (98-107); Creatinine Clr Calc Pharmacy 82.4830; Globulin 2.5 g/dL (1.3-4.6); Glucose 135 mg/dL (65-115); Osmolality Calculated 293 mOsm/kg (285-295); Potassium 4.3 mmol/L (3.5-5.1); Sodium 140 mmol/L (136-145); Total Protein 6.9 g/dL (6.6-8.7)
[2025-04-24] MEDS: immune globulin (Gamunex-C) 40 GM in empty flexible container 1 EACH IV (11:27)
[2025-04-24 13:44] VITALS: BP 142/85; PULSE 69; RESP 16; TEMP 36.1; O2SAT 97
[2025-04-24 13:45] VITALS: BP 148/78; PULSE 73; RESP 17; TEMP 36.6; O2SAT 95
--- NOTE | 2025-05-14 12:00 | CTR_ITS ---
PROCEDURE INFORMATION: Exam: CT Chest With Contrast; Diagnostic Exam date and time: 05/14/2025 12:07 PM Age: 60 years old Clinical indication: Abnormal findings; Abnormal radiologic exam of lung or chest; Additional info: Change in left lung base per CT 02/11/2025 TECHNIQUE: Imaging protocol: Diagnostic computed tomography of the chest with contrast. Radiation optimization: All CT scans at this facility use at least one of these dose optimization techniques: automated exposure control; mA and/or kV adjustment per patient size (includes targeted exams where dose is matched to clinical indication); or iterative reconstruction. Contrast material: OMNI 350; Contrast volume: 100 ml; Contrast route: INTRAVENOUS (IV); COMPARISON: CT chest w con* [id number] 02/11/2025 2:27 PM RADIATION DOSE METRICS: Total DLP (mGy-cm): 532.28 FINDINGS: Lungs: Nodular consolidation in the right upper lobe measuring 2.6 cm is without significant change. There are a few new ground-glass opacities in the lower lobes bilaterally. Other nodules and ground-glass opacities in the left lower lobe resolved. Left basilar atelectasis/consolidation anteriorly is decreased. Pleural spaces: Unremarkable. No pneumothorax. No pleural effusion. Heart: Anterior pericardial calcification again seen. Lymph nodes: Unremarkable. No enlarged lymph nodes. Vasculature: Unremarkable. No aortic aneurysm. Liver: The liver is diffusely low in density consistent with hepatic steatosis. Bones/joints: Hemangioma in the T9 vertebral body. Soft tissues: Unremarkable. CT/CT chest w con* [id number] IMPRESSION: 1. The left lower lobe/basilar opacities are decreased. 2. Stable dominant nodular consolidation in the right upper lobe. Recommend follow-up. 3. Waxing and waning ground-glass opacities and nodules in the lower lobes. Infectious or inflammatory etiologies are favored.
[2025-05-14] MEDS: iohexol 350 mg/mL 500 mL Btl (per mL) IV (12:13)
== END 2025-05-15 23:59 | disposition home or self-care (01) ==
LOC: RAD 05-15 00:01 → ONCMED 05-15 09:39
PROVIDERS: Internal Medicine Medical Oncology; PCP Emergency Medicine Emergency Medical Services; Visit Provider Internal Medicine
DX: R93.89 Abnormal findings on diagnostic imaging of other specified body structures; R91.8 Other nonspecific abnormal finding of lung field; J98.11 Atelectasis; I31.8 Other specified diseases of pericardium; R93.2 Abnormal findings on diagnostic imaging of liver and biliary tract; D18.09 Hemangioma of other sites; Z53.9 Procedure and treatment not carried out, unspecified reason
CPT/HCPCS: 71260; 80053; 85025; 96365; 96366; 99213; J1561